=== PATIENT | male | born 1990 ===

== ENCOUNTER 2017-04-23 21:02 | Inpatient (IN) ==
--- NOTE | 2017-04-23 21:37 | Emergency Department Note ---
Jennifer Chappell Hilary, am scribing for, and in the presence of, Dmitriy Go MD 21:23. Donavan Chappell Charles R, MD, personally performed the services described in this documentation, ascribed by Kiara Rodriguez in my presence, and it is both accurate and complete . Arrival - Arrival Chief Complaint: Shortness of Breath Stated Complaint: shortness of breath Mode of Arrival: Stretcher Limitations: No Limitations Source: Patient, RN Notes Reviewed Time Seen by Provider: 04/23/17 21:11 - History of Present Illness HPI Narrative: Pt is a 27 y/o male brought into the ED via EMS with c/o trouble breathing which onset 3 days ago and has been getting worse. Pt states that he feels like he cant catch his breath and that he feels like he is smothering when he lays down. PT has a PMHx of cocaine abuse and ETOH abuse. He denies any pain as of now. No other complaints or problems stated in the ED. He openly admits to 10 years of daily cocaine usage, drinks 5 out of 7 days a week and smokes cigarettes. Onset (ago): day(s) Consistency: constant, now resolved Severity: mild Severity scale (1-10): 1 Allergies/Adverse Reactions: Allergies Allergy/AdvReac Type Severity Reaction Status Date / Time No Known Allergies Allergy Verified 04/23/17 21:17 Home Medications: Home Medications Medication Instructions Recorded Confirmed Type No Known Home Medications [No 04/23/17 04/23/17 History Known Home Medications] Review of System - Review of System 12 point system: reviewed and no additional remarkable complaints except as stated - Review of System Constitutional: Absent: fever Cardiovascular: Present: dyspnea on exertion (SOB). Absent: chest pain Medical,Surgical,& Family Hx - Social History Smoking Status: Current every day smoker Frequency of Alcohol Use: Frequently Type of Drug Use: Cocaine Exam Vital Signs: Vital Signs Temperature 97.7 F 04/23/17 21:22 Pulse Rate 106 H 04/23/17 21:22 Respiratory Rate 16 04/23/17 21:22 Blood Pressure 118/98 04/23/17 21:22 O2 Sat by Pulse Oximetry 96 04/23/17 21:22 - General General appearance: alert, in no apparent distress - Head Head exam: Present: atraumatic, normocephalic - Eye Eye exam: Present: normal appearance, PERRL, EOMI - ENT ENT exam: Present: mucous membranes moist, TM's normal bilaterally. Absent: mucous membranes dry - Neck Neck exam: Present: full ROM, trachea midline. Absent: tenderness - Chest Chest inspection: Present: symmetric chest wall rise. Absent: tenderness - Respiratory Respiratory exam: Present: rales (faint base rales), other (winded when he talks ). Absent: respiratory distress - Cardiovascular Cardiovascular exam: Present: normal rhythm, tachycardia, normal heart sounds. Absent: murmur, rubs, gallop - Abdominal Exam Abdominal exam: Present: soft, normal bowel sounds. Absent: distention, tenderness - Extremities Exam Extremities exam: Present: full ROM, pedal edema (+1 ). Absent: tenderness - Back Exam Back exam: Present: full ROM. Absent: tenderness - Neurological Exam Neurological exam: Present: alert, oriented X3, CN II-XII intact. Absent: motor sensory deficit - Psychiatric Psychiatric exam: Present: normal affect, normal mood - Skin Skin exam: Present: warm, dry, intact, normal color. Absent: rash Course - Consultations Consultation #1: Hospitalist will admit patient Time: 21:37 Results - Labs Lab Results: I have reviewed the patients labs Labs: All results reviewed from previous facility Disposition Clinical Impression: Congestive heart failure, Exertional dyspnea, Polysubstance abuse, Cocaine abuse, Methamphetamine abuse, Alcohol abuse Case discussed with: patient Disposition: Still a Patient Condition: Stable Time of Disposition: 21:38
--- NOTE | 2017-04-23 22:23 | Hospitalist History & Physical ---
Assessment and Plan (1) Congestive heart failure Status: Acute Assessment and plan: New onset most likely due to cardiomyopathy from ETOH and drugs Plan Telemetry serial cardiac enzymes, CBC, CMP, PT/INR,CXR,EKG ASA, ACEI, bblocker( will use beta and alpha blockers because cocaine is on board), lovenox IV diuretics, oxygen Nebs treatment Lipids, TSH, HbA1c UDS Echo cardiology consult Fluid restriction Current Visit: Yes (2) Cardiomyopathy Status: Acute Assessment and plan: due to ETOH and drugs to r/o ischemia Plan serial cardiac enzymes Current Visit: Yes (3) Dyspnea Status: Acute Assessment and plan: worse at night. Due to CHF Plan see treatment plan above Current Visit: Yes (4) Alcohol abuse Status: Acute Assessment and plan: Patient has been counseled to quit -thiamine, folic acid, MVA Current Visit: Yes (5) Cocaine abuse Status: Acute Assessment and plan: manager technical services consult for possible outpt rehab -Avoid selective bblockers inorder not to stimulate alpha receptors. Current Visit: Yes History of Present Illness Chief complaint: SOB History of present illness: Mr. Wallace is a 26 year old male with a history of cocaine, Nicotine and ETOH abuse who is currently unemployed and lives with his girlfriend. He was well until 3days ago when he started having SOB mostly at night. He has not been able to sleep well for the past three days because of him waking up every hr gasping for breath. He also cannot lay down flat without being SOB. He states an associated history of PND and cough occasionally productive of whitish- brownish sputum. He has some chest pain and discomfort every now and then. He also states an associated history of fever, chills and rigor. He vomited once but denies abdominal pain or melena stools. There is no associated leg swelling , palpitations or diaphoresis. He has had some diarrhea but no urinary symptoms.Labs from outside facility showed an elevated BNP. Home Medications Medication Instructions Recorded Confirmed Type No Known Home Medications [No 04/23/17 04/23/17 History Known Home Medications] Allergies Allergy/AdvReac Type Severity Reaction Status Date / Time No Known Allergies Allergy Verified 04/23/17 21:17 Medical,Surgical,& Family Hx - Social History Smoking Status: Current every day smoker Frequency of Alcohol Use: Frequently Type of Drug Use: Cocaine Lives With:: girlfriend 12 point system: reviewed and no additional remarkable complaints except as stated Exam - Constitutional Vitals: Period Temp Pulse Resp BP Sys/Miller Pulse Ox Last 24 Hr 97.7 F-97.7 F 98-106 16-18 118-118/98-98 96-98 General appearance: other (appears comfort at 45 degrees to the horizontal) - Head Head exam: Present: normal inspection - Respiratory Respiratory exam: Present: decreased breath sounds - Cardiovascular Cardiovascular exam: Present: regular rate and rhythm - GI/Abdominal GI/Abdominal exam: Present: normal bowel sounds - Extremities Exam Extremities exam: Present: normal inspection - Neurological Exam Neurological exam: Present: alert, oriented X3 Results - Labs Lab Results: I have reviewed the past 24 hour labs
[2017-04-23] MEDS ORDERED: ONDANSETRON 4 MG/2 ML VIAL IV PRN (23:48)
[2017-04-23] MEDS ORDERED: ALBUTEROL/IPRATROPIUM 3 ML NEB RESP TX STA (23:48)
[2017-04-23] MEDS ORDERED: LORazepam 1 MG TABLET PO PRN (23:57)
[2017-04-24] MEDS: ENOXAPARIN 40 MG/0.4 ML SYRINGE SUBCUT SCH ×2 (00:11→21:30)
[2017-04-24] MEDS: NICOTINE 21 MG/24 HR PATCH TRANSDERM PRN (00:16)
[2017-04-24 01:09] LABS: Basophils % 0.4 % (0.0-0.8); Eosinophils # 0.2 10*3/uL (0.0-0.87); Eosinophils % 2.7 % (0.00-10.9); Hematocrit 46.1 VOL% (42.0-52.0); Hemoglobin 15.3 GM/DL (14.0-18.0); Immature Granulocytes % 0.4 %; Immature Granulocytes Absolute 0.03 #; Lymphocytes % 39.1 % (21.2-54.2); Mean Corpuscular HGB Conc 33.2 GM/DL (32-36); Mean Corpuscular Hemoglobin 29 PG (27-34); Mean Platelet Volume 10.1 FL (9.6-12.0); Monocytes # 0.3 10*3/uL (0.11-0.8); Neutrophils # 4.1 10*3/uL (1.4-7.4); Neutrophils % 53.4 % (38.7-73.9); Platelet Count 321 T/CUMM (130-400); Red Blood Count 5.24 MC/CUMM (3.8-5.5); Red Cell Distribution Width 13.7 % (9.3-17.3); White Blood Count 7.7 T/CUMM (4-12)
[2017-04-24 01:35] LABS: Troponin I Only 0.017 NG/ML (0.00-0.045)
[2017-04-24 01:41] LABS: Albumin 3.8 G/DL (3.4-5.0); Bilirubin,Total 1.2 MG/DL (0.2-1.0); Calcium 9.3 MG/DL (8.5-10.1); Osmolality,Calculated 277.4 MOS/KG (273-304); Potassium 3.7 MMOL/L (3.5-5.1); Risk Ratio 5.92; Thyroid Stimulating Hormone 0.927 uIU/ml (0.358-3.74); Total Protein 7.9 G/DL (6.4-8.3); VLDL CHOLESTEROL 26.4 MG/DL
[2017-04-24 02:57] LABS: Apearance,Urine CLEAR (Clear); Blood, Urine Negative (Negative); Glucose,Urine (UA) Negative (Negative); Ketones,Urine Negative (Negative); Mucus,Urine Few /LPF (Occasional); Nitrite,Urine Negative (Negative); Protein,Urine 100 MG/DL; RBC,Urine 1 /HPF (0-4); Squamous Epithelial Cell,Urine Occasional /HPF (0-10); Urine Color Amber (Yellow); Urine Specific Gravity 1.033 (1.001-1.035); WBC,Urine 16 /HPF (0-6)
[2017-04-24 02:58] LABS: Bilirubin,Urine Small mg/dL (Negative)
[2017-04-24 04:48] LABS: Barbiturates Screen,Urine Negative (Negative); Benzodiazepines Screen,Urine Negative (Negative); Cannabinoid Screen,Urine Positive (Negative); Opiate Screen,Urine Negative (Negative); Phencyclidine Screen,Urine Negative (Negative)
--- NOTE | 2017-04-24 07:12 | XRay Report ---
History: Shortness of breath Date: 04/23/2017 Study: Chest x-ray AP portable Comparison exam: No remote chest x-ray There is cardiomegaly. There is mild hilar fullness bilaterally which may represent lymphadenopathy. Consider sarcoidosis. The mediastinal contours are otherwise unremarkable. There is no pulmonary vascular engorgement. The lungs and pleural spaces are clear. Osseous structures are similar. Impression: Cardiomegaly Bilateral hilar prominence which may represent nonspecific lymphadenopathy. Consider sarcoidosis PROCEDURE INTERPRETED AT [facility] DEPARTMENT OF RADIOLOGY Final Report Signed by: Dr. Stephanie Winters
[2017-04-24 07:43] LABS: Troponin I Only 0.023 NG/ML (0.00-0.045)
--- NOTE | 2017-04-24 08:08 | EKG Report ---
Stationary ECG Study [facility] Test Date: 04/24/2017 2:21:50 AM Pat Name: JACOBY MCARTHUR Department: Room: 280 Gender: M Hris Specialist: Earl : 1990 Requested by: Nikki Gonzalez Order Number: [id number] Reading MD: LAUREN BURRIS Intervals [place] Rate: 111 P: 72 WA: 178 QRS: -53 QRSD: 92 T: 33 QT: 309 QTc: 375 Interpretive Statements SINUS TACHYCARDIA LEFT ATRIAL ABNORMALITY ANTEROSEPTAL INFARCT, PREVIOUSLY CITED Electronically Signed On 04-26-17 14:02:19 CDT by LAUREN BURRIS [email or web address]
--- NOTE | 2017-04-24 08:08 | EKG Report ---
Stationary ECG Study [facility] ER Test Date: 04/23/2017 9:10:44 PM Pat Name: JACOBY MCARTHUR Department: Room: 280 Gender: M Chief Medical Technologist: ASHLEIGH : 1990 Requested by: Dmitriy Bowser Order Number: [id number] Reading MD: LAUREN BURRIS Intervals [place] Rate: 106 P: 78 MS: 144 QRS: -69 QRSD: 92 T: 36 QT: 330 QTc: 392 Interpretive Statements SINUS TACHYCARDIA LEFT ATRIAL ABNORMALITY POSSIBLE ANTEROSEPTAL MYOCARDIAL INFARCTION LEFT ATRIAL ABNORMALTIY Electronically Signed On 04-26-17 12:07:49 CDT by LAUREN BURRIS [email or web address]
[2017-04-24] MEDS ORDERED: POTASSIUM CHLORIDE 20 MEQ TABLET PO ONE (09:04)
[2017-04-24] MEDS: ASPIRIN 325 MG TABLET PO SCH (09:07)
[2017-04-24] MEDS: LISINOPRIL 2.5 MG TABLET PO SCH (09:07)
[2017-04-24] MEDS: MULTIVITAMIN (CENTRUM) TABLET PO SCH (09:07)
[2017-04-24] MEDS: PANTOPRAZOLE 40 MG TABLET PO SCH (09:07)
[2017-04-24] MEDS: THIAMINE 100 MG TABLET PO SCH (09:07)
[2017-04-24] MEDS: FOLIC ACID 1 MG TABLET PO SCH (09:07)
[2017-04-24] MEDS: FUROSEMIDE 40 MG/4 ML VIAL IV SCH ×2 (09:08→21:30)
[2017-04-24] MEDS: CARVEDILOL 3.125 MG TABLET PO SCH ×2 (09:08→21:29)
--- NOTE | 2017-04-24 10:37 | Cardiology Consult Note ---
<Carrie Lorenzo E - Last Filed: 04/24/17 10:25> Assessment and Plan - Time spent with patient Time spent with patient: Less than 30 minutes Time spent discussing smoking cessation with patient: 3 to 10 minutes (1) Shortness of breath Status: Acute Assessment and plan: SEE PLAN OF CARE LISTED BELOW Current Visit: Yes (2) Tobacco use Status: Chronic Assessment and plan: SEE PLAN OF CARE LISTED BELOW Current Visit: Yes (3) Sinus tachycardia Status: Acute Assessment and plan: SEE PLAN OF CARE LISTED BELOW Current Visit: Yes (4) Congestive heart failure Status: Acute Assessment and plan: SEE PLAN OF CARE LISTED BELOW Current Visit: Yes Qualifiers: Congestive heart failure chronicity: unspecified congestive heart failure chronicity (5) Polysubstance abuse Status: Chronic Assessment and plan: SEE PLAN OF CARE LISTED BELOW Current Visit: Yes (6) Cocaine abuse Status: Chronic Assessment and plan: SEE PLAN OF CARE LISTED BELOW Current Visit: Yes (7) Alcohol abuse Status: Chronic Assessment and plan: SEE PLAN OF CARE LISTED BELOW Current Visit: Yes History of Present Illness - Data of Consult Patient: new to practice Consult date: 04/24/17 Requesting Physician: Nikki Gonzalez - Consult Narrative Reason for consult: SOB History of present illness: [employer]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 Wallace, 26M, had a known history of cardiac disease. Risk factors include : Illicit drug abuse, specifically marijuana and cocaine, alcohol. Tobacco use daily. Patient was received through the ED of [facility] after being transferred from [facility] April 23, 2017. Patient reports over the past 3 days, he has been orthopneic and unable to sleep. Last evening, he became so orthopneic he felt as if he should be evaluated. Denies chest pain but describes a smothering sensation. This is been consistent over the past 3 days. He was found to be cocaine, marijuana and alcohol positive. Normally, patient reports that he is very active and can perform his activities without chest pain, heaviness, tightness or shortness of breath. ProBNP 2699, cardiac biomarkers negative. EKG does not reveal MT. Chest x-ray reveals bilateral hilar prominence which may represent nonspecific lymphadenopathy, consider sarcoidosis. Echocardiogram has been ordered. He has diuresed a significant amount and is feeling much better. We will await the results of the echocardiogram and further delineate a plan of care. Will further discuss with Dr. Sotelo and await additional recommendations. ASSESSMENT/PLAN: 1. SOB - suspect this is acute CHF. Echocardiogram is pending and will help further delineate cause of shortness of breath. To need diuresis, strict I&O and daily weights. 2. ACUTE CHF - Etiology to be determined, echo pending. NYHA Class III on arrival, now Class II. Will add ABEBA, betablocker if indicated. 3. COCAINE ABUSE - greater than 5 minutes was spent today discussing the merits of cessation of illicit drug use. 4. MARIJUANA ABUSE - greater than 5 minutes was spent today discussing the merits of cessation of illicit drug use. 5. ALCOHOL/TOBACCO ABUSE - greater than 5 minutes was spent today discussing the merits of cessation of alcohol/tobacco use. 6. SINUS TACHYCARDIA - if blood pressure will allow, and after results of echo returned, may consider betablocker. CC: Kell Russell MD - Home Medications and Allergies Home Medications: Home Medications Medication Instructions Recorded Confirmed Type No Known Home Medications [No 04/23/17 04/23/17 History Known Home Medications] Allergies/Adverse Reactions: Allergies Allergy/AdvReac Type Severity Reaction Status Date / Time No Known Allergies Allergy Verified 04/23/17 21:17 Review of systems: REVIEW OF SYSTEMS: - Constitutional Constitutional: Denies fatigue. Absent: syncope, anorexia, night sweats - EENT Eyes: Absent: blurry vision, loss of vision, diplopia Ears: Absent: decreased hearing, ear pain, ear discharge - Cardiovascular Cardiovascular: Denies: chest pain with exertion. Denies edema, palpitations. Absent: chest pain with deep breath, claudication - Respiratory Respiratory: Present: CHRISTENSEN, orthopnea. Denies cough. Absent: wheezing, hemoptysis, change in phlegm color - Gastrointestinal Gastrointestinal: Denies: constipation. Absent: abdominal pain, hematemesis, hematochezia, melena, change in bowel habits, nausea - Genitourinary Genitourinary: Absent: difficulty urinating, dysuria, urinary hesitancy, flank pain - Musculoskeletal Musculoskeletal: Present: back pain Absent: joint swelling, muscle cramps, muscle weakness - Neurological Neurological: Present: normal gait without frequent falls. Absent: dizziness, hemiparesis - Psychiatric Psychiatric: Absent: anxiety, depression, difficulty concentrating - Endocrine Endocrine: Denies fatigue. Absent: cold intolerance, heat intolerance, polyuria , polyphagia, polydipsia - Hematologic/Lymphatic Hematologic/Lymphatic: Present: easy bruising. Absent: easy bleeding -Integumentary Integumentary: Absent: lesions, rashes, skin breakdown Medical,Surgical,& Family Hx - Medical History Cardio: No history of: CAD, Hypertension, MT - Surgical History Thoracic Surgeries: Patient denies;: Lobectomy - Social History Smoking Status: Current every day smoker Have you smoked in the last 12 months: Yes Time spent discussing smoking cessation with patient: 3 to 10 minutes Frequency of Alcohol Use: Frequently Type of Drug Use: Cocaine, Methamphetamine Marital Status: Single Lives With:: Alone Functional capacity: independent ambulation Physical Examination Vital Signs Temp Pulse Resp BP Pulse Ox 97.7 F 106 H 16 118/98 98 04/23/17 21:12 04/23/17 21:12 04/23/17 21:12 04/23/17 21:12 04/23/17 21:12 Exam: General: [Appears well with no apparent distress.] [Pleasant and cooperative. ] [Appears comfortable.] HEENT: [PERRL, normocephalic, atraumatic. Mucous membranes moist. No jaundice noted. Conjunctiva moist and clear, sclerae anicteric] Neck: No JVD/HJR, no thyromegaly or lymphadenopathy noted. No carotid bruit appreciated Cardiac: [Regular rate and rhythm.] [No obvious murmur rub or gallop.] Lungs: [Clear to auscultation without accessory muscle use to assist the respiratory pattern.] Not requiring oxygen Abdomen: Soft, bowel sounds normoactive. Nontender and nondistended. No abdominal bruit or thrill noted. No masses noted. Musculoskeletal: No fluid collection. Decreased range of motion is noted. Extremities: No clubbing, cyanosis noted. [ No edema noted.] Upper extremity pulses 2+. Lower extremity pulses 2+. Capillary refill less than 3 seconds. Skin: No unusual lesions or rashes. No skin breakdown appreciated. Neuro: Awake, alert and oriented 3. Moves all extremities well without hemiparesis or paralysis. No essential tremor is appreciated. Result/EKG - Labs CBC & BMP: 04/24/17 00:51 04/24/17 00:51 Lab Results: I have reviewed the past 24 hour labs Labs: Laboratory Results - last 24 hr 04/24/17 04/24/17 04/24/17 00:51 00:51 00:51 WBC 7.7 RBC 5.24 Hgb 15.3 Hct 46.1 MCV 88.0 MCH 29 MCHC 33.2 RDW 13.7 Plt Count 321 MPV 10.1 Neut % (Auto) 53.4 Lymph % (Auto) 39.1 Candler % (Auto) 4.0 Eos % (Auto) 2.7 Baso % (Auto) 0.4 Neut # (Auto) 4.1 Lymph # (Auto) 3.0 Candler # (Auto) 0.3 Eos # (Auto) 0.2 Baso # (Auto) 0.0 Immature Gran % 0.4 Nucleated RBC % 0.0 Immature Gran # 0.03 Nucleated RBCs # 0.00 Sodium 140 Potassium 3.7 Chloride 106 Carbon Dioxide 27 Anion Gap 10.7 BUN 8 Creatinine 1.00 GFR Calculation 131 BUN/Creatinine Ratio 8.00 Glucose 124 H Hemoglobin A1c Calculated Osmolality 277.4 Calcium 9.3 Magnesium 2.0 Total Bilirubin 1.20 H AST 17 ALT 27 Alkaline Phosphatase 106 Total Creatine Kinase CK-MB (CK-2) Troponin I B-Natriuretic Peptide 827 H Total Protein 7.9 Albumin 3.8 Globulin 4.1 H Albumin/Globulin Ratio 0.9 L Triglycerides 132 Cholesterol 148 LDL Cholesterol 105.0 VLDL Cholesterol 26.4 HDL Cholesterol 25 L Heart Disease Risk Ratio 5.92 TSH 3rd Generation 0.927 Urine Color Urine Appearance Urine pH Ur Specific [place]kin Urine Protein Urine Glucose (UA) Urine Ketones Urine Blood Urine Nitrate Urine Bilirubin Urine Urobilinogen Urine Leukocytes Urine RBC Urine WBC Ur Squamous Epith Cells Urine Mucus Ur Culture Indicated? Urine Opiates Screen Ur Barbiturates Screen Ur Phencyclidine Scrn U Amphetamine/Methamph U Benzodiazepines Scrn U Cocaine Metab Screen U Cannabinoids Screen 04/24/17 04/24/17 04/24/17 00:51 00:51 01:30 WBC RBC Hgb Hct MCV MCH MCHC RDW Plt Count MPV Neut % (Auto) Lymph % (Auto) Candler % (Auto) Eos % (Auto) Baso % (Auto) Neut # (Auto) Lymph # (Auto) Candler # (Auto) Eos # (Auto) Baso # (Auto) Immature Gran % Nucleated RBC % Immature Gran # Nucleated RBCs # Sodium Potassium Chloride Carbon Dioxide Anion Gap BUN Creatinine GFR Calculation BUN/Creatinine Ratio Glucose Hemoglobin A1c 5.0 Calculated Osmolality Calcium Magnesium Total Bilirubin AST ALT Alkaline Phosphatase Total Creatine Kinase 145 CK-MB (CK-2) 1.4 Troponin I 0.017 B-Natriuretic Peptide Total Protein Albumin Globulin Albumin/Globulin Ratio Triglycerides Cholesterol LDL Cholesterol VLDL Cholesterol HDL Cholesterol Heart Disease Risk Ratio TSH 3rd Generation Urine Color Urine Appearance Urine pH Ur Specific [place] Urine Protein Urine Glucose (UA) Urine Ketones Urine Blood Urine Nitrate Urine Bilirubin Urine Urobilinogen Urine Leukocytes Urine RBC Urine WBC Ur Squamous Epith Cells Urine Mucus Ur Culture Indicated? Urine Opiates Screen Negative Ur Barbiturates Screen Negative Ur Phencyclidine Scrn Negative U Amphetamine/Methamph Negative U Benzodiazepines Scrn Negative U Cocaine Metab Screen Positive H U Cannabinoids Screen Positive H 04/24/17 04/24/17 01:30 07:04 WBC RBC Hgb Hct MCV MCH MCHC RDW Plt Count MPV Neut % (Auto) Lymph % (Auto) Candler % (Auto) Eos % (Auto) Baso % (Auto) Neut # (Auto) Lymph # (Auto) Candler # (Auto) Eos # (Auto) Baso # (Auto) Immature Gran % Nucleated RBC % Immature Gran # Nucleated RBCs # Sodium Potassium Chloride Carbon Dioxide Anion Gap BUN Creatinine GFR Calculation BUN/Creatinine Ratio Glucose Hemoglobin A1c Calculated Osmolality Calcium Magnesium Total Bilirubin AST ALT Alkaline Phosphatase Total Creatine Kinase 109 D CK-MB (CK-2) 1.0 Troponin I 0.023 B-Natriuretic Peptide Total Protein Albumin Globulin Albumin/Globulin Ratio Triglycerides Cholesterol LDL Cholesterol VLDL Cholesterol HDL Cholesterol Heart Disease Risk Ratio TSH 3rd Generation Urine Color Araseli Urine Appearance Clear Urine pH 5.0 Ur Specific [place] 1.033 Urine Protein 100 Urine Glucose (UA) Negative Urine Ketones Negative Urine Blood Negative Urine Nitrate Negative Urine Bilirubin Small H Urine Urobilinogen 4.0 H Urine Leukocytes Negative Urine RBC 1 Urine WBC 16 Ur Squamous Epith Cells Occasional Urine Mucus Few Ur Culture Indicated? Results to follow Urine Opiates Screen Ur Barbiturates Screen Ur Phencyclidine Scrn U Amphetamine/Methamph U Benzodiazepines Scrn U Cocaine Metab Screen U Cannabinoids Screen - Diagnostic Findings Procedure: Chest x-ray: report reviewed by me - EKG EKG results: interpreted by mo EKG shows: tachycardia <Josue Sotelo - Last Filed: 04/24/17 11:47> History of Present Illness - Consult Narrative History of present illness: Cardiology addendum Patient examined chart reviewed and discussed with nurse Carrie lorenzo. Patient has cardiomegaly by chest x-ray and heart failure. BNP level 827. This patient has been starting cocaine for the past 10 years, at least 2 or 3 times per week. He also consume 1/5 of whiskey at least twice per week. He has a summation gallop on examination. Plan Echo Doppler IV Lasix 40 mg twice daily Carvedilol 3.125 mg twice daily Lisinopril 2.5 mg daily BMP in a.m. CC: Kell Russell MD Physical Examination Vital Signs Temp Pulse Resp BP Pulse Ox 97.7 F 106 H 16 118/98 98 04/23/17 21:12 04/23/17 21:12 04/23/17 21:12 04/23/17 21:12 04/23/17 21:12 Result/EKG - Labs CBC & BMP: 04/24/17 00:51 04/24/17 00:51 Labs: Laboratory Results - last 24 hr 04/24/17 04/24/17 04/24/17 00:51 00:51 00:51 WBC 7.7 RBC 5.24 Hgb 15.3 Hct 46.1 MCV 88.0 MCH 29 MCHC 33.2 RDW 13.7 Plt Count 321 MPV 10.1 Neut % (Auto) 53.4 Lymph % (Auto) 39.1 Candler % (Auto) 4.0 Eos % (Auto) 2.7 Baso % (Auto) 0.4 Neut # (Auto) 4.1 Lymph # (Auto) 3.0 Candler # (Auto) 0.3 Eos # (Auto) 0.2 Baso # (Auto) 0.0 Immature Gran % 0.4 Nucleated RBC % 0.0 Immature Gran # 0.03 Nucleated RBCs # 0.00 Sodium 140 Potassium 3.7 Chloride 106 Carbon Dioxide 27 Anion Gap 10.7 BUN 8 Creatinine 1.00 GFR Calculation 131 BUN/Creatinine Ratio 8.00 Glucose 124 H Hemoglobin A1c Calculated Osmolality 277.4 Calcium 9.3 Magnesium 2.0 Total Bilirubin 1.20 H AST 17 ALT 27 Alkaline Phosphatase 106 Total Creatine Kinase CK-MB (CK-2) Troponin I B-Natriuretic Peptide 827 H Total Protein 7.9 Albumin 3.8 Globulin 4.1 H Albumin/Globulin Ratio 0.9 L Triglycerides 132 Cholesterol 148 LDL Cholesterol 105.0 VLDL Cholesterol 26.4 HDL Cholesterol 25 L Heart Disease Risk Ratio 5.92 TSH 3rd Generation 0.927 Urine Color Urine Appearance Urine pH Ur Specific [place] Urine Protein Urine Glucose (UA) Urine Ketones Urine Blood Urine Nitrate Urine Bilirubin Urine Urobilinogen Urine Leukocytes Urine RBC Urine WBC Ur Squamous Epith Cells Urine Mucus Ur Culture Indicated? Urine Opiates Screen Ur Barbiturates Screen Ur Phencyclidine Scrn U Amphetamine/Methamph U Benzodiazepines Scrn U Cocaine Metab Screen U Cannabinoids Screen 04/24/17 04/24/17 04/24/17 00:51 00:51 01:30 WBC RBC Hgb Hct MCV MCH MCHC RDW Plt Count MPV Neut % (Auto) Lymph % (Auto) Candler % (Auto) Eos % (Auto) Baso % (Auto) Neut # (Auto) Lymph # (Auto) Candler # (Auto) Eos # (Auto) Baso # (Auto) Immature Gran % Nucleated RBC % Immature Gran # Nucleated RBCs # Sodium Potassium Chloride Carbon Dioxide Anion Gap BUN Creatinine GFR Calculation BUN/Creatinine Ratio Glucose Hemoglobin A1c 5.0 Calculated Osmolality Calcium Magnesium Total Bilirubin AST ALT Alkaline Phosphatase Total Creatine Kinase 145 CK-MB (CK-2) 1.4 Troponin I 0.017 B-Natriuretic Peptide Total Protein Albumin Globulin Albumin/Globulin Ratio Triglycerides Cholesterol LDL Cholesterol VLDL Cholesterol HDL Cholesterol Heart Disease Risk Ratio TSH 3rd Generation Urine Color Urine Appearance Urine pH Ur Specific [place] Urine Protein Urine Glucose (UA) Urine Ketones Urine Blood Urine Nitrate Urine Bilirubin Urine Urobilinogen Urine Leukocytes Urine RBC Urine WBC Ur Squamous Epith Cells Urine Mucus Ur Culture Indicated? Urine Opiates Screen Negative Ur Barbiturates Screen Negative Ur Phencyclidine Scrn Negative U Amphetamine/Methamph Negative U Benzodiazepines Scrn Negative U Cocaine Metab Screen Positive H U Cannabinoids Screen Positive H 04/24/17 04/24/17 01:30 07:04 WBC RBC Hgb Hct MCV MCH MCHC RDW Plt Count MPV Neut % (Auto) Lymph % (Auto) Candler % (Auto) Eos % (Auto) Baso % (Auto) Neut # (Auto) Lymph # (Auto) Candler # (Auto) Eos # (Auto) Baso # (Auto) Immature Gran % Nucleated RBC % Immature Gran # Nucleated RBCs # Sodium Potassium Chloride Carbon Dioxide Anion Gap BUN Creatinine GFR Calculation BUN/Creatinine Ratio Glucose Hemoglobin A1c Calculated Osmolality Calcium Magnesium Total Bilirubin AST ALT Alkaline Phosphatase Total Creatine Kinase 109 D CK-MB (CK-2) 1.0 Troponin I 0.023 B-Natriuretic Peptide Total Protein Albumin Globulin Albumin/Globulin Ratio Triglycerides Cholesterol LDL Cholesterol VLDL Cholesterol HDL Cholesterol Heart Disease Risk Ratio TSH 3rd Generation Urine Color Araseli Urine Appearance Clear Urine pH 5.0 Ur Specific [place] 1.033 Urine Protein 100 Urine Glucose (UA) Negative Urine Ketones Negative Urine Blood Negative Urine Nitrate Negative Urine Bilirubin Small H Urine Urobilinogen 4.0 H Urine Leukocytes Negative Urine RBC 1 Urine WBC 16 Ur Squamous Epith Cells Occasional Urine Mucus Few Ur Culture Indicated? Results to follow Urine Opiates Screen Ur Barbiturates Screen Ur Phencyclidine Scrn U Amphetamine/Methamph U Benzodiazepines Scrn U Cocaine Metab Screen U Cannabinoids Screen
--- NOTE | 2017-04-24 13:53 | Hospitalist Progress Note ---
Assessment and Plan (1) Congestive heart failure Status: Acute Assessment and plan: Follow-up echo. Cardiology consult reviewed. Agree with beta-jacinto and ABEBA inhibitor. Lasix given Current Visit: Yes Qualifiers: Congestive heart failure chronicity: unspecified congestive heart failure chronicity (2) Polysubstance abuse Status: Chronic Current Visit: Yes (3) Cardiomyopathy Status: Acute Current Visit: Yes Hospitalist: Subjective Interval history: Patient seen and examined. No acute events overnight. Case discussed with nursing staff. Labs reviewed. 26-year-old male admitted with new onset congestive heart failure. Echo is pending. Cardiology consult noted. Agree with beta-jacinto and ABEBA inhibitor. Cardiomyopathy likely related to drug use. Exam - Constitutional Vitals: Period Temp Pulse Resp BP Sys/Miller Pulse Ox Last 24 Hr 97.1 F-98.2 F 75-121 16-22 116-132/66-98 92-100 Exam: Constitutional System: Mild distress. No tremulousness. Head: Normocephalic, atraumatic. Ears, Nose and Throat System: No pain or tenderness. No epistaxis or discharge Eyes System: Pupils equal, round, and reactive. Extraocular muscles intact. Neck: Supple, without adenopathy, No jugular venous distention. No thyromegaly, neck mass, or prior surgery apparent. Respiratory System: Chest clear to auscultation. Cardiovascular System: Heart with regular rate and rhythm. GI System: Abdomen soft, nontender. Normo active bowel sounds present. Musculoskeletal System: limbs with no pedal edema. Full distal pulses. Neurological System: No discernable sensory deficit. No aphasia Psychiatric System: Conversation is rational Results - Labs CBC & BMP: 04/24/17 00:51 04/24/17 00:51 Lab Results: I have reviewed the past 24 hour labs
--- NOTE | 2017-04-24 18:19 | ECHO Report ---
Juan Wallace Exam Date: 04/24/2017 08:02 Referring Physician: Technologist: chaitanya Herman ARDMS, RVT Age: 26 Ht (in): 73 Wt (lb): 220 Gender: M Exam Location: [facility] Echo Indications: Dyspnea, unspecified, Cardiomyopathy, unspecified, Polysubstance abuse, CHF, Alcohol abuse BP: 116 / 82 HR: 118 Rhythm: Sinus Technical Quality: IMPRESSIONS Four-chamber cardiac enlargement Severely depressed ejection fraction of 10% with global hypokinesis Grade 3 diastolic dysfunction Mild mitral regurgitation Mild pulmonic insufficiency Trace aortic insufficiency Mild tricuspid regurgitation with right ventricular systolic pressure estimated to be 31 mmHg plus right atrial pressure MEASUREMENTS (Male / Female) Normal Values 2D ECHO LV Diastolic Diameter PLAX 5.5 cm 4.2 - 5.9 / 3.9 - 5.3 cm LV Systolic Diameter PLAX 4.8 cm LV Fractional Shortening PLAX 12.8 % IVS Diastolic Thickness 0.9 cm 0.6 - 1.0 / 0.6 - 0.9 cm LVPW Diastolic Thickness 0.9 cm 0.6 - 1.0 / 0.6 - 0.9 cm RV Internal Dim ED PLAX 6.3 cm Aortic Root Diameter 3.1 cm LA Systolic Diameter LX 5.0 cm 3.0 - 4.0 / 2.7 - 3.8 cm DOPPLER TR Peak Velocity 308.0 cm/s TR Peak Gradient 37.9 mmHg FINDINGS Left Ventricle Normal left ventricular cavity size. Normal left ventricular wall thickness. Left ventricular ejection fraction is estimated at 10 %. Grade 3 diastolic dysfunction or restrictive physiology. Right Ventricle The right ventricle is enlarged Right Atrium The right atrium is enlarged. Left Atrium Moderately increased left atrial size. Mitral Valve Morphologically normal mitral valve. Mild mitral valve regurgitation. Aortic Valve No aortic valve stenosis. Trace to mild aortic valve regurgitation. Tricuspid Valve Morphologically normal tricuspid valve. Mild tricuspid valve regurgitation. Tricuspid regurgitation velocities suggest a RVSP of 31 mmHg plus the right atrial pressure. Pulmonic Valve Morphologically normal pulmonic valve. Mild pulmonary insufficiency with EDV of 1.5 m/sec. Pericardium Normal pericardium without effusion. Aorta Normal ascending aorta dimension. Nahed Banda (Electronically Signed) Final Date: 24 April 2017 18:18
[2017-04-25] MEDS: NICOTINE 21 MG/24 HR PATCH TRANSDERM PRN (00:21)
[2017-04-25 05:44] LABS: Basophils % 0.4 % (0.0-0.8); Eosinophils # 0.2 10*3/uL (0.0-0.87); Eosinophils % 2.2 % (0.00-10.9); Hematocrit 46.5 VOL% (42.0-52.0); Hemoglobin 15.4 GM/DL (14.0-18.0); Immature Granulocytes % 0.5 %; Immature Granulocytes Absolute 0.04 #; Lymphocytes # 2.6 10*3/uL (1.4-4.0); Mean Corpuscular HGB Conc 33.1 GM/DL (32-36); Mean Corpuscular Hemoglobin 29 PG (27-34); Mean Corpuscular Volume 87.4 FL (87-102); Mean Platelet Volume 10.4 FL (9.6-12.0); Monocytes # 0.4 10*3/uL (0.11-0.8); Monocytes % 4.9 % (1.7-12.7); Neutrophils # 5.2 10*3/uL (1.4-7.4); Platelet Count 353 T/CUMM (130-400); Red Blood Count 5.32 MC/CUMM (3.8-5.5); Red Cell Distribution Width 13.6 % (9.3-17.3); White Blood Count 8.5 T/CUMM (4-12)
[2017-04-25 06:12] LABS: Calcium 8.8 MG/DL (8.5-10.1); Magnesium 2.1 MG/DL (1.8-2.4); Osmolality,Calculated 280.4 MOS/KG (273-304); Potassium 4.1 MMOL/L (3.5-5.1)
[2017-04-25] MEDS: ASPIRIN 325 MG TABLET PO SCH (10:14)
[2017-04-25] MEDS: LISINOPRIL 2.5 MG TABLET PO SCH ×2 (10:15→21:54)
[2017-04-25] MEDS: MULTIVITAMIN (CENTRUM) TABLET PO SCH (10:15)
[2017-04-25] MEDS: CARVEDILOL 3.125 MG TABLET PO SCH ×2 (10:15→21:55)
[2017-04-25] MEDS: THIAMINE 100 MG TABLET PO SCH (10:15)
--- NOTE | 2017-04-25 10:15 | Cardiology Progress Note ---
Addendum entered and electronically signed by Carrie Hanley NP 04/25/17 11: 16: Please note I have discussed this case with case management. Apparently, patient does have insurance with [employer]. Initially, this was not recorded in [facility]. When I spoke with patient this morning, I did not know he had health insurance. In fact, when I encouraged patient to seek out health insurance benefits, he agreed that he would do this. However, if patient actually has insurance coverage, he may be a candidate for LifeVest given the severity of his cardiomyopathy. He has had no arrhythmia recorded but he is at risk for sudden cardiac . I have discussed this with case management and we will work toward securing a LifeVest if covered. Also, he will be reassessed in clinic, undergo repeat echocardiogram in 90 days to reevaluate his cardiomyopathy on maximal medical therapy. If at that time he is not improved, he will need cardiac catheterization and ICD. Original Note: <Carrie Hanley - Last Filed: 04/25/17 10:21> Assessment and Plan - Time spent with patient Time spent with patient: Greater than 30 minutes Time spent discussing smoking cessation with patient: more than 10 minutes (1) Shortness of breath Status: Resolved Assessment and plan: SEE PLAN OF CARE LISTED BELOW Current Visit: Yes (2) Tobacco use Status: Chronic Assessment and plan: SEE PLAN OF CARE LISTED BELOW Current Visit: Yes (3) Sinus tachycardia Status: Acute Assessment and plan: SEE PLAN OF CARE LISTED BELOW Current Visit: Yes (4) Congestive heart failure Status: Acute Assessment and plan: SEE PLAN OF CARE LISTED BELOW Current Visit: Yes Qualifiers: Congestive heart failure type: combined Congestive heart failure chronicity : acute Qualified Code(s): I50.41 - Acute combined systolic (congestive) and diastolic (congestive) heart failure (5) Polysubstance abuse Status: Chronic Assessment and plan: SEE PLAN OF CARE LISTED BELOW Current Visit: Yes (6) Cocaine abuse Status: Chronic Assessment and plan: SEE PLAN OF CARE LISTED BELOW Current Visit: Yes (7) Alcohol abuse Status: Chronic Assessment and plan: SEE PLAN OF CARE LISTED BELOW Current Visit: Yes Cardiology - PN: Subj Interval history: [employer]: (NEW) DR. SOTELO Mr. Wallace, 26M, had a known history of cardiac disease. Risk factors include : Illicit drug abuse, specifically marijuana and cocaine, alcohol. Tobacco use daily. Patient was received through the ED of [facility] after being transferred from [facility] April 23, 2017. Patient reports over the past 3 days, he has been orthopneic and unable to sleep. Last evening, he became so orthopneic he felt as if he should be evaluated. Denies chest pain but describes a smothering sensation. This is been consistent over the past 3 days. He was found to be cocaine, marijuana and alcohol positive. Normally, patient reports that he is very active and can perform his activities without chest pain, heaviness, tightness or shortness of breath. ProBNP 2699, cardiac biomarkers negative. EKG does not reveal MO. Chest x-ray reveals bilateral hilar prominence which may represent nonspecific lymphadenopathy, consider sarcoidosis. Echocardiogram has been ordered. He has diuresed a significant amount and is feeling much better. Patient has a long-standing history of illicit drug abuse. For the past 10 years, he has smoked cocaine almost daily until the past 1 year when he does this several times a week. Patient acknowledges that he drinks beer frequently and drinks a pint of [place] whiskey at least twice a week. He smokes marijuana most days. Greater than 10 minutes was spent today discussing the need for cessation of all illicit drugs including tobacco products APRIL 25, 2017: Overnight, patient's symptoms of CHF have resolved. He looks very comfortable and denies chest pain, heaviness or tightness, shortness or breath. Echo revealed severe cardiomyopathy, EF 10%, grade 3 diastolic dysfunction, PAP 31 mmHg + RAP. Greater than 45 minutes was spent today discussing the implications of this new diagnosis, treatment and expectations. He is currently on low-dose beta-jacinto, ABEBA inhibitor. Heart rate remains 92 -113 bpm, sinus tachycardia. Will discuss with Dr. Sotelo with continuing current plan versus increasing beta-jacinto dose and holding ABEBA inhibitor. Patient does not have insurance. I will ask case hardener to discuss the possibility of short-term disability and possibly long-term disability given the new diagnosis of severe cardiomyopathy. We discussed the possibility of need for ICD in approximately 90 days if his cardiomyopathy does not improve. Of course, patient would need heart catheterization prior to ICD to rule out an obstructive cause however suspect it is related to the illicit drug abuse. However, patient must secure insurance benefits before he becomes a candidate. Also, patient must abstain from all drugs, demonstrate compliance and follow-up outpatient. He tells me he will do "whatever it takes" to demonstrate compliance and improve his health. May be eligible for discharge today as he has improved so much. He will need education regarding CHF teaching, Lasix 20 mg orally daily to take as needed. I will further discuss with Dr. Sotelo and await additional recommendations. ASSESSMENT/PLAN: 1. SOB - acute CHF. Echocardiogram reveals severe cardiomyopathy. Resolved. 2. ACUTE CHF -secondary to severe systolic and diastolic dysfunction, EF 10%. Initially NYHA Class III on arrival, now Class I - II. Tolerating low-dose ABEBA , betablocker. 3. COCAINE ABUSE - greater than 45 minutes was spent today discussing the merits of cessation of illicit drug use. 4. MARIJUANA ABUSE - greater than 45 minutes was spent today discussing the merits of cessation of illicit drug use. 5. ALCOHOL/TOBACCO ABUSE - greater than 45 minutes was spent today discussing the merits of cessation of alcohol/tobacco use. 6. SINUS TACHYCARDIA -may escalate beta-jacinto but suspect we will have to stop his ABEBA inhibitor. Will discuss this with Dr. Sotelo. 7. CARDIOMEGALY - continue current plan of care. Exam (Progress Note) - Constitutional Vitals: Period Temp Pulse Resp BP Sys/Miller Pulse Ox Last 24 Hr 96.4 F-98.2 F 92-118 18-20 116-126/75-88 97-100 Exam: General: [Appears well with no apparent distress.] [Pleasant and cooperative. ] [Appears comfortable.] HEENT: [PERRL, normocephalic, atraumatic. Mucous membranes moist. No jaundice noted. Conjunctiva moist and clear, sclerae anicteric] Neck: No JVD/HJR, no thyromegaly or lymphadenopathy noted. No carotid bruit appreciated Cardiac: [Fast rate regular rhythm [No murmur noted. S4 gallop noted. ] Lungs: [Clear to auscultation without accessory muscle use to assist the respiratory pattern.] Not requiring oxygen Abdomen: Soft, bowel sounds normoactive. Nontender and nondistended. No abdominal bruit or thrill noted. No masses noted. Musculoskeletal: No fluid collection. Decreased range of motion is noted. Extremities: No clubbing, cyanosis noted. [ No edema noted.] Upper extremity pulses 2+. Lower extremity pulses 2+. Capillary refill less than 3 seconds. Skin: No unusual lesions or rashes. No skin breakdown appreciated. Neuro: Awake, alert and oriented 3. Moves all extremities well without hemiparesis or paralysis. No essential tremor is appreciated. Result/EKG - Labs CBC & BMP: 04/25/17 05:14 04/25/17 05:14 Lab Results: I have reviewed the past 24 hour labs Labs: Laboratory Results - last 24 hr 04/25/17 04/25/17 04/25/17 05:14 05:14 05:14 WBC 8.5 RBC 5.32 Hgb 15.4 Hct 46.5 MCV 87.4 MCH 29 MCHC 33.1 RDW 13.6 Plt Count 353 MPV 10.4 Neut % (Auto) 61.0 Lymph % (Auto) 31.0 [place] % (Auto) 4.9 Eos % (Auto) 2.2 Baso % (Auto) 0.4 Neut # (Auto) 5.2 Lymph # (Auto) 2.6 [place] # (Auto) 0.4 Eos # (Auto) 0.2 Baso # (Auto) 0.0 Immature Gran % 0.5 Nucleated RBC % 0.0 Immature Gran # 0.04 Nucleated RBCs # 0.00 Immature Plt Fraction 0.0 Sodium 140 Potassium 4.1 Chloride 106 Carbon Dioxide 24 Anion Gap 14.1 BUN 15 Creatinine 1.00 GFR Calculation 131 BUN/Creatinine Ratio 15.00 Glucose 111 H Calculated Osmolality 280.4 Calcium 8.8 Magnesium 2.1 B-Natriuretic Peptide 1075 H - EKG EKG results: interpreted by me EKG shows: tachycardia Specialty Discharge - Follow Up or Referrals Follow up with: Josue Sotelo MD [Physician] - (2-3 WEEKS. ) <Josue Sotelo - Last Filed: 04/25/17 11:28> Cardiology - PN: Subj Interval history: Cardiology addendum. Echo showed ejection fraction of 10% with severe global hypokinesis, structurally normal valves, normal RV function, mild TR PA pressure around 35 with no effusion Blood pressure 112/74. Telemetry shows steady sinus rhythm. No ectopy or pauses. Patient feels better. Regular rhythm with summation gallop Decreased breath sounds with basilar crackles Abdomen soft no leg edema Lab data today White count 8.5 hemoglobin 15.4 hematocrit 46.5 Sodium 140 potassium 4.1 chloride 106 CO2 24 BUN 15 creatinine 1.0 BNP level has increased to 1075 Plan Increase lisinopril 2.5 mg twice daily Increase Lasix 80 mg IV twice daily Cardiac cath Friday Exam (Progress Note) - Constitutional Vitals: Period Temp Pulse Resp BP Sys/Miller Pulse Ox Last 24 Hr 96.4 F-98.2 F 92-118 18-20 116-126/75-88 97-100 Result/EKG - Labs CBC & BMP: 04/25/17 05:14 04/25/17 05:14 Labs: Laboratory Results - last 24 hr 04/25/17 04/25/17 04/25/17 05:14 05:14 05:14 WBC 8.5 RBC 5.32 Hgb 15.4 Hct 46.5 MCV 87.4 MCH 29 MCHC 33.1 RDW 13.6 Plt Count 353 MPV 10.4 Neut % (Auto) 61.0 Lymph % (Auto) 31.0 [place] % (Auto) 4.9 Eos % (Auto) 2.2 Baso % (Auto) 0.4 Neut # (Auto) 5.2 Lymph # (Auto) 2.6 [place] # (Auto) 0.4 Eos # (Auto) 0.2 Baso # (Auto) 0.0 Immature Gran % 0.5 Nucleated RBC % 0.0 Immature Gran # 0.04 Nucleated RBCs # 0.00 Immature Plt Fraction 0.0 Sodium 140 Potassium 4.1 Chloride 106 Carbon Dioxide 24 Anion Gap 14.1 BUN 15 Creatinine 1.00 GFR Calculation 131 BUN/Creatinine Ratio 15.00 Glucose 111 H Calculated Osmolality 280.4 Calcium 8.8 Magnesium 2.1 B-Natriuretic Peptide 1075 H
[2017-04-25] MEDS: PANTOPRAZOLE 40 MG TABLET PO SCH (10:16)
[2017-04-25] MEDS: FOLIC ACID 1 MG TABLET PO SCH (10:16)
[2017-04-25] MEDS: FUROSEMIDE 40 MG/4 ML VIAL IV SCH ×2 (10:17→17:28)
[2017-04-25] MEDS: POTASSIUM CHLORIDE 20 MEQ TABLET PO SCH (14:12)
--- NOTE | 2017-04-25 14:26 | Hospitalist Progress Note ---
Assessment and Plan (1) Cardiomyopathy Status: Acute Assessment and plan: Echocardiogram thickened for four-chamber and there cardiac enlargement severely depressed ejection fraction of 10% with global hypokinesis. We will continue beta-blockers and ABEBA inhibitors per cardiology recommendation. The patient was evaluated this morning by cardiology and may actually be a candidate for LifeVest placement. I agree with events specialist plan for heart cath on Friday. Current Visit: Yes (2) Congestive heart failure Status: Acute Assessment and plan: BNP noted at 1075; a noted increase from 827 on yesterday. The patient is asymptomatic at this time. We will continue diuretic as previously ordered. Will check BNP in a.m. Current Visit: Yes Qualifiers: Congestive heart failure type: combined Congestive heart failure chronicity : acute Qualified Code(s): I50.41 - Acute combined systolic (congestive) and diastolic (congestive) heart failure Hospitalist: Subjective Interval history: Patient seen and examined; no significant overnight events reported per staff. Evaluated by cardiology on yesterday; agree with plan for heart cath. Exam - Constitutional Vitals: Period Temp Pulse Resp BP Sys/Miller Pulse Ox Last 24 Hr 96.4 F-98.2 F 92-116 18-20 115-126/75-88 97-100 General appearance: normal weight, no acute distress - Head Head exam: Present: normal inspection, normocephalic - Eye Eye exam: Present: EOMI. Absent: conjunctival injection Pupils: Present: CHARLIE, normal accommodation - ENT ENT exam: Present: normal exam, normal external ear exam - Neck Neck exam: Present: normal inspection. Absent: lymphadenopathy, meningismus, thyromegaly - Respiratory Respiratory exam: Present: clear to auscultation bilaterally. Absent: rales, rhonchi, stridor, wheezes - Cardiovascular Cardiovascular exam: Present: regular rate and rhythm. Absent: carotid bruit, diastolic murmur, gallop, JVD, rubs, systolic murmur - GI/Abdominal GI/Abdominal exam: Present: normal bowel sounds. Absent: tenderness, rebound, soft - Extremities Exam Extremities exam: Present: normal inspection, normal capillary refill, full ROM. Absent: edema - Back Exam Back exam: Present: normal inspection - Neurological Exam Neurological exam: Present: alert, oriented X3, CN II-XII intact - Psychiatric Psychiatric exam: Present: normal affect, normal mood - Skin Skin exam: Present: normal color, warm, dry Results - Labs CBC & BMP: 04/25/17 05:14 04/25/17 05:14 Specialty Discharge - Follow Up or Referrals Follow up with: Josue Sotelo MD [Physician] - (2-3 WEEKS. )
[2017-04-25] MEDS ORDERED: FUROSEMIDE 40 MG TABLET PO SCH (16:00)
[2017-04-25] MEDS: ENOXAPARIN 40 MG/0.4 ML SYRINGE SUBCUT SCH (21:55)
[2017-04-26 06:08] LABS: Basophils % 0.4 % (0.0-0.8); Eosinophils # 0.3 10*3/uL (0.0-0.87); Hematocrit 43.5 VOL% (42.0-52.0); Hemoglobin 14.7 GM/DL (14.0-18.0); Immature Granulocytes % 0.3 %; Immature Granulocytes Absolute 0.02 #; Lymphocytes # 1.9 10*3/uL (1.4-4.0); Lymphocytes % 26.2 % (21.2-54.2); Mean Corpuscular HGB Conc 33.8 GM/DL (32-36); Mean Corpuscular Hemoglobin 29 PG (27-34); Mean Platelet Volume 10.9 FL (9.6-12.0); Monocytes # 0.5 10*3/uL (0.11-0.8); Monocytes % 6.8 % (1.7-12.7); Neutrophils # 4.6 10*3/uL (1.4-7.4); Neutrophils % 62.3 % (38.7-73.9); Platelet Count 341 T/CUMM (130-400); Red Cell Distribution Width 13.6 % (9.3-17.3); White Blood Count 7.3 T/CUMM (4-12)
[2017-04-26 06:42] LABS: Albumin 3.5 G/DL (3.4-5.0); Bilirubin,Total 0.9 MG/DL (0.2-1.0); Calcium 9.1 MG/DL (8.5-10.1); Magnesium 2.1 MG/DL (1.8-2.4); Osmolality,Calculated 281.4 MOS/KG (273-304); Phosphorous 3.9 MG/DL (2.5-4.9); Potassium 3.5 MMOL/L (3.5-5.1); Total Protein 7.3 G/DL (6.4-8.3)
[2017-04-26] MEDS: LISINOPRIL 2.5 MG TABLET PO SCH ×2 (08:23→21:14)
[2017-04-26] MEDS: THIAMINE 100 MG TABLET PO SCH (08:23)
[2017-04-26] MEDS: FOLIC ACID 1 MG TABLET PO SCH (08:23)
[2017-04-26] MEDS: MULTIVITAMIN (CENTRUM) TABLET PO SCH (08:24)
[2017-04-26] MEDS: CARVEDILOL 3.125 MG TABLET PO SCH ×2 (08:24→21:15)
[2017-04-26] MEDS: PANTOPRAZOLE 40 MG TABLET PO SCH (08:24)
[2017-04-26] MEDS: ASPIRIN EC 81 MG TABLET PO SCH (08:25)
[2017-04-26] MEDS: POTASSIUM CHLORIDE 20 MEQ TABLET PO SCH (08:28)
[2017-04-26] MEDS: FUROSEMIDE 40 MG/4 ML VIAL IV SCH ×2 (08:28→16:44)
--- NOTE | 2017-04-26 08:55 | Hospitalist Progress Note ---
Assessment and Plan - Time spent with patient Time spent with patient: Less than 30 minutes (1) Cardiomyopathy Status: Acute Assessment and plan: Patient has cardiomyopathy with ejection fraction of 10% with global hypokinesis on echocardiogram. He is currently being managed medically. Cardiology is following and we will await further recommendations in regards to cardiac cath, LifeVest placement, discharge planning. Current Visit: Yes Hospitalist: Subjective Interval history: Chart is been reviewed and patient examined. Patient has no complaints of chest pain or shortness of breath this time. He is ambulatory in the room. Exam - Constitutional Vitals: Period Temp Pulse Resp BP Sys/Miller Pulse Ox Last 24 Hr 97.3 F-97.7 F 100-113 18-20 96-122/65-80 95-99 General appearance: no acute distress - Head Head exam: Present: normocephalic, atraumatic - Eye Eye exam: Present: EOMI Pupils: Present: CHARLIE - ENT ENT exam: Present: normal exam - Neck Neck exam: Present: normal inspection - Respiratory Respiratory exam: Present: clear to auscultation bilaterally. Absent: rales, rhonchi, wheezes - Cardiovascular Cardiovascular exam: Present: regular rate and rhythm. Absent: tachycardia - GI/Abdominal GI/Abdominal exam: Present: normal bowel sounds, soft. Absent: mass, tenderness - Extremities Exam Extremities exam: Absent: calf tenderness, edema - Back Exam Back exam: Present: normal inspection - Neurological Exam Neurological exam: Present: alert, oriented X3, CN II-XII intact. Absent: motor sensory deficit - Psychiatric Psychiatric exam: Present: normal affect, normal mood. Absent: agitated, anxious - Skin Skin exam: Present: warm, dry. Absent: erythema, rash Results - Labs CBC & BMP: 04/26/17 04:53 04/26/17 04:53 Lab Results: I have reviewed the past 24 hour labs Specialty Discharge - Follow Up or Referrals Follow up with: Josue Sotelo MD [Physician] - (2-3 WEEKS. )
--- NOTE | 2017-04-26 09:03 | XRay Report ---
XR chest 1V portable Indication: COPD Comparison: Chest x-ray 04/23/2017. Technique: Portable AP chest was performed. Findings: Heart size is borderline. Pulmonary vasculature appears within normal limits. No significant abnormality of the mediastinal contours demonstrated. Lungs are clear. Bones and soft tissues demonstrate no significant abnormalities. Impression: 1. No evidence of acute pathology. 2. Stable borderline cardiomegaly. 04/26/2017 9:00 AM PROCEDURE INTERPRETED AT [facility] DEPARTMENT OF RADIOLOGY Final Report Signed by: Dr. Parker Koehler
--- NOTE | 2017-04-26 10:21 | Cardiology Progress Note ---
Cardiology - PN: Subj Interval history: Cardiology note 26-year-old man with new onset congestive heart failure. Telemetry shows sinus rhythm Blood pressure 114/76 Regular rhythm with gallop Decreased breath sounds but fairly clear Abdomen benign No leg edema impression Cardiomyopathy echo showed ejection fraction of 10% with structurally normal valves and mild TR PA pressure 35 Long history of cocaine drug abuse New-onset congestive heart failure Lab data today Hemoglobin 14.7 hematocrit 43.5 white count 7.3 Sodium 140 potassium 3.5 chloride 105 CO2 24 BUN 14 creatinine 1.0 Plan Lisinopril 2.5 mg twice daily Lasix 80 mg IV twice daily Increase KCl 40 mEq twice daily Carvedilol 3.125 mg twice daily BMP in a.m. Cardiac cath Friday morning Exam (Progress Note) - Constitutional Vitals: Period Temp Pulse Resp BP Sys/Miller Pulse Ox Last 24 Hr 97.3 F-97.7 F 100-113 18-20 96-122/65-80 95-99 Result/EKG - Labs CBC & BMP: 04/26/17 04:53 04/26/17 04:53 Labs: Laboratory Results - last 24 hr 04/26/17 04/26/17 04/26/17 04:53 04:53 04:53 WBC 7.3 RBC 5.00 Hgb 14.7 Hct 43.5 MCV 87.0 MCH 29 MCHC 33.8 RDW 13.6 Plt Count 341 MPV 10.9 Neut % (Auto) 62.3 Lymph % (Auto) 26.2 [place] % (Auto) 6.8 Eos % (Auto) 4.0 Baso % (Auto) 0.4 Neut # (Auto) 4.6 Lymph # (Auto) 1.9 [place] # (Auto) 0.5 Eos # (Auto) 0.3 Baso # (Auto) 0.0 Immature Gran % 0.3 Nucleated RBC % 0.0 Immature Gran # 0.02 Nucleated RBCs # 0.00 Immature Plt Fraction 0.0 Sodium 140 Potassium 3.5 Chloride 105 Carbon Dioxide 24 Anion Gap 14.5 BUN 14 Creatinine 1.00 GFR Calculation 130 BUN/Creatinine Ratio 14.00 Glucose 129 H Calculated Osmolality 281.4 Calcium 9.1 Phosphorus 3.9 Magnesium 2.1 Total Bilirubin 0.90 AST 29 ALT 29 Alkaline Phosphatase 89 B-Natriuretic Peptide 448 H Total Protein 7.3 Albumin 3.5 Globulin 3.8 H Albumin/Globulin Ratio 0.9 L Specialty Discharge - Follow Up or Referrals Follow up with: Josue Sotelo MD [Physician] - (2-3 WEEKS. )
[2017-04-26] MEDS: ENOXAPARIN 40 MG/0.4 ML SYRINGE SUBCUT SCH (21:14)
[2017-04-27 05:49] LABS: Basophils % 0.3 % (0.0-0.8); Eosinophils # 0.2 10*3/uL (0.0-0.87); Eosinophils % 2.9 % (0.00-10.9); Hematocrit 43.3 VOL% (42.0-52.0); Hemoglobin 14.3 GM/DL (14.0-18.0); Immature Granulocytes % 0.5 %; Immature Granulocytes Absolute 0.03 #; Lymphocytes % 31.3 % (21.2-54.2); Mean Corpuscular Hemoglobin 29 PG (27-34); Mean Corpuscular Volume 86.6 FL (87-102); Mean Platelet Volume 10.2 FL (9.6-12.0); Monocytes # 0.5 10*3/uL (0.11-0.8); Neutrophils # 3.7 10*3/uL (1.4-7.4); Platelet Count 353 T/CUMM (130-400); Red Cell Distribution Width 13.4 % (9.3-17.3); White Blood Count 6.5 T/CUMM (4-12)
[2017-04-27 06:19] LABS: Calcium 9.1 MG/DL (8.5-10.1); Magnesium 2.4 MG/DL (1.8-2.4); Osmolality,Calculated 277.5 MOS/KG (273-304); Potassium 3.9 MMOL/L (3.5-5.1)
[2017-04-27] MEDS: FOLIC ACID 1 MG TABLET PO SCH (09:01)
[2017-04-27] MEDS: MULTIVITAMIN (CENTRUM) TABLET PO SCH (09:01)
[2017-04-27] MEDS: ASPIRIN EC 81 MG TABLET PO SCH (09:01)
[2017-04-27] MEDS: LISINOPRIL 2.5 MG TABLET PO SCH ×2 (09:01→21:32)
[2017-04-27] MEDS: PANTOPRAZOLE 40 MG TABLET PO SCH (09:02)
[2017-04-27] MEDS: THIAMINE 100 MG TABLET PO SCH (09:02)
[2017-04-27] MEDS: CARVEDILOL 3.125 MG TABLET PO SCH ×2 (09:02→21:32)
[2017-04-27] MEDS: FUROSEMIDE 40 MG/4 ML VIAL IV SCH ×2 (09:03→15:54)
--- NOTE | 2017-04-27 09:24 | Hospitalist Progress Note ---
Assessment and Plan - Time spent with patient Time spent with patient: Less than 30 minutes (1) Cardiomyopathy Status: Acute Assessment and plan: Patient has cardiomyopathy with ejection fraction of 10% with global hypokinesis on echocardiogram. He is currently being managed medically. Cardiology is following and we will await further recommendations in regards to cardiac cath, LifeVest placement, discharge planning. 04/27/17: Patient is currently well compensated. Have discussed with Dr. Sotelo and plans for cardiac catheterization in the a.m. Current Visit: Yes Hospitalist: Subjective Interval history: Patient has no complaints of chest pain or shortness of breath today. He is ambulatory in the room without complaints. Exam - Constitutional Vitals: Period Temp Pulse Resp BP Sys/Miller Pulse Ox Last 24 Hr 96.2 F-97.5 F 20-114 18-20 111-164/63-83 95-100 General appearance: no acute distress - Head Head exam: Present: normocephalic, atraumatic - Eye Eye exam: Present: EOMI Pupils: Present: CHARLIE - ENT ENT exam: Present: normal exam - Neck Neck exam: Present: normal inspection - Respiratory Respiratory exam: Present: clear to auscultation bilaterally. Absent: rales, rhonchi, wheezes - Cardiovascular Cardiovascular exam: Present: regular rate and rhythm. Absent: systolic murmur , tachycardia - GI/Abdominal GI/Abdominal exam: Present: normal bowel sounds, soft. Absent: mass, tenderness , rebound - Extremities Exam Extremities exam: Absent: calf tenderness, edema - Neurological Exam Neurological exam: Present: alert, oriented X3, CN II-XII intact. Absent: motor sensory deficit - Psychiatric Psychiatric exam: Present: normal affect, normal mood. Absent: agitated, anxious - Skin Skin exam: Present: warm, dry. Absent: erythema, rash Results - Labs CBC & BMP: 04/27/17 04:57 04/27/17 04:57 Lab Results: I have reviewed the past 24 hour labs Specialty Discharge - Follow Up or Referrals Follow up with: Josue Sotelo MD [Physician] - (2-3 WEEKS. )
--- NOTE | 2017-04-27 11:19 | Cardiology Progress Note ---
Cardiology - PN: Subj Interval history: Cardiology note 26-year-old man with new onset congestive heart failure. Long history of cocaine abuse. He has been snorting cocaine for over 10 years. Echo shows ejection fraction of 10% No chest pain or shortness of breath. Telemetry shows sinus rhythm in the 80s and 90s Regular rhythm with S4 gallop Clear lungs Abdomen benign No leg edema Lab data White count 6.5 hemoglobin 14.3 hematocrit 43.3 Sodium 134 potassium 3.9 chloride 105 CO2 25 BUN 15 creatinine 0.80 Magnesium 2.4 glucose 98 Impression Cardiomyopathy EF 10% by echo with structurally normal valves and PA pressure 35 New onset congestive heart failure Long history cocaine abuse Plan Lisinopril 2.5 mg twice daily Lasix 80 mg IV twice daily KCl 40 mEq twice daily Heart cath a.m. procedure, risk benefits discussed a second time. All questions answered. He agrees to proceed. Exam (Progress Note) - Constitutional Vitals: Period Temp Pulse Resp BP Sys/Miller Pulse Ox Last 24 Hr 96.2 F-97.5 F 20-114 18-20 111-164/63-83 95-100 Result/EKG - Labs CBC & BMP: 04/27/17 04:57 04/27/17 04:57 Labs: Laboratory Results - last 24 hr 04/27/17 04/27/17 04:57 04:57 WBC 6.5 RBC 5.00 Hgb 14.3 Hct 43.3 MCV 86.6 L MCH 29 MCHC 33.0 RDW 13.4 Plt Count 353 MPV 10.2 Neut % (Auto) 57.0 Lymph % (Auto) 31.3 [place] % (Auto) 8.0 Eos % (Auto) 2.9 Baso % (Auto) 0.3 Neut # (Auto) 3.7 Lymph # (Auto) 2.0 [place] # (Auto) 0.5 Eos # (Auto) 0.2 Baso # (Auto) 0.0 Immature Gran % 0.5 Nucleated RBC % 0.0 Immature Gran # 0.03 Nucleated RBCs # 0.00 Immature Plt Fraction 0.0 Sodium 139 Potassium 3.9 Chloride 105 Carbon Dioxide 25 Anion Gap 12.9 BUN 15 Creatinine 0.80 GFR Calculation 156 BUN/Creatinine Ratio 18.00 Glucose 98 Calculated Osmolality 277.5 Calcium 9.1 Magnesium 2.4 Specialty Discharge - Follow Up or Referrals Follow up with: Josue Sotelo MD [Physician] - (2-3 WEEKS. )
--- NOTE | 2017-04-27 11:19 | History and Physical Update ---
Sedation H&P Update - History and Physical H&P was reviewed, the patient examined and there: are no changes in the patients condition since last H&P was completed. - Dictation Physical: refer to H&P completed by admitting physician - Physical Exam Mental Status: alert and oriented Heart: regular rate and rhythm Lung: clear to auscultation Abdomen: within normal limits Vitals: within normal limits - Sedation Plan for Sedation: moderate Patient Consent: Procedure disscussed with patient and patinet has consented., Risks and benefits were discussed with patient,including infection,, bleeding, injury to surrounding structures, seizure, temporary nerve, Patient understands and accepts potential risks/benefits and agrees to, proceed. ASA Class: II Airway Assessment: Class II: Soft palate, uvula, fauces visible
[2017-04-27] MEDS ORDERED: MAGNESIUM SULF RIDER 2 GM in PREMIX 1 EACH IV PRN (11:20)
[2017-04-27] MEDS ORDERED: POTASSIUM CHLORIDE RIDER 10 MEQ in PREMIX 1 EACH IV PRN (11:20)
[2017-04-27] MEDS ORDERED: DIAZEPAM 5 MG TABLET PO ONE (11:20)
[2017-04-27] MEDS ORDERED: diphenhydrAMINE CAP 25 MG CAPSULE PO ONE (11:20)
[2017-04-27 11:57] LABS: INR 1.1; PT Patient Result 11.6 SECS
[2017-04-27] MEDS: ENOXAPARIN 40 MG/0.4 ML SYRINGE SUBCUT SCH (21:32)
[2017-04-28 05:08] LABS: Basophils % 0.3 % (0.0-0.8); Eosinophils # 0.2 10*3/uL (0.0-0.87); Eosinophils % 3.2 % (0.00-10.9); Hematocrit 42.8 VOL% (42.0-52.0); Hemoglobin 14.3 GM/DL (14.0-18.0); Immature Granulocytes % 0.3 %; Immature Granulocytes Absolute 0.02 #; Lymphocytes # 2.2 10*3/uL (1.4-4.0); Lymphocytes % 33.4 % (21.2-54.2); Mean Corpuscular HGB Conc 33.4 GM/DL (32-36); Mean Corpuscular Hemoglobin 29 PG (27-34); Monocytes # 0.5 10*3/uL (0.11-0.8); Monocytes % 7.1 % (1.7-12.7); Neutrophils # 3.7 10*3/uL (1.4-7.4); Neutrophils % 55.7 % (38.7-73.9); Platelet Count 339 T/CUMM (130-400); Red Blood Count 4.92 MC/CUMM (3.8-5.5); Red Cell Distribution Width 13.3 % (9.3-17.3); White Blood Count 6.7 T/CUMM (4-12)
[2017-04-28 05:37] LABS: Magnesium 2.4 MG/DL (1.8-2.4); Osmolality,Calculated 275.8 MOS/KG (273-304); Potassium 3.8 MMOL/L (3.5-5.1)
[2017-04-28] MEDS ORDERED: diphenhydrAMINE CAP 25 MG CAPSULE PO ONE (06:00)
[2017-04-28] MEDS ORDERED: DIAZEPAM 5 MG TABLET PO ONE (06:00)
[2017-04-28] MEDS: SODIUM CHLORIDE 0.9% 1,000 ML IV SCH ×2 (06:06→07:19)
[2017-04-28] MEDS: ASPIRIN EC 81 MG TABLET PO SCH (08:52)
[2017-04-28] MEDS: FOLIC ACID 1 MG TABLET PO SCH (08:52)
[2017-04-28] MEDS: FUROSEMIDE 40 MG/4 ML VIAL IV SCH ×2 (08:52→16:18)
[2017-04-28] MEDS: MULTIVITAMIN (CENTRUM) TABLET PO SCH (08:52)
[2017-04-28] MEDS: CARVEDILOL 3.125 MG TABLET PO SCH ×2 (08:52→21:18)
[2017-04-28] MEDS: LISINOPRIL 2.5 MG TABLET PO SCH ×2 (08:53→21:17)
[2017-04-28] MEDS: THIAMINE 100 MG TABLET PO SCH (08:53)
[2017-04-28] MEDS: PANTOPRAZOLE 40 MG TABLET PO SCH (08:53)
[2017-04-28] MEDS ORDERED: HEPARIN/NACL 0.9% 2 UNITS/ML 1,000 ML IV ONE (09:10)
[2017-04-28] MEDS ORDERED: HYDROmorphone 2 MG/1 ML VIAL ONE ×2 (09:10→09:24)
[2017-04-28] MEDS ORDERED: LIDOCAINE 1% 20 ML VIAL ONE (09:10)
[2017-04-28] MEDS ORDERED: MIDAZOLAM 2 MG/2 ML VIAL ONE ×2 (09:11→09:24)
[2017-04-28] MEDS ORDERED: ZALEPLON 5 MG CAPSULE PO PRN (09:55)
--- NOTE | 2017-04-28 09:55 | Cardiac Catheterization ---
Date of Procedure:: 04/28/17 Pre-op Diagnosis: Cardiomyopathy CHF Post-op diagnosis: same Procedure: Cardiac catheterization procedure note #1 left heart catheterization #2 selective coronary angiography #3 left ventriculography Omnipaque was used for the procedure Description of procedure Following sterile preparation draping of the right groin, local anesthesia was achieved by infiltration with 1% Xylocaine. Using a Cook needle the right femoral artery was cannulated and a #6 sheath was inserted. A 6 Hungarian pigtail catheter was introduced and advanced retrograde across aortic valve into the left ventricle and the end-diastolic pressure was recorded. Left ventriculography was performed the WALDROP projection using 24 cc of contrast. A pullback recording made across aortic valve. The pigtail catheter change for a 6 Hungarian left Gary catheter and left coronary angiography was performed in several WALDROP and DANISH projections. The catheter change for a 6 Hungarian right Amplatz catheter and right coronary angiography was performed in the DANISH projection only. The catheter and sheath were then removed and hemostasis was achieved with percutaneous closure of the femoral arch [place] site with a minx closure device with prompt cessation of bleeding and prompt return of femoral and foot pulses. No complications ensued. The patient was transported back to telemetry in stable condition. Hemodynamic data Aortic pressure 88/68 mean of 72 Left ventricle 88/60 Selective coronary angiography Left main trunk is widely patent bifurcates. The LAD is a large vessel wraps around the apex. It is widely patent throughout its course. 3 diagonal branches are patent. The circumflex system is large and normal. The dominant coronary artery is widely patent throughout its course. Left ventriculography The end-systolic and end-diastolic glands are increased. There is severe global hypokinesis. Ejection fraction is 10%. There is no evidence for mitral regurgitation under the conditions of the study. 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 The coronary arteries are widely patent. Medical therapy recommended and a defibrillator will be discussed at the appropriate time. Cine pictures were reviewed with his . Implants: No implants Anesthesia: moderate conscious sedation Surgeon / Physician: Josue Sotelo Estimated blood loss: minimal Specimens: none sent Condition: stable Disposition: floor - Medications / Follow-up Referrals: Josue Sotelo MD [Physician] - (2-3 WEEKS. )
--- NOTE | 2017-04-28 11:48 | Hospitalist Progress Note ---
Assessment and Plan (1) Acute systolic (congestive) heart failure Status: Acute Assessment and plan: ef 10%, heart cath today #1 increased LVEDP 16, #2 ejection fraction 10% with severe global hypokinesis #3 no mitral regurgitation #4 no aortic valve gradient #5 widely patent coronary arteries, cont lasix 80 mg iv bid, needs life vest Current Visit: Yes (2) Polysubstance abuse Status: Chronic Assessment and plan: needs to be substance free for 90 days to get defib Current Visit: Yes (3) Alcohol abuse Status: Chronic Current Visit: Yes (4) KHAI (obstructive sleep apnea) Status: Acute Assessment and plan: apnea episode while I was in the room, Consult Dr. Clancy. Current Visit: Yes Hospitalist: Subjective Interval history: Patient snoring after a cath. Exam - Constitutional Vitals: Period Temp Pulse Resp BP Sys/Miller Pulse Ox Last 24 Hr 96.8 F-97.4 F 86-114 17-20 96-128/61-87 91-98 Exam: Heart Rate-[RRR] Lungs-[crackles GI-[+bs soft, NT] Ext-[1+ edema] Neuro post-cath and very sedated psych cannot evaluate General [mild acute distress due to sleep apnea] Results - Labs CBC & BMP: 04/28/17 04:44 04/28/17 04:44 Lab Results: I have reviewed the past 24 hour labs Quality Measures - VTE Contraindication to Mechanical VTE Prophylaxis: Trauma to Legs Specialty Discharge - Follow Up or Referrals Follow up with: Josue Sotelo MD [Physician] - (2-3 WEEKS. )
--- NOTE | 2017-04-28 16:01 | Sleep Medicine Consult ---
Assessment and Plan (1) Unspecified sleep apnea Status: Acute Assessment and plan: Mr. Wallace has a history of snoring and gasping for breath during sleep. He denies any fatigue or sleepiness throughout the day and has a normal [place] sleepiness score of 3. However, with his significant cardiomyopathy, I recommend further work up with in-house polysomnography to rule out underlying sleep disorders. I discussed obstructive sleep apnea as well as the treatments and testing that are recommended. Both he and his verbalized understanding and wish to be set up for outpatient polysomnography. As he is a resident of [place], this will be scheduled at the [facility] Sleep lab at his earliest convenience. Current Visit: Yes History of Present Illness Chief complaint: R/O sleep apnea History of present illness: Mr. Wallace is a 26 year old male who was admitted through the emergency room with shortness of breath and chest discomfort. On echocardiogram he had a documented ejection fraction of 10%. Earlier today he underwent heart catheterization and had no blockages. He is lightly sedated now and is very difficult to obtain a history from. I woke his who was at his bedside and she does admit that her snores occasionally during sleep. For the past week, he had a frequent nighttime awakenings with shortness of breath and choking sensations. Prior to last week, he had never experienced this. His denies ever seeing her stop breathing during his sleep. He does not have a set sleep schedule and goes to bed when he is sleepy. On average, this is between 2:30-3am and awakens around noon. He feels refreshed most days and does not take daily naps. He is unemployed but maintains an "active lifestyle". He admits to a long history of cocaine, alcohol and tobacco use. He is unaware of any other medical conditions. He has no known family history of sleep disorders. Home Medications Medication Instructions Recorded Confirmed Type No Known Home Medications [No 04/23/17 04/23/17 History Known Home Medications] Allergies Allergy/AdvReac Type Severity Reaction Status Date / Time No Known Allergies Allergy Verified 04/23/17 21:17 - Constitutional Constitutional: Absent: daytime sleepiness, fatigue, night sweats, stops breathing during sleep - EENT Nose, mouth and throat: Absent: headache(s) - Cardiovascular Cardiovascular: Present: dyspnea on exertion, orthopnea. Absent: chest pain at rest, chest pain with activity - Respiratory Respiratory: Present: snoring. Absent: wheezing - Gastrointestinal Gastrointestinal: Absent: abdominal pain, constipation, diarrhea, heartburn - Genitourinary Genitourinary: Absent: urinary frequency - Musculoskeletal Musculoskeletal: Absent: arthralgias, muscle weakness - Neurological Neurological: Absent: behavioral changes, frequent falls, syncope - Psychiatric Psychiatric: Absent: anxiety, depression Exam (Pulmonay) H&P - Constitutional Vitals: Period Temp Pulse Resp BP Sys/Miller Pulse Ox Last 24 Hr 96.3 F-97.4 F 84-114 17-20 94-118/61-87 91-98 General appearance: normal weight - Head Head exam: Present: normocephalic, atraumatic - Eye Pupils: Present: CHARLIE - ENT ENT exam: Present: other (Mallampati class IV) - Expanded ENT Exam ENT Exam Mouth exam: Present: moist Throat exam: Absent: post pharyngeal edema, post pharyngeal erythema - Neck Neck exam: Absent: lymphadenopathy, thyromegaly - Respiratory Respiratory exam: Present: clear to auscultation bilaterally. Absent: rales, rhonchi, wheezes - Cardiovascular Cardiovascular exam: Present: regular rate and rhythm - GI/Abdominal GI/Abdominal exam: Present: normal bowel sounds, soft. Absent: distended, tenderness - Extremities Exam Extremities exam: Present: normal capillary refill. Absent: edema - Neurological Exam Neurological exam: Present: other (sedated but awakens with verbal stimuli) - Psychiatric Psychiatric exam: Present: normal mood. Absent: depressed - Skin Skin exam: Present: warm, dry Medical,Surgical,& Family Hx - Medical History Cardio: No history of: CAD, Hypertension, NV - Surgical History Thoracic Surgeries: Patient denies;: Lobectomy - Social History Smoking Status: Current every day smoker Frequency of Alcohol Use: Frequently Type of Drug Use: Cocaine, Methamphetamine Results - Labs CBC & BMP: 04/28/17 04:44 04/28/17 04:44 Quality Measures - VTE Contraindication to Mechanical VTE Prophylaxis: Trauma to Legs Specialty Discharge - Follow Up or Referrals Follow up with: Josue Sotelo MD [Physician] - (2-3 WEEKS. )
[2017-04-28] MEDS ORDERED: ACETAMINOPHEN 325 MG TABLET PO PRN (18:10)
[2017-04-28] MEDS: ENOXAPARIN 40 MG/0.4 ML SYRINGE SUBCUT SCH (21:18)
[2017-04-29 05:49] LABS: Calcium 8.2 MG/DL (8.5-10.1); Osmolality,Calculated 271.2 MOS/KG (273-304); Potassium 3.8 MMOL/L (3.5-5.1)
[2017-04-29] MEDS: CARVEDILOL 3.125 MG TABLET PO SCH (09:22)
[2017-04-29] MEDS: MULTIVITAMIN (CENTRUM) TABLET PO SCH (09:22)
[2017-04-29] MEDS: PANTOPRAZOLE 40 MG TABLET PO SCH (09:22)
[2017-04-29] MEDS: THIAMINE 100 MG TABLET PO SCH (09:22)
[2017-04-29] MEDS: FOLIC ACID 1 MG TABLET PO SCH (09:22)
[2017-04-29] MEDS: LISINOPRIL 2.5 MG TABLET PO SCH (09:22)
[2017-04-29] MEDS: ASPIRIN EC 81 MG TABLET PO SCH (09:22)
[2017-04-29] MEDS: FUROSEMIDE 40 MG/4 ML VIAL IV SCH (09:25)
--- NOTE | 2017-04-29 11:22 | Discharge Summary ---
Hospital Course - Hospital Course Hospital Course: 26-year-old [place] male with a history of cocaine and EtOH abuse presents to the emergency room with 3 days of shortness of breath. Patient cannot lay down flat and was noted to be in congestive heart failure in the emergency room. Patient has known cardiomyopathy due to cocaine and EtOH abuse. His echocardiogram showed an EF of 10% with global hypokinesis and grade 3 diastolic dysfunction. Patient has been aggressively diuresed with Lasix. Due to his low EF and cardiomyopathy was taken to the [facility]. His EF was confirmed at 10%. No mitral regurg, no aortic gradient, widely patent coronary arteries, increased left ventricle end-diastolic pressure of 16. Patient is agreed to go to [facility] for rehab from drugs and alcohol. Patient snores severely when he sleeps. We have asked Dr. Clancy to see him for a possible outpatient sleep study. Verónica Khanna NP has seen him and agrees that he does need an outpatient sleep study. Patient has acute on chronic systolic and diastolic congestive heart failure exacerbation. His blood pressure is tolerating Coreg and lisinopril at this time. Most important is he needs to follow-up with his sleep study and with Dr. Sotelo and be compliant about staying away from drugs and alcohol. If he remains drug free for now 90 day. They will consider him a candidate for defibrillator. Discharge to [facility] behavioral health. - Time spent with patient Time with patient DS: Greater than 30 minutes (50 min) Diagnosis - Discharge Diagnosis (1) Acute systolic (congestive) heart failure Status: Acute (2) Polysubstance abuse Status: Chronic (3) Alcohol abuse Status: Chronic (4) KHAI (obstructive sleep apnea) Status: Acute Specialty Discharge - Follow Up or Referrals Follow up with: Josue Sotelo MD [Physician] - 05/13/17 12:40 pm (2-3 WEEKS. ) Discharge Plan - Discharge Data Disposition: Disch To Home/Self Care Condition at Discharge: Stable Discharge Diet: heart healthy, low salt diet, other (fluid restriction of 1500 ml daily ) Activity: resume usual activities as tolerated Hygiene: no restrictions Weight Bearing at Discharge: full weight bearing - Discharge Medications New Aspirin EC Tab 81 mg PO DAILY tablet Carvedilol [Coreg] 3.125 mg PO BID #60 tablet Folic Acid Tab 1 mg PO DAILY tablet Furosemide Tab [Lasix Tab] 40 mg PO BID DIURETIC #60 tablet Multivitamin (Centrum) [Centrum Tab] 1 tablet PO DAILY tablet Nicotine 21 mg/24 Hr Patch [Nicoderm CQ 21 mg/24 hr Patch] 1 patch TRANSDERM DAILY #42 patch Thiamine Tab [Vitamin B1 Tab] 100 mg PO DAILY tablet Lisinopril [Prinivil] 2.5 mg PO BID #60 tablet Potassium Chloride Cap/Tab [K Dur] 20 meq PO DAILY #30 tablet - Follow Up or Referral Follow Up: Rochelle Clancy MD [Physician] - 2 Weeks (schedule sleep study ) Josue Sotelo MD [Physician] - 05/13/17 12:40 pm (2-3 WEEKS. ) [facility] [Provider Group] - 2 Weeks - Forms/Instructions Instructions: Left Heart Catheterization (DC), How to Stop Smoking (GEN), Cigarette Smoking and Your Health, Electromedical Equipment Technician (GEN) Additional Discharge Instructions: Patient is agreed to go to [facility] and check in with behavioral health for drug rehab. Patient is to wear his LifeVest at all times. Exam - Constitutional Vitals: Period Temp Pulse Resp BP Sys/Miller Pulse Ox Last 24 Hr 96.3 F-98.3 F 84-112 17-20 94-136/62-80 95-99 General appearance: normal weight, no acute distress - Respiratory Respiratory exam: Present: clear to auscultation bilaterally. Absent: rhonchi, wheezes - Cardiovascular Cardiovascular exam: Present: regular rate and rhythm. Absent: systolic murmur - GI/Abdominal GI/Abdominal exam: Present: normal bowel sounds, soft. Absent: tenderness - Extremities Exam Extremities exam: Present: normal inspection, normal capillary refill - Neurological Exam Neurological exam: Present: alert, oriented X3 - Psychiatric Psychiatric exam: Present: normal affect, normal mood - Skin Skin exam: Present: normal color, warm Discharge Results Labs on day of discharge: Labs from last 24 hours 04/29/17 03:40 Sodium 134 L Potassium 3.8 Chloride 102 Carbon Dioxide 21 Anion Gap 14.8 BUN 18 Creatinine 0.90 GFR Calculation 148 BUN/Creatinine Ratio 20.00 Glucose 128 H Calculated Osmolality 271.2 L Calcium 8.2 L DS: Provider Date of admission: 04/28/17 11:52 Primary care physician: Rafy Biswas MD Attending physician on admission: Nikki Gonzalez MD Consults: 04/23/17 23:48 Consult to Physician [CONS] Routine Comment: newonset sob r/o ME Consulting Provider: Josue Sotelo Consult to Specialist Group: Cardiology When should Consulting Provider be notified: In am 04/25/17 10:15 Consult to Case Mgmt/Social Srvs [CONS] Routine Reason for Case Mgmt/Social Srvs: Other Consult Comment: Needs disability or assistance 04/28/17 09:55 Consult to Cardiac Rehabilitation [CONS] Routine Reason for Cardiac Rehabilitation: Risk Factor Modification 04/28/17 10:25 Consult to Sleep Center [CONS] Routine Reason for Sleep Center: Sleep Center Physician Consult Comment: severe khai 04/28/17 11:54 Consult to Case Mgmt/Social Srvs [CONS] Routine Reason for Case Mgmt/Social Srvs: Other Consult Comment: life vest Discharging clinician: Michelle Goel MD
[2017-04-29 11:33] VITALS: BP 105/67
--- NOTE | 2017-04-29 11:35 | Cardiology Progress Note ---
Assessment and Plan - Time spent with patient Time spent with patient: Greater than 30 minutes Time spent discussing smoking cessation with patient: more than 10 minutes (1) Shortness of breath Status: Resolved Assessment and plan: SEE PLAN OF CARE LISTED BELOW Current Visit: Yes (2) Tobacco use Status: Chronic Assessment and plan: SEE PLAN OF CARE LISTED BELOW Current Visit: Yes (3) Sinus tachycardia Status: Resolved Assessment and plan: SEE PLAN OF CARE LISTED BELOW Current Visit: Yes (4) Congestive heart failure Status: Resolved Assessment and plan: SEE PLAN OF CARE LISTED BELOW Current Visit: Yes Qualifiers: Congestive heart failure type: combined Congestive heart failure chronicity : acute Qualified Code(s): I50.41 - Acute combined systolic (congestive) and diastolic (congestive) heart failure (5) Polysubstance abuse Status: Chronic Assessment and plan: SEE PLAN OF CARE LISTED BELOW Current Visit: Yes (6) Cocaine abuse Status: Chronic Assessment and plan: SEE PLAN OF CARE LISTED BELOW Current Visit: Yes (7) Alcohol abuse Status: Chronic Assessment and plan: SEE PLAN OF CARE LISTED BELOW Current Visit: Yes (8) NICM (nonischemic cardiomyopathy) Status: Chronic Assessment and plan: see plan of care listed below Current Visit: Yes Cardiology - PN: Subj Interval history: SURVEY SU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 Wallace, 26M, had a known history of cardiac disease. Risk factors include : Illicit drug abuse, specifically marijuana and cocaine, alcohol. Tobacco use daily. Patient was received through the ED of [facility] after being transferred from [facility] April 23, 2017. Patient reports over the past 3 days, he has been orthopneic and unable to sleep. Last evening, he became so orthopneic he felt as if he should be evaluated. Denies chest pain but describes a smothering sensation. This is been consistent over the past 3 days. He was found to be cocaine, marijuana and alcohol positive. Normally, patient reports that he is very active and can perform his activities without chest pain, heaviness, tightness or shortness of breath. ProBNP 2699, cardiac biomarkers negative. EKG does not reveal OK. Chest x-ray reveals bilateral hilar prominence which may represent nonspecific lymphadenopathy, consider sarcoidosis. Echocardiogram has been ordered. He has diuresed a significant amount and is feeling much better. Patient has a long-standing history of illicit drug abuse. For the past 10 years, he has smoked cocaine almost daily until the past 1 year when he does this several times a week. Patient acknowledges that he drinks beer frequently and drinks a pint of [place] whiskey at least twice a week. He smokes marijuana most days. Greater than 10 minutes was spent today discussing the need for cessation of all illicit drugs including tobacco products APRIL 25, 2017: Overnight, patient's symptoms of CHF have resolved. He looks very comfortable and denies chest pain, heaviness or tightness, shortness or breath. Echo revealed severe cardiomyopathy, EF 10%, grade 3 diastolic dysfunction, PAP 31 mmHg + RAP. Greater than 45 minutes was spent today discussing the implications of this new diagnosis, treatment and expectations. He is currently on low-dose beta-jacinto, ABEBA inhibitor. Heart rate remains 92 -113 bpm, sinus tachycardia. Will discuss with Dr. Sotelo with continuing current plan versus increasing beta-jacinto dose and holding ABEBA inhibitor. Patient does not have insurance. I will ask hospice case manager to discuss the possibility of short-term disability and possibly long-term disability given the new diagnosis of severe cardiomyopathy. We discussed the possibility of need for ICD in approximately 90 days if his cardiomyopathy does not improve. Of course, patient would need heart catheterization prior to ICD to rule out an obstructive cause however suspect it is related to the illicit drug abuse. However, patient must secure insurance benefits before he becomes a candidate. Also, patient must abstain from all drugs, demonstrate compliance and follow-up outpatient. He tells me he will do "whatever it takes" to demonstrate compliance and improve his health. May be eligible for discharge today as he has improved so much. He will need education regarding CHF teaching, Lasix 20 mg orally daily to take as needed. I will further discuss with Dr. Sotelo and await additional recommendations. APRIL 29, 2017 - underwent elective heart catheterization yesterday, performed by Dr. 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 The coronary arteries are widely patent. Medical therapy recommended and a defibrillator will be discussed at the appropriate time. Cine pictures were reviewed with his . Overnight, patient has done well without chest pain, heaviness or tightness. He is no longer orthopneic. He has been ambulating without difficulty. Right groin is soft, free of hematoma or bruit. Labs are stable as are vital signs. Cardiology standpoint, he is stable for discharge. He has been given his life vest and has been instructed on the importance of wearing. Also, he will be given a 2-3 week follow-up appointment with Dr. Sotelo. Patient will be reevaluated with echocardiogram in approximately 90 months. If his ejection fraction has not improved greater than 30%, he may become a candidate for ICD if he remains sober and free of illicit drugs. Implants: ASSESSMENT/PLAN: 1. SOB - acute CHF. Echocardiogram reveals severe cardiomyopathy. Resolved. 2. ACUTE CHF - secondary to severe systolic and diastolic dysfunction, EF 10%. Initially NYHA Class III on arrival, now Class I - II. Tolerating low-dose ABEBA, betablocker. 3. COCAINE ABUSE - greater than 45 minutes was spent today discussing the merits of cessation of illicit drug use. 4. MARIJUANA ABUSE - greater than 45 minutes was spent today discussing the merits of cessation of illicit drug use. 5. ALCOHOL/TOBACCO ABUSE - greater than 45 minutes was spent today discussing the merits of cessation of alcohol/tobacco use. 6. SINUS TACHYCARDIA - improved. 7. CARDIOMEGALY - continue current plan of care. 8. NICM - EF 10%. Tolerating low-dose beta blockade and ABEBA inhibitor. Lasix 40 mg orally daily and as needed Exam (Progress Note) - Constitutional Vitals: Period Temp Pulse Resp BP Sys/Miller Pulse Ox Last 24 Hr 96.3 F-98.9 F 84-112 17-20 94-136/62-80 95-99 Exam: General: [Appears well with no apparent distress.] [Pleasant and cooperative. ] [Appears comfortable.] HEENT: [PERRL, normocephalic, atraumatic. Mucous membranes moist. No jaundice noted. Conjunctiva moist and clear, sclerae anicteric] Neck: No JVD/HJR, no thyromegaly or lymphadenopathy noted. No carotid bruit appreciated Cardiac: [Regular rate and rhythm noted. No obvious murmur.] Lungs: [Clear to auscultation without accessory muscle use to assist the respiratory pattern.] Not requiring oxygen Abdomen: Soft, bowel sounds normoactive. Nontender and nondistended. No abdominal bruit or thrill noted. No masses noted. Musculoskeletal: No fluid collection. Decreased range of motion is noted. Extremities: Right groin soft, free of hematoma or bruit. No clubbing, cyanosis noted. [ No edema noted.] Upper extremity pulses 2+. Lower extremity pulses 2+. Capillary refill less than 3 seconds. Skin: No unusual lesions or rashes. No skin breakdown appreciated. Neuro: Awake, alert and oriented 3. Moves all extremities well without hemiparesis or paralysis. No essential tremor is appreciated. Result/EKG - Labs CBC & BMP: 04/28/17 04:44 04/29/17 03:40 Lab Results: I have reviewed the past 24 hour labs Labs: Laboratory Results - last 24 hr 04/29/17 03:40 Sodium 134 L Potassium 3.8 Chloride 102 Carbon Dioxide 21 Anion Gap 14.8 BUN 18 Creatinine 0.90 GFR Calculation 148 BUN/Creatinine Ratio 20.00 Glucose 128 H Calculated Osmolality 271.2 L Calcium 8.2 L - EKG EKG results: interpreted by me EKG shows: sinus rhythm Quality Measures - VTE Contraindication to Mechanical VTE Prophylaxis: Trauma to Legs Specialty Discharge - Follow Up or Referrals Follow up with: Josue Sotelo MD [Physician] - 05/13/17 12:40 pm (2-3 WEEKS. )
== END 2017-04-29 13:50 | disposition home or self-care (01) | DRG 287 ==
LOC: N.ED 21:02 → EDBD 21:02 → N.EDINP 21:02 → SUATTDRO 22:32 → N.TELEN 22:53
PROVIDERS: ADMIT Internal Medicine; ATTEND Internal Medicine
PROC: CLCCHCL (ICD-10-PCS; 2017-04-28 10:45)

== ENCOUNTER 2017-08-21 03:01 | Inpatient (IN) ==
[2017-08-21 04:24] LABS: Basophils % 0.4 % (0.0-0.8); Eosinophils # 0.1 10*3/uL (0.0-0.87); Eosinophils % 0.8 % (0.00-10.9); Hematocrit 43.2 VOL% (42.0-52.0); Hemoglobin 14.2 GM/DL (14.0-18.0); Immature Granulocytes % 0.5 %; Immature Granulocytes Absolute 0.04 #; Lymphocytes # 1.8 10*3/uL (1.4-4.0); Lymphocytes % 21.4 % (21.2-54.2); Mean Corpuscular HGB Conc 32.9 GM/DL (32-36); Mean Corpuscular Hemoglobin 26 PG (27-34); Mean Corpuscular Volume 80.3 FL (87-102); Mean Platelet Volume 9.5 FL (9.6-12.0); Monocytes # 0.6 10*3/uL (0.11-0.8); Monocytes % 6.9 % (1.7-12.7); Neutrophils # 5.8 10*3/uL (1.4-7.4); Platelet Count 410 T/CUMM (130-400); Red Blood Count 5.38 MC/CUMM (3.8-5.5); Red Cell Distribution Width 17.4 % (9.3-17.3); White Blood Count 8.3 T/CUMM (4-12)
[2017-08-21 04:45] LABS: Alanine Aminotransferase 17 U/L (16-61); Albumin 3.7 G/DL (3.4-5.0); Alkaline Phosphatase 127 U/L (45-117); Aspartate Amino Transferase 26 U/L (0-37); Blood Urea Nitrogen 20 MG/DL (7-18); Calcium 8.4 MG/DL (8.5-10.1); Glucose 91 MG/DL (74-106); Osmolality,Calculated 270.2 MOS/KG (273-304); Potassium 4.6 MMOL/L (3.5-5.1); Sodium 134 MMOL/L (136-145); Total Protein 7.4 G/DL (6.4-8.3); Troponin I Only < 0.015 NG/ML (0.00-0.045)
[2017-08-21] MEDS ORDERED: ONDANSETRON 4 MG/2 ML VIAL IV PRN (05:02)
[2017-08-21 07:15] LABS: Basophils % 0.4 % (0.0-0.8); Eosinophils % 0.5 % (0.00-10.9); Hematocrit 42.8 VOL% (42.0-52.0); Hemoglobin 13.8 GM/DL (14.0-18.0); Immature Granulocytes % 0.3 %; Immature Granulocytes Absolute 0.02 #; Lymphocytes # 1.7 10*3/uL (1.4-4.0); Lymphocytes % 22.5 % (21.2-54.2); Mean Corpuscular HGB Conc 32.2 GM/DL (32-36); Mean Corpuscular Hemoglobin 26 PG (27-34); Mean Corpuscular Volume 80.6 FL (87-102); Mean Platelet Volume 9.8 FL (9.6-12.0); Monocytes # 0.5 10*3/uL (0.11-0.8); Monocytes % 6.6 % (1.7-12.7); Neutrophils # 5.2 10*3/uL (1.4-7.4); Neutrophils % 69.7 % (38.7-73.9); Platelet Count 435 T/CUMM (130-400); Red Blood Count 5.31 MC/CUMM (3.8-5.5); Red Cell Distribution Width 17.2 % (9.3-17.3); White Blood Count 7.5 T/CUMM (4-12)
[2017-08-21 07:47] LABS: Albumin 3.5 G/DL (3.4-5.0); Bilirubin,Total 1.7 MG/DL (0.2-1.0); Calcium 8.6 MG/DL (8.5-10.1); Potassium 4.2 MMOL/L (3.5-5.1); Total Protein 7.2 G/DL (6.4-8.3)
[2017-08-21] MEDS: LISINOPRIL 2.5 MG TABLET PO SCH ×2 (09:09→21:20)
[2017-08-21] MEDS: CARVEDILOL 3.125 MG TABLET PO SCH ×2 (09:09→17:11)
[2017-08-21] MEDS: THIAMINE 100 MG TABLET PO SCH (09:09)
[2017-08-21] MEDS: MULTIVITAMIN (CENTRUM) TABLET PO SCH (09:09)
[2017-08-21] MEDS: POTASSIUM CHLORIDE 20 MEQ TABLET PO SCH (09:09)
[2017-08-21] MEDS: FOLIC ACID 1 MG TABLET PO SCH (09:09)
[2017-08-21] MEDS: PANTOPRAZOLE 40 MG TABLET PO SCH (09:09)
[2017-08-21] MEDS: NICOTINE 21 MG/24 HR PATCH TRANSDERM SCH (09:10)
[2017-08-21] MEDS: FUROSEMIDE 40 MG/4 ML VIAL IV SCH ×2 (09:11→17:11)
[2017-08-22 05:09] LABS: Basophils % 0.4 % (0.0-0.8); Eosinophils # 0.1 10*3/uL (0.0-0.87); Eosinophils % 0.8 % (0.00-10.9); Hematocrit 38.8 VOL% (42.0-52.0); Hemoglobin 13.1 GM/DL (14.0-18.0); Immature Granulocytes % 0.3 %; Immature Granulocytes Absolute 0.02 #; Lymphocytes % 27.2 % (21.2-54.2); Mean Corpuscular HGB Conc 33.8 GM/DL (32-36); Mean Corpuscular Hemoglobin 27 PG (27-34); Mean Corpuscular Volume 78.7 FL (87-102); Mean Platelet Volume 9.9 FL (9.6-12.0); Monocytes # 0.6 10*3/uL (0.11-0.8); Monocytes % 7.9 % (1.7-12.7); Neutrophils # 4.6 10*3/uL (1.4-7.4); Neutrophils % 63.4 % (38.7-73.9); Platelet Count 406 T/CUMM (130-400); Red Blood Count 4.93 MC/CUMM (3.8-5.5); Red Cell Distribution Width 16.9 % (9.3-17.3); White Blood Count 7.2 T/CUMM (4-12)
[2017-08-22 05:36] LABS: Calcium 8.7 MG/DL (8.5-10.1); Osmolality,Calculated 268.4 MOS/KG (273-304); Potassium 4.1 MMOL/L (3.5-5.1)
[2017-08-22] MEDS: MULTIVITAMIN (CENTRUM) TABLET PO SCH (10:01)
[2017-08-22] MEDS: POTASSIUM CHLORIDE 20 MEQ TABLET PO SCH (10:01)
[2017-08-22] MEDS: FOLIC ACID 1 MG TABLET PO SCH (10:01)
[2017-08-22] MEDS: THIAMINE 100 MG TABLET PO SCH (10:01)
[2017-08-22] MEDS: CARVEDILOL 3.125 MG TABLET PO SCH (10:01)
[2017-08-22] MEDS: PANTOPRAZOLE 40 MG TABLET PO SCH (10:02)
[2017-08-22] MEDS: LISINOPRIL 2.5 MG TABLET PO SCH (10:02)
[2017-08-22] MEDS: NICOTINE 21 MG/24 HR PATCH TRANSDERM SCH (10:02)
[2017-08-22] MEDS: FUROSEMIDE 40 MG/4 ML VIAL IV SCH (10:03)
[2017-08-22 11:46] VITALS: BP 113/70
== END 2017-08-22 16:00 | disposition home or self-care (01) | DRG 432 ==
LOC: N.ED 03:01 → N.EDINP 05:02 → N.TELES 05:42

== ENCOUNTER 2017-09-06 12:12 | Observation (INO) ==
[2017-09-06 13:22] LABS: Basophils % 0.4 % (0.0-0.8); Eosinophils # 0.1 10*3/uL (0.0-0.87); Eosinophils % 0.8 % (0.00-10.9); Hematocrit 42.1 VOL% (42.0-52.0); Hemoglobin 14.2 GM/DL (14.0-18.0); Immature Granulocytes % 0.3 %; Immature Granulocytes Absolute 0.02 #; Lymphocytes # 1.5 10*3/uL (1.4-4.0); Lymphocytes % 20.8 % (21.2-54.2); Mean Corpuscular HGB Conc 33.7 GM/DL (32-36); Mean Corpuscular Hemoglobin 26 PG (27-34); Mean Corpuscular Volume 77.7 FL (87-102); Mean Platelet Volume 9.4 FL (9.6-12.0); Monocytes # 0.5 10*3/uL (0.11-0.8); Monocytes % 6.2 % (1.7-12.7); Neutrophils # 5.3 10*3/uL (1.4-7.4); Neutrophils % 71.5 % (38.7-73.9); Platelet Count 400 T/CUMM (130-400); Red Blood Count 5.42 MC/CUMM (3.8-5.5); Red Cell Distribution Width 16.6 % (9.3-17.3); White Blood Count 7.4 T/CUMM (4-12)
[2017-09-06 13:36] LABS: Albumin 3.2 G/DL (3.4-5.0); Bilirubin,Total 1.5 MG/DL (0.2-1.0); Calcium 8.2 MG/DL (8.5-10.1); Total Protein 7.4 G/DL (6.4-8.3)
[2017-09-06 13:37] LABS: Osmolality,Calculated 266.2 MOS/KG (273-304); Potassium 3.5 MMOL/L (3.5-5.1)
[2017-09-06 14:13] LABS: Lactic Acid 1.9 MMOL/L (0.4-2.0)
[2017-09-06] MEDS: PANTOPRAZOLE 40 MG TABLET PO SCH (17:50)
[2017-09-06] MEDS: MORPHINE 2 MG/1 ML SYRINGE IV PRN (21:01)
[2017-09-06] MEDS: CARVEDILOL 3.125 MG TABLET PO SCH (21:02)
[2017-09-06] MEDS: FUROSEMIDE 40 MG/4 ML VIAL IV SCH (21:02)
[2017-09-06] MEDS: LISINOPRIL 2.5 MG TABLET PO SCH (21:02)
[2017-09-07] MEDS: MORPHINE 2 MG/1 ML SYRINGE IV PRN ×3 (00:54→19:32)
[2017-09-07 02:51] LABS: Basophils % 0.3 % (0.0-0.8); Eosinophils # 0.1 10*3/uL (0.0-0.87); Eosinophils % 1.1 % (0.00-10.9); Hematocrit 38.6 VOL% (42.0-52.0); Hemoglobin 12.9 GM/DL (14.0-18.0); Immature Granulocytes % 0.3 %; Immature Granulocytes Absolute 0.02 #; Lymphocytes # 1.8 10*3/uL (1.4-4.0); Mean Corpuscular HGB Conc 33.4 GM/DL (32-36); Mean Corpuscular Hemoglobin 26 PG (27-34); Mean Platelet Volume 9.9 FL (9.6-12.0); Monocytes # 0.4 10*3/uL (0.11-0.8); Monocytes % 6.3 % (1.7-12.7); Platelet Count 371 T/CUMM (130-400); Red Blood Count 4.95 MC/CUMM (3.8-5.5); Red Cell Distribution Width 16.7 % (9.3-17.3); White Blood Count 6.2 T/CUMM (4-12)
[2017-09-07 03:05] LABS: Albumin 2.9 G/DL (3.4-5.0); Bilirubin,Total 1.2 MG/DL (0.2-1.0); Calcium 8.5 MG/DL (8.5-10.1); Magnesium 1.7 MG/DL (1.8-2.4); Osmolality,Calculated 268.2 MOS/KG (273-304); Potassium 3.5 MMOL/L (3.5-5.1); Total Protein 6.5 G/DL (6.4-8.3)
[2017-09-07] MEDS ORDERED: POTASSIUM CHLORIDE 20 MEQ TABLET PO SCH (09:00)
[2017-09-07] MEDS: LISINOPRIL 2.5 MG TABLET PO SCH ×2 (09:36→21:06)
[2017-09-07] MEDS: CARVEDILOL 3.125 MG TABLET PO SCH ×2 (09:36→17:35)
[2017-09-07] MEDS: FUROSEMIDE 40 MG/4 ML VIAL IV SCH ×2 (09:36→21:05)
[2017-09-07] MEDS: MULTIVITAMIN (CENTRUM) TABLET PO SCH (09:36)
[2017-09-07] MEDS: PANTOPRAZOLE 40 MG TABLET PO SCH (09:37)
[2017-09-07] MEDS: ASPIRIN EC 81 MG TABLET PO SCH (09:37)
[2017-09-07] MEDS: diphenhydrAMINE 50 MG/1 ML VIAL IV PRN (19:32)
[2017-09-08 05:45] LABS: Basophils % 0.3 % (0.0-0.8); Eosinophils # 0.1 10*3/uL (0.0-0.87); Eosinophils % 1.3 % (0.00-10.9); Hematocrit 40.4 VOL% (42.0-52.0); Hemoglobin 13.7 GM/DL (14.0-18.0); Immature Granulocytes % 0.6 %; Immature Granulocytes Absolute 0.04 #; Lymphocytes # 1.5 10*3/uL (1.4-4.0); Lymphocytes % 24.4 % (21.2-54.2); Mean Corpuscular HGB Conc 33.9 GM/DL (32-36); Mean Corpuscular Hemoglobin 26 PG (27-34); Mean Corpuscular Volume 77.8 FL (87-102); Mean Platelet Volume 9.7 FL (9.6-12.0); Monocytes # 0.4 10*3/uL (0.11-0.8); Monocytes % 6.2 % (1.7-12.7); Neutrophils # 4.3 10*3/uL (1.4-7.4); Neutrophils % 67.2 % (38.7-73.9); Platelet Count 332 T/CUMM (130-400); Red Blood Count 5.19 MC/CUMM (3.8-5.5); White Blood Count 6.3 T/CUMM (4-12)
[2017-09-08 06:11] LABS: Calcium 8.8 MG/DL (8.5-10.1); Osmolality,Calculated 266.2 MOS/KG (273-304); Potassium 3.8 MMOL/L (3.5-5.1)
[2017-09-08] MEDS: LISINOPRIL 2.5 MG TABLET PO SCH ×2 (08:59→21:30)
[2017-09-08] MEDS: ASPIRIN EC 81 MG TABLET PO SCH (08:59)
[2017-09-08] MEDS: MULTIVITAMIN (CENTRUM) TABLET PO SCH (09:00)
[2017-09-08] MEDS: PANTOPRAZOLE 40 MG TABLET PO SCH (09:00)
[2017-09-08] MEDS: CARVEDILOL 3.125 MG TABLET PO SCH ×2 (09:00→17:27)
[2017-09-08] MEDS: FUROSEMIDE 40 MG/4 ML VIAL IV SCH ×2 (09:00→21:30)
[2017-09-08] MEDS: SPIRONOLACTONE 25 MG TABLET PO SCH (09:00)
[2017-09-08] MEDS: KETOROLAC 15 MG/1 ML VIAL IV PRN ×3 (11:18→23:47)
[2017-09-08] MEDS: diphenhydrAMINE 50 MG/1 ML VIAL IV PRN (11:18)
[2017-09-08 14:15] LABS: HIV Antigen/Antibody Result Nonreactive (Nonreactive); Hepatitis A Ab IgM Quant 0.16 Index; Hepatitis A Ab IgM Result Negative (Negative); Hepatitis B Core IgM Result Negative (Negative); Hepatitis B Surface Ag Quant < 0.10 Index; Hepatitis B Surface Ag Result Negative (Negative); Hepatitis C Virus Ab Quant 0.05 Index; Hepatitis C Virus Ab Result Negative (Negative)
[2017-09-09 05:56] LABS: Basophils % 0.3 % (0.0-0.8); Eosinophils # 0.1 10*3/uL (0.0-0.87); Eosinophils % 2.1 % (0.00-10.9); Hematocrit 39.7 VOL% (42.0-52.0); Hemoglobin 13.4 GM/DL (14.0-18.0); Immature Granulocytes % 0.3 %; Immature Granulocytes Absolute 0.02 #; Lymphocytes # 1.3 10*3/uL (1.4-4.0); Lymphocytes % 21.7 % (21.2-54.2); Mean Corpuscular HGB Conc 33.8 GM/DL (32-36); Mean Corpuscular Hemoglobin 27 PG (27-34); Mean Corpuscular Volume 78.6 FL (87-102); Mean Platelet Volume 9.7 FL (9.6-12.0); Monocytes # 0.4 10*3/uL (0.11-0.8); Monocytes % 6.2 % (1.7-12.7); Neutrophils # 4.3 10*3/uL (1.4-7.4); Neutrophils % 69.4 % (38.7-73.9); Platelet Count 317 T/CUMM (130-400); Red Blood Count 5.05 MC/CUMM (3.8-5.5); Red Cell Distribution Width 17.4 % (9.3-17.3); White Blood Count 6.1 T/CUMM (4-12)
[2017-09-09 06:21] LABS: Calcium 8.3 MG/DL (8.5-10.1); Osmolality,Calculated 273.8 MOS/KG (273-304); Potassium 3.1 MMOL/L (3.5-5.1)
[2017-09-09] MEDS ORDERED: POTASSIUM CHLORIDE 20 MEQ TABLET PO STA (07:29)
[2017-09-09 07:33] VITALS: BP 108/68
[2017-09-09] MEDS: FUROSEMIDE 40 MG/4 ML VIAL IV SCH (09:12)
[2017-09-09] MEDS: PANTOPRAZOLE 40 MG TABLET PO SCH (09:13)
[2017-09-09] MEDS: CARVEDILOL 3.125 MG TABLET PO SCH (09:13)
[2017-09-09] MEDS: ASPIRIN EC 81 MG TABLET PO SCH (09:13)
[2017-09-09] MEDS: MULTIVITAMIN (CENTRUM) TABLET PO SCH (09:13)
[2017-09-09] MEDS: SPIRONOLACTONE 25 MG TABLET PO SCH (09:13)
[2017-09-09] MEDS: LISINOPRIL 2.5 MG TABLET PO SCH (09:13)
== END 2017-09-09 10:11 | disposition home or self-care (01) ==
LOC: N.ED 12:12 → N.EDINP 12:12 → N.5E 17:15

== ENCOUNTER 2017-11-22 03:14 | Inpatient (IN) ==
[2017-11-22] MEDS ORDERED: INFLUENZA VIRUS VACCINE 0.5 ML SYRINGE IM ONE (06:13)
[2017-11-22] MEDS ORDERED: PNEUMOCOCCAL VACCINE (23 VALENT) 0.5 ML VIAL IM ONE (06:15)
[2017-11-22] MEDS ORDERED: DOCUSATE SODIUM 100 MG CAPSULE PO PRN (08:39)
[2017-11-22] MEDS ORDERED: diphenhydrAMINE CAP 25 MG CAPSULE PO PRN (08:39)
[2017-11-22] MEDS ORDERED: ACETAMINOPHEN 325 MG TABLET PO PRN (08:39)
[2017-11-22] MEDS ORDERED: MORPHINE 2 MG/1 ML SYRINGE IV PRN (08:39)
[2017-11-22] MEDS ORDERED: ONDANSETRON 4 MG/2 ML VIAL IV PRN (08:39)
[2017-11-22] MEDS ORDERED: NICOTINE 21 MG/24 HR PATCH TRANSDERM PRN (08:39)
[2017-11-22] MEDS ORDERED: LORazepam 2 MG/1 ML VIAL IV PRN (08:59)
[2017-11-22 09:01] LABS: Basophils % 0.2 % (0.0-0.8); Eosinophils % 0.2 % (0.00-10.9); Hematocrit 42.8 VOL% (42.0-52.0); Hemoglobin 14.1 GM/DL (14.0-18.0); Immature Granulocytes % 0.2 %; Immature Granulocytes Absolute 0.02 #; Lymphocytes # 1.2 10*3/uL (1.4-4.0); Lymphocytes % 14.7 % (21.2-54.2); Mean Corpuscular HGB Conc 32.9 GM/DL (32-36); Mean Corpuscular Hemoglobin 28 PG (27-34); Mean Corpuscular Volume 84.1 FL (87-102); Mean Platelet Volume 9.5 FL (9.6-12.0); Monocytes # 0.9 10*3/uL (0.11-0.8); Monocytes % 10.2 % (1.7-12.7); Neutrophils # 6.3 10*3/uL (1.4-7.4); Neutrophils % 74.5 % (38.7-73.9); Platelet Count 339 T/CUMM (130-400); Red Blood Count 5.09 MC/CUMM (3.8-5.5); Red Cell Distribution Width 19.3 % (9.3-17.3); White Blood Count 8.4 T/CUMM (4-12)
[2017-11-22 09:35] LABS: Alanine Aminotransferase 17 U/L (16-61); Alkaline Phosphatase 132 U/L (45-117); Aspartate Amino Transferase 20 U/L (0-37); Blood Urea Nitrogen 21 MG/DL (7-18); Calcium 9.8 MG/DL (8.5-10.1); Glucose 99 MG/DL (74-106); Osmolality,Calculated 268.4 MOS/KG (273-304); Potassium 4.1 MMOL/L (3.5-5.1); Sodium 133 MMOL/L (136-145); Total Protein 9.2 G/DL (6.4-8.3); Troponin I Only < 0.015 NG/ML (0.00-0.045)
[2017-11-22] MEDS: PANTOPRAZOLE 40 MG TABLET PO SCH (09:53)
[2017-11-22] MEDS: ENOXAPARIN 40 MG/0.4 ML SYRINGE SUBCUT SCH (09:53)
[2017-11-22] MEDS: THIAMINE INJ 100 MG, FOLIC ACID INJ 1 MG, MULTIVITAMIN INJ 10 ML in SODIUM CHLORIDE 0.9... IV SCH (13:28)
[2017-11-22] MEDS: FUROSEMIDE 40 MG/4 ML VIAL IV SCH (16:32)
[2017-11-22] MEDS: ACETAMINOPHEN 325 MG TABLET PO PRN (19:29)
[2017-11-23] MEDS: ACETAMINOPHEN 325 MG TABLET PO PRN (06:21)
[2017-11-23 07:48] VITALS: BP 139/84
[2017-11-23] MEDS: FUROSEMIDE 40 MG/4 ML VIAL IV SCH (09:23)
[2017-11-23] MEDS: THIAMINE INJ 100 MG, FOLIC ACID INJ 1 MG, MULTIVITAMIN INJ 10 ML in SODIUM CHLORIDE 0.9... IV SCH (09:24)
[2017-11-23] MEDS: PANTOPRAZOLE 40 MG TABLET PO SCH (09:26)
[2017-11-23] MEDS: ENOXAPARIN 40 MG/0.4 ML SYRINGE SUBCUT SCH (09:26)
[2017-11-23] MEDS ORDERED: CARVEDILOL 6.25 MG TABLET PO SCH (09:30)
[2017-11-23] MEDS ORDERED: LOSARTAN 25 MG TABLET PO SCH (09:30)
[2017-11-24] MEDS ORDERED: SPIRONOLACTONE 25 MG TABLET PO SCH (09:00)
== END 2017-11-23 12:01 | disposition home or self-care (01) | DRG 313 ==
LOC: SUATTDRO 04:58 → N.TELEN 04:58
PROVIDERS: ADMIT Internal Medicine; ATTEND Hospitalist

== ENCOUNTER 2018-10-12 18:54 | Inpatient (IN) ==
[2018-10-12] MEDS ORDERED: ONDANSETRON 4 MG/2 ML VIAL IV STA ×2 (19:16→20:56)
[2018-10-12 19:42] LABS: Basophils % 0.6 % (0.0-0.8); Eosinophils % 0.6 % (0.00-10.9); Hematocrit 38.1 VOL% (42.0-52.0); Hemoglobin 11.8 GM/DL (14.0-18.0); Immature Granulocytes % 0.4 %; Immature Granulocytes Absolute 0.02 #; Lymphocytes # 1.2 10*3/uL (1.4-4.0); Lymphocytes % 23.7 % (21.2-54.2); Mean Corpuscular Hemoglobin 24 PG (27-34); Mean Platelet Volume 9.5 FL (9.6-12.0); Monocytes # 0.6 10*3/uL (0.11-0.8); Monocytes % 11.2 % (1.7-12.7); Neutrophils # 3.2 10*3/uL (1.4-7.4); Neutrophils % 63.5 % (38.7-73.9); Platelet Count 358 T/CUMM (130-400); Red Blood Count 4.95 MC/CUMM (3.8-5.5); Red Cell Distribution Width 17.2 % (9.3-17.3)
[2018-10-12 20:14] LABS: Albumin 3.4 G/DL (3.4-5.0); Bilirubin,Total 2.4 MG/DL (0.2-1.0); Calcium 8.9 MG/DL (8.5-10.1); Potassium 3.9 MMOL/L (3.5-5.1); Total Protein 7.4 G/DL (6.4-8.3)
[2018-10-12] MEDS ORDERED: HYDROmorphone 2 MG/1 ML VIAL ONE (20:53)
[2018-10-12] MEDS ORDERED: HYDROmorphone 2 MG/1 ML VIAL IV ONE (20:56)
[2018-10-12 21:31] LABS: Amorphous Crystals,Urine Occasional /HPF (Few); Apearance,Urine CLOUDY (Clear); Bilirubin,Urine Negative (Negative); Blood, Urine Negative (Negative); Glucose,Urine (UA) Negative (Negative); Ketones,Urine Negative (Negative); Nitrite,Urine Negative (Negative); Protein,Urine Negative; Urine Color Amber (Yellow); Urine Specific Gravity 1.025 (1.001-1.035)
[2018-10-12] MEDS ORDERED: diphenhydrAMINE 50 MG/1 ML VIAL IM STA (22:05)
[2018-10-12] MEDS ORDERED: diphenhydrAMINE 50 MG/1 ML VIAL ONE (22:13)
[2018-10-12] MEDS ORDERED: PROMETHAZINE 25 MG/1 ML VIAL IM PRN (23:02)
[2018-10-12 23:56] LABS: % Iron Saturation 6.5 % (18-50)
[2018-10-13 00:01] LABS: Ferritin 24.1 ng/ml (26-388)
[2018-10-13] MEDS: HYDROmorphone 2 MG/1 ML VIAL IV PRN ×3 (00:52→11:22)
[2018-10-13] MEDS: ONDANSETRON 4 MG/2 ML VIAL IV PRN ×2 (00:52→04:54)
[2018-10-13] MEDS: PIPERACILLIN/TAZOBACTAM 3,375 MG in SODIUM CHLORIDE 0.9% 100 ML IV SCH ×4 (00:53→23:10)
[2018-10-13 04:20] LABS: Basophils % 0.8 % (0.0-0.8); Eosinophils # 0.1 10*3/uL (0.0-0.87); Eosinophils % 1.6 % (0.00-10.9); Hemoglobin 12.1 GM/DL (14.0-18.0); Immature Granulocytes % 0.2 %; Immature Granulocytes Absolute 0.01 #; Lymphocytes % 20.6 % (21.2-54.2); Mean Corpuscular HGB Conc 30.3 GM/DL (32-36); Mean Corpuscular Hemoglobin 24 PG (27-34); Mean Corpuscular Volume 79.1 FL (87-102); Mean Platelet Volume 9.7 FL (9.6-12.0); Monocytes # 0.6 10*3/uL (0.11-0.8); Monocytes % 11.3 % (1.7-12.7); Neutrophils # 3.2 10*3/uL (1.4-7.4); Neutrophils % 65.5 % (38.7-73.9); Platelet Count 352 T/CUMM (130-400); Red Blood Count 5.06 MC/CUMM (3.8-5.5); Red Cell Distribution Width 17.3 % (9.3-17.3); White Blood Count 4.9 T/CUMM (4-12)
[2018-10-13 04:25] LABS: Basophils % 0.6 % (0.0-0.8); Eosinophils # 0.1 10*3/uL (0.0-0.87); Eosinophils % 1.8 % (0.00-10.9); Hematocrit 39.4 VOL% (42.0-52.0); Hemoglobin 12.2 GM/DL (14.0-18.0); Immature Granulocytes % 0.4 %; Immature Granulocytes Absolute 0.02 #; Lymphocytes % 20.6 % (21.2-54.2); Mean Corpuscular Hemoglobin 24 PG (27-34); Mean Corpuscular Volume 78.6 FL (87-102); Mean Platelet Volume 9.9 FL (9.6-12.0); Monocytes # 0.6 10*3/uL (0.11-0.8); Monocytes % 11.5 % (1.7-12.7); Neutrophils # 3.2 10*3/uL (1.4-7.4); Neutrophils % 65.1 % (38.7-73.9); Platelet Count 355 T/CUMM (130-400); Red Blood Count 5.01 MC/CUMM (3.8-5.5); Red Cell Distribution Width 17.4 % (9.3-17.3)
[2018-10-13 04:27] LABS: INR 1.4; PT Patient Result 15.2 SECS
[2018-10-13 05:01] LABS: Calcium 8.8 MG/DL (8.5-10.1); Osmolality,Calculated 271.8 MOS/KG (273-304); Potassium 3.7 MMOL/L (3.5-5.1)
[2018-10-13 05:27] LABS: Sedimentation Rate-Westergren 2 MM/HR (0-15)
[2018-10-13 06:25] LABS: Vitamin B12 1017 PG/ML (211-911)
[2018-10-13 09:48] LABS: Hemoglobin A1 (Alkaline) 97.8 % (96.5-98.5); Hemoglobin A2 (Alkaline) 2.2 % (1.5-3.5)
[2018-10-13 13:46] LABS: Barbiturates Screen,Urine Negative (Negative); Benzodiazepines Screen,Urine Negative (Negative); Cannabinoid Screen,Urine Negative (Negative); Opiate Screen,Urine Positive (Negative); Phencyclidine Screen,Urine Negative (Negative)
[2018-10-13] MEDS: LOSARTAN 25 MG TABLET PO SCH (18:27)
[2018-10-13] MEDS: CARVEDILOL 3.125 MG TABLET PO SCH (20:10)
[2018-10-13] MEDS: diphenhydrAMINE CAP 25 MG CAPSULE PO PRN (20:20)
[2018-10-13] MEDS: VANCOMYCIN INJ 1,500 MG in SODIUM CHLORIDE 0.9% 500 ML IV SCH (20:34)
[2018-10-14] MEDS: VANCOMYCIN INJ 1,500 MG in SODIUM CHLORIDE 0.9% 500 ML IV SCH ×2 (03:16→11:28)
[2018-10-14 04:54] LABS: Basophils % 0.3 % (0.0-0.8); Eosinophils # 0.1 10*3/uL (0.0-0.87); Eosinophils % 1.2 % (0.00-10.9); Hematocrit 36.1 VOL% (42.0-52.0); Hemoglobin 11.1 GM/DL (14.0-18.0); Immature Granulocytes % 0.3 %; Immature Granulocytes Absolute 0.02 #; Lymphocytes # 0.6 10*3/uL (1.4-4.0); Lymphocytes % 9.9 % (21.2-54.2); Mean Corpuscular HGB Conc 30.7 GM/DL (32-36); Mean Corpuscular Hemoglobin 24 PG (27-34); Mean Platelet Volume 9.9 FL (9.6-12.0); Monocytes # 0.9 10*3/uL (0.11-0.8); Monocytes % 14.2 % (1.7-12.7); Neutrophils # 4.4 10*3/uL (1.4-7.4); Neutrophils % 74.1 % (38.7-73.9); Platelet Count 304 T/CUMM (130-400); Red Blood Count 4.63 MC/CUMM (3.8-5.5); Red Cell Distribution Width 17.2 % (9.3-17.3)
[2018-10-14 05:15] LABS: Calcium 8.4 MG/DL (8.5-10.1); Potassium 3.5 MMOL/L (3.5-5.1)
[2018-10-14 05:17] LABS: Calcium 8.6 MG/DL (8.5-10.1); Osmolality,Calculated 270.1 MOS/KG (273-304); Potassium 3.5 MMOL/L (3.5-5.1)
[2018-10-14] MEDS ORDERED: POTASSIUM CHLORIDE 20 MEQ TABLET PO ONE (07:43)
[2018-10-14] MEDS: PIPERACILLIN/TAZOBACTAM 3,375 MG in SODIUM CHLORIDE 0.9% 100 ML IV SCH ×2 (07:57→16:13)
[2018-10-14] MEDS: CARVEDILOL 3.125 MG TABLET PO SCH ×2 (08:58→20:12)
[2018-10-14] MEDS: LOSARTAN 25 MG TABLET PO SCH (08:58)
[2018-10-14] MEDS ORDERED: FUROSEMIDE 40 MG TABLET PO SCH (09:05)
[2018-10-14] MEDS: SPIRONOLACTONE 25 MG TABLET PO SCH (09:57)
[2018-10-14] MEDS ORDERED: SPIRONOLACTONE 25 MG TABLET PO SCH (10:00)
[2018-10-14 11:57] LABS: HIV Antigen/Antibody Result Nonreactive (Nonreactive)
[2018-10-14] MEDS: HYDROmorphone 2 MG/1 ML VIAL IV PRN (20:12)
[2018-10-14] MEDS: diphenhydrAMINE CAP 25 MG CAPSULE PO PRN (21:44)
[2018-10-15] MEDS: HYDROmorphone 2 MG/1 ML VIAL IV PRN ×3 (00:05→21:04)
[2018-10-15] MEDS: PIPERACILLIN/TAZOBACTAM 3,375 MG in SODIUM CHLORIDE 0.9% 100 ML IV SCH ×4 (00:09→23:14)
[2018-10-15 05:17] LABS: Basophils % 0.6 % (0.0-0.8); Eosinophils # 0.1 10*3/uL (0.0-0.87); Eosinophils % 2.6 % (0.00-10.9); Hematocrit 38.9 VOL% (42.0-52.0); Hemoglobin 11.8 GM/DL (14.0-18.0); Immature Granulocytes % 0.2 %; Immature Granulocytes Absolute 0.01 #; Lymphocytes # 0.9 10*3/uL (1.4-4.0); Lymphocytes % 18.6 % (21.2-54.2); Mean Corpuscular HGB Conc 30.3 GM/DL (32-36); Mean Corpuscular Hemoglobin 24 PG (27-34); Mean Platelet Volume 9.9 FL (9.6-12.0); Monocytes # 0.6 10*3/uL (0.11-0.8); Monocytes % 12.4 % (1.7-12.7); Neutrophils # 3.1 10*3/uL (1.4-7.4); Neutrophils % 65.6 % (38.7-73.9); Platelet Count 330 T/CUMM (130-400); Red Blood Count 4.99 MC/CUMM (3.8-5.5); Red Cell Distribution Width 17.7 % (9.3-17.3); White Blood Count 4.7 T/CUMM (4-12)
[2018-10-15 05:46] LABS: Calcium 8.6 MG/DL (8.5-10.1); Osmolality,Calculated 270.1 MOS/KG (273-304); Potassium 3.3 MMOL/L (3.5-5.1)
[2018-10-15] MEDS: diphenhydrAMINE CAP 25 MG CAPSULE PO PRN (06:20)
[2018-10-15] MEDS: FUROSEMIDE 40 MG TABLET PO SCH (08:43)
[2018-10-15] MEDS: CARVEDILOL 3.125 MG TABLET PO SCH ×2 (08:44→21:07)
[2018-10-15] MEDS: SPIRONOLACTONE 25 MG TABLET PO SCH (08:44)
[2018-10-15] MEDS: ASPIRIN EC 81 MG TABLET PO SCH (08:44)
[2018-10-15] MEDS ORDERED: POTASSIUM CHLORIDE 10 MEQ TABLET PO SCH (09:00)
[2018-10-15] MEDS: POTASSIUM CHLORIDE 20 MEQ TABLET PO SCH (10:30)
[2018-10-15] MEDS: DIGOXIN 0.125 MG TABLET PO SCH ×2 (13:30→16:12)
[2018-10-15] MEDS ORDERED: DIAZEPAM 5 MG TABLET PO ONE (14:27)
[2018-10-16] MEDS: HYDROmorphone 2 MG/1 ML VIAL IV PRN ×4 (02:05→16:29)
[2018-10-16 05:25] LABS: Basophils % 0.4 % (0.0-0.8); Eosinophils # 0.1 10*3/uL (0.0-0.87); Eosinophils % 1.8 % (0.00-10.9); Hematocrit 39.2 VOL% (42.0-52.0); Hemoglobin 11.8 GM/DL (14.0-18.0); Immature Granulocytes % 0.2 %; Immature Granulocytes Absolute 0.01 #; Lymphocytes % 21.2 % (21.2-54.2); Mean Corpuscular HGB Conc 30.1 GM/DL (32-36); Mean Corpuscular Hemoglobin 24 PG (27-34); Mean Corpuscular Volume 78.1 FL (87-102); Mean Platelet Volume 10.1 FL (9.6-12.0); Monocytes # 0.6 10*3/uL (0.11-0.8); Monocytes % 12.2 % (1.7-12.7); Neutrophils # 3.2 10*3/uL (1.4-7.4); Neutrophils % 64.2 % (38.7-73.9); Platelet Count 334 T/CUMM (130-400); Red Blood Count 5.02 MC/CUMM (3.8-5.5); Red Cell Distribution Width 17.8 % (9.3-17.3); White Blood Count 4.9 T/CUMM (4-12)
[2018-10-16 05:40] LABS: Osmolality,Calculated 267.2 MOS/KG (273-304); Potassium 3.3 MMOL/L (3.5-5.1)
[2018-10-16] MEDS: PIPERACILLIN/TAZOBACTAM 3,375 MG in SODIUM CHLORIDE 0.9% 100 ML IV SCH ×2 (08:10→16:29)
[2018-10-16] MEDS: POTASSIUM CHLORIDE 20 MEQ TABLET PO SCH (08:11)
[2018-10-16] MEDS: CARVEDILOL 3.125 MG TABLET PO SCH (08:11)
[2018-10-16] MEDS: ASPIRIN EC 81 MG TABLET PO SCH (08:11)
[2018-10-16] MEDS: SPIRONOLACTONE 25 MG TABLET PO SCH (08:11)
[2018-10-16] MEDS: FUROSEMIDE 40 MG TABLET PO SCH (08:11)
[2018-10-16] MEDS ORDERED: POTASSIUM CHLORIDE 20 MEQ TABLET PO ONE (09:43)
[2018-10-16] MEDS: DIGOXIN 0.125 MG TABLET PO SCH ×2 (13:00→13:08)
[2018-10-16] MEDS ORDERED: FUROSEMIDE 40 MG/4 ML VIAL IV ONE (16:00)
[2018-10-16 16:34] VITALS: BP 109/78
[2018-10-16] MEDS ORDERED: metroNIDAZOLE 500 MG TABLET PO SCH (21:00)
[2018-10-17] MEDS ORDERED: LEVOFLOXACIN 500 MG TABLET PO SCH (09:00)
[2018-10-18 11:01] LABS: HSV Ab Screen IgM by EIA Negative (Negative)
== END 2018-10-16 18:54 | disposition home or self-care (01) | DRG 445 ==
LOC: EDUNIT# → EDBD → N.ED 18:54 → N.EDINP 18:54 → N.3E 23:51
PROVIDERS: ADMIT Hospitalist; ATTEND Hospitalist

== ENCOUNTER 2018-10-23 22:32 | Inpatient (IN) ==
[2018-10-24 00:03] LABS: Apearance,Urine Slightly Hazy (Clear); Bacteria,Urine Occasional /HPF (Few); Bilirubin,Urine Small mg/dL (Negative); Blood, Urine Negative (Negative); Glucose,Urine (UA) Negative (Negative); Hyaline Casts,Urine 36 /LPF (0-3); Ketones,Urine Negative (Negative); Mucus,Urine Moderate /LPF (Occasional); Nitrite,Urine Negative (Negative); Protein,Urine 100 MG/DL; RBC,Urine 1 /HPF (0-4); Squamous Epithelial Cell,Urine Occasional /HPF (0-10); Urine Color Amber (Yellow); WBC,Urine 5 /HPF (0-6)
[2018-10-24 00:16] LABS: Troponin I < 0.015 NG/ML (0.00-0.045)
[2018-10-24] MEDS ORDERED: PROMETHAZINE 25 MG/1 ML VIAL IM PRN (00:34)
[2018-10-24] MEDS ORDERED: BISACODYL 5 MG TABLET PO PRN (00:34)
[2018-10-24] MEDS ORDERED: guaiFENesin/DM ER 600-30 MG TABLET PO PRN (00:34)
[2018-10-24] MEDS ORDERED: NICOTINE 21 MG/24 HR PATCH TRANSDERM PRN (00:34)
[2018-10-24] MEDS ORDERED: ACETAMINOPHEN 325 MG TABLET PO PRN (00:34)
[2018-10-24 00:47] LABS: INR 1.6; PT Patient Result 16.9 SECS
[2018-10-24] MEDS: ONDANSETRON 4 MG/2 ML VIAL IV PRN (00:56)
[2018-10-24] MEDS: MORPHINE 4 MG/1 ML VIAL IV PRN ×3 (00:56→09:06)
[2018-10-24 00:57] LABS: Albumin 3.6 G/DL (3.4-5.0); Basophils # 0.1 10*3/uL (0.0-0.2); Bilirubin,Total 2.9 MG/DL (0.2-1.0); Calcium 8.4 MG/DL (8.5-10.1); Eosinophils # 0.1 10*3/uL (0.0-0.87); Eosinophils % 1.1 % (0.00-10.9); Hematocrit 41.2 VOL% (42.0-52.0); Hemoglobin 12.9 GM/DL (14.0-18.0); Immature Granulocytes % 0.6 %; Immature Granulocytes Absolute 0.04 #; Lymphocytes # 1.6 10*3/uL (1.4-4.0); Lymphocytes % 25.8 % (21.2-54.2); Mean Corpuscular HGB Conc 31.3 GM/DL (32-36); Mean Corpuscular Hemoglobin 23 PG (27-34); Mean Platelet Volume 11.6 FL (9.6-12.0); Monocytes # 0.6 10*3/uL (0.11-0.8); Neutrophils # 3.9 10*3/uL (1.4-7.4); Neutrophils % 62.5 % (38.7-73.9); Osmolality,Calculated 274.5 MOS/KG (273-304); Platelet Count 145 T/CUMM (130-400); Potassium 3.4 MMOL/L (3.5-5.1); Red Blood Count 5.57 MC/CUMM (3.8-5.5); Red Cell Distribution Width 19.2 % (9.3-17.3); Total Protein 7.9 G/DL (6.4-8.3); White Blood Count 6.2 T/CUMM (4-12)
[2018-10-24] MEDS: FUROSEMIDE 40 MG/4 ML VIAL IV SCH ×3 (02:17→16:29)
[2018-10-24] MEDS: CEFEPIME 1,000 MG in SODIUM CHLORIDE 0.9% 100 ML IV SCH ×2 (02:19→14:29)
[2018-10-24 02:51] LABS: Barbiturates Screen,Urine Negative (Negative); Benzodiazepines Screen,Urine Positive (Negative); Cannabinoid Screen,Urine Positive (Negative); Phencyclidine Screen,Urine Negative (Negative)
[2018-10-24] MEDS: diphenhydrAMINE CAP 25 MG CAPSULE PO PRN ×2 (02:57→18:16)
[2018-10-24] MEDS: metroNIDAZOLE INJ 500 MG in PREMIX 1 EACH IV SCH ×2 (03:10→15:34)
[2018-10-24] MEDS: VANCOMYCIN INJ 1,000 MG in SODIUM CHLORIDE 0.9% 250 ML IV SCH ×2 (04:18→16:30)
[2018-10-24] MEDS: MAGNESIUM OXIDE 400 MG TABLET PO SCH ×3 (09:08→21:04)
[2018-10-24] MEDS: POTASSIUM CHLORIDE 20 MEQ TABLET PO SCH (09:09)
[2018-10-24] MEDS: HYDROmorphone 2 MG/1 ML VIAL IV PRN ×2 (17:45→21:37)
[2018-10-25] MEDS: CEFEPIME 1,000 MG in SODIUM CHLORIDE 0.9% 100 ML IV SCH ×2 (01:03→14:04)
[2018-10-25] MEDS: metroNIDAZOLE INJ 500 MG in PREMIX 1 EACH IV SCH ×2 (02:47→14:45)
[2018-10-25] MEDS: HYDROmorphone 2 MG/1 ML VIAL IV PRN ×4 (04:00→20:28)
[2018-10-25] MEDS: VANCOMYCIN INJ 1,000 MG in SODIUM CHLORIDE 0.9% 250 ML IV SCH (05:13)
[2018-10-25 05:40] LABS: Calcium 8.6 MG/DL (8.5-10.1); Osmolality,Calculated 260.7 MOS/KG (273-304); Potassium 3.7 MMOL/L (3.5-5.1)
[2018-10-25 05:43] LABS: Basophils % 0.3 % (0.0-0.8); Eosinophils % 0.5 % (0.00-10.9); Hematocrit 41.2 VOL% (42.0-52.0); Immature Granulocytes % 0.8 %; Immature Granulocytes Absolute 0.05 #; Lymphocytes # 1.3 10*3/uL (1.4-4.0); Lymphocytes % 20.6 % (21.2-54.2); Mean Corpuscular HGB Conc 30.6 GM/DL (32-36); Mean Corpuscular Hemoglobin 24 PG (27-34); Mean Corpuscular Volume 77.7 FL (87-102); Mean Platelet Volume 10.6 FL (9.6-12.0); Monocytes # 0.6 10*3/uL (0.11-0.8); Monocytes % 9.8 % (1.7-12.7); Neutrophils # 4.4 10*3/uL (1.4-7.4); Platelet Count 259 T/CUMM (130-400); Red Cell Distribution Width 19.1 % (9.3-17.3); White Blood Count 6.5 T/CUMM (4-12)
[2018-10-25 05:47] LABS: Hemoglobin 12.6 GM/DL (14.0-18.0)
[2018-10-25] MEDS: diphenhydrAMINE CAP 25 MG CAPSULE PO PRN ×3 (06:36→18:34)
[2018-10-25] MEDS: FUROSEMIDE 40 MG/4 ML VIAL IV SCH (08:59)
[2018-10-25] MEDS: POTASSIUM CHLORIDE 20 MEQ TABLET PO SCH (09:00)
[2018-10-25] MEDS: MAGNESIUM OXIDE 400 MG TABLET PO SCH ×3 (09:01→20:28)
[2018-10-25] MEDS ORDERED: SODIUM CHLORIDE 0.9% 250 ML IV ONE (09:45)
[2018-10-25 12:43] LABS: Total Protein,Body Fluid 4.6 G/DL
[2018-10-25] MEDS: FUROSEMIDE 20 MG TABLET PO SCH (15:58)
[2018-10-26] MEDS: diphenhydrAMINE CAP 25 MG CAPSULE PO PRN ×4 (00:33→20:25)
[2018-10-26] MEDS: HYDROmorphone 2 MG/1 ML VIAL IV PRN ×2 (00:33→07:18)
[2018-10-26] MEDS: CEFEPIME 1,000 MG in SODIUM CHLORIDE 0.9% 100 ML IV SCH ×2 (02:29→13:58)
[2018-10-26] MEDS: metroNIDAZOLE INJ 500 MG in PREMIX 1 EACH IV SCH ×2 (03:20→13:57)
[2018-10-26 04:18] LABS: Basophils % 0.3 % (0.0-0.8); Eosinophils # 0.1 10*3/uL (0.0-0.87); Eosinophils % 0.7 % (0.00-10.9); Hematocrit 37.5 VOL% (42.0-52.0); Hemoglobin 11.5 GM/DL (14.0-18.0); Immature Granulocytes % 0.7 %; Immature Granulocytes Absolute 0.05 #; Lymphocytes % 13.1 % (21.2-54.2); Mean Corpuscular HGB Conc 30.7 GM/DL (32-36); Mean Corpuscular Hemoglobin 23 PG (27-34); Mean Corpuscular Volume 76.2 FL (87-102); Mean Platelet Volume 10.6 FL (9.6-12.0); Monocytes # 0.9 10*3/uL (0.11-0.8); Monocytes % 11.7 % (1.7-12.7); Neutrophils # 5.6 10*3/uL (1.4-7.4); Neutrophils % 73.5 % (38.7-73.9); Platelet Count 238 T/CUMM (130-400); Red Blood Count 4.92 MC/CUMM (3.8-5.5); Red Cell Distribution Width 18.4 % (9.3-17.3); White Blood Count 7.7 T/CUMM (4-12)
[2018-10-26 04:41] LABS: Calcium 8.4 MG/DL (8.5-10.1); Osmolality,Calculated 262.1 MOS/KG (273-304); Potassium 3.7 MMOL/L (3.5-5.1)
[2018-10-26 04:44] LABS: Calcium 8.7 MG/DL (8.5-10.1); Osmolality,Calculated 263.1 MOS/KG (273-304); Potassium 3.8 MMOL/L (3.5-5.1)
[2018-10-26] MEDS: FUROSEMIDE 20 MG TABLET PO SCH ×2 (08:00→15:27)
[2018-10-26] MEDS ORDERED: SODIUM CHLORIDE 0.9% 250 ML IV ONE (08:29)
[2018-10-26] MEDS: MAGNESIUM OXIDE 400 MG TABLET PO SCH ×3 (09:00→20:25)
[2018-10-26] MEDS: PANTOPRAZOLE 40 MG TABLET PO SCH (11:17)
[2018-10-26] MEDS: POTASSIUM CHLORIDE 20 MEQ TABLET PO SCH (11:17)
[2018-10-26] MEDS: MORPHINE 4 MG/1 ML VIAL IV PRN ×3 (12:58→21:04)
[2018-10-26] MEDS: FUROSEMIDE 40 MG/4 ML VIAL IV SCH (17:19)
[2018-10-26 18:32] LABS: Neutrophils,Peritoneal Fluid 29 %
[2018-10-26 18:33] LABS: RBC,Peritoneal Fluid > 100000 T/CUMM
[2018-10-27] MEDS: MORPHINE 4 MG/1 ML VIAL IV PRN ×5 (01:14→19:05)
[2018-10-27] MEDS: CEFEPIME 1,000 MG in SODIUM CHLORIDE 0.9% 100 ML IV SCH (01:15)
[2018-10-27] MEDS: metroNIDAZOLE INJ 500 MG in PREMIX 1 EACH IV SCH (01:51)
[2018-10-27] MEDS: diphenhydrAMINE CAP 25 MG CAPSULE PO PRN ×2 (01:55→20:34)
[2018-10-27 04:25] LABS: Basophils % 0.1 % (0.0-0.8); Eosinophils # 0.1 10*3/uL (0.0-0.87); Eosinophils % 1.2 % (0.00-10.9); Hematocrit 33.6 VOL% (42.0-52.0); Hemoglobin 10.5 GM/DL (14.0-18.0); Immature Granulocytes % 0.5 %; Immature Granulocytes Absolute 0.04 #; Lymphocytes # 0.6 10*3/uL (1.4-4.0); Lymphocytes % 7.8 % (21.2-54.2); Mean Corpuscular HGB Conc 31.3 GM/DL (32-36); Mean Corpuscular Hemoglobin 23 PG (27-34); Mean Corpuscular Volume 74.7 FL (87-102); Monocytes # 0.7 10*3/uL (0.11-0.8); Monocytes % 9.1 % (1.7-12.7); Neutrophils % 81.3 % (38.7-73.9); Platelet Count 241 T/CUMM (130-400); Red Cell Distribution Width 18.7 % (9.3-17.3); White Blood Count 7.3 T/CUMM (4-12)
[2018-10-27 04:49] LABS: Albumin 3.2 G/DL (3.4-5.0); Bilirubin,Total 4.8 MG/DL (0.2-1.0); Osmolality,Calculated 263.9 MOS/KG (273-304); Total Protein 6.9 G/DL (6.4-8.3)
[2018-10-27] MEDS ORDERED: POTASSIUM CHLORIDE 20 MEQ/15 ML UDCUP PO ONE (08:26)
[2018-10-27] MEDS: FUROSEMIDE 40 MG/4 ML VIAL IV SCH ×2 (08:40→17:51)
[2018-10-27] MEDS: PANTOPRAZOLE 40 MG TABLET PO SCH (08:41)
[2018-10-27] MEDS: MAGNESIUM OXIDE 400 MG TABLET PO SCH ×3 (08:41→20:34)
[2018-10-27] MEDS: POTASSIUM CHLORIDE 20 MEQ TABLET PO SCH (08:41)
[2018-10-27] MEDS: LEVOFLOXACIN INJ 500 MG in PREMIX 1 EACH IV SCH (08:47)
[2018-10-27 16:43] LABS: Hepatitis A Ab IgM Quant 0.13 Index; Hepatitis A Ab IgM Result Negative (Negative); Hepatitis B Core IgM Quant 0.12 Index; Hepatitis B Core IgM Result Negative (Negative); Hepatitis B Surface Ag Quant < 0.10 Index; Hepatitis B Surface Ag Result Negative (Negative); Hepatitis C Virus Ab Quant 0.15 Index; Hepatitis C Virus Ab Result Negative (Negative)
[2018-10-27] MEDS ORDERED: ALUMINUM/MAGNES/SIMETH MAX STR 30 ML UDCUP PO PRN (17:51)
[2018-10-27] MEDS: ONDANSETRON 4 MG/2 ML VIAL IV PRN (19:04)
[2018-10-28] MEDS: MORPHINE 4 MG/1 ML VIAL IV PRN ×5 (00:57→21:22)
[2018-10-28] MEDS: diphenhydrAMINE CAP 25 MG CAPSULE PO PRN ×3 (02:19→23:31)
[2018-10-28 04:56] LABS: Basophils % 0.3 % (0.0-0.8); Eosinophils # 0.1 10*3/uL (0.0-0.87); Eosinophils % 0.9 % (0.00-10.9); Hematocrit 36.4 VOL% (42.0-52.0); Hemoglobin 11.9 GM/DL (14.0-18.0); Immature Granulocytes % 0.7 %; Immature Granulocytes Absolute 0.05 #; Lymphocytes # 0.8 10*3/uL (1.4-4.0); Lymphocytes % 11.6 % (21.2-54.2); Mean Corpuscular HGB Conc 32.7 GM/DL (32-36); Mean Corpuscular Hemoglobin 24 PG (27-34); Mean Corpuscular Volume 72.9 FL (87-102); Mean Platelet Volume 11.2 FL (9.6-12.0); Monocytes # 0.6 10*3/uL (0.11-0.8); Monocytes % 9.2 % (1.7-12.7); Neutrophils # 5.2 10*3/uL (1.4-7.4); Neutrophils % 77.3 % (38.7-73.9); Platelet Count 273 T/CUMM (130-400); Red Blood Count 4.99 MC/CUMM (3.8-5.5); Red Cell Distribution Width 19.3 % (9.3-17.3); White Blood Count 6.7 T/CUMM (4-12)
[2018-10-28 05:03] LABS: Calcium 7.7 MG/DL (8.5-10.1); Osmolality,Calculated 259.9 MOS/KG (273-304); Potassium 3.3 MMOL/L (3.5-5.1)
[2018-10-28 05:08] LABS: Albumin 3.1 G/DL (3.4-5.0); Bilirubin,Direct 4.42 MG/DL (0.0-0.20); Bilirubin,Indirect 2.1 MG/DL (0.0-1.0); Bilirubin,Total 6.5 MG/DL (0.2-1.0); Total Protein 7.2 G/DL (6.4-8.3)
[2018-10-28] MEDS: LEVOFLOXACIN INJ 500 MG in PREMIX 1 EACH IV SCH (08:42)
[2018-10-28] MEDS: MAGNESIUM OXIDE 400 MG TABLET PO SCH ×3 (08:43→21:22)
[2018-10-28] MEDS: POTASSIUM CHLORIDE 20 MEQ TABLET PO SCH (08:43)
[2018-10-28] MEDS: FUROSEMIDE 40 MG/4 ML VIAL IV SCH ×2 (08:43→17:34)
[2018-10-28] MEDS: PANTOPRAZOLE 40 MG TABLET PO SCH (08:43)
[2018-10-28] MEDS ORDERED: POTASSIUM CHLORIDE 20 MEQ TABLET PO ONE (10:08)
[2018-10-28] MEDS: CARVEDILOL 3.125 MG TABLET PO SCH ×2 (11:10→21:22)
[2018-10-28] MEDS: DIGOXIN 0.125 MG TABLET PO SCH (14:58)
[2018-10-28] MEDS: LISINOPRIL 2.5 MG TABLET PO SCH (21:22)
[2018-10-29] MEDS: MORPHINE 4 MG/1 ML VIAL IV PRN ×2 (01:24→09:32)
[2018-10-29 05:06] LABS: Basophils % 0.3 % (0.0-0.8); Eosinophils # 0.1 10*3/uL (0.0-0.87); Eosinophils % 1.3 % (0.00-10.9); Hematocrit 35.6 VOL% (42.0-52.0); Hemoglobin 11.3 GM/DL (14.0-18.0); Immature Granulocytes % 0.5 %; Immature Granulocytes Absolute 0.03 #; Lymphocytes # 0.9 10*3/uL (1.4-4.0); Lymphocytes % 15.3 % (21.2-54.2); Mean Corpuscular HGB Conc 31.7 GM/DL (32-36); Mean Corpuscular Hemoglobin 23 PG (27-34); Mean Corpuscular Volume 73.7 FL (87-102); Mean Platelet Volume 10.6 FL (9.6-12.0); Monocytes # 0.7 10*3/uL (0.11-0.8); Neutrophils # 4.2 10*3/uL (1.4-7.4); Neutrophils % 71.6 % (38.7-73.9); Platelet Count 267 T/CUMM (130-400); Red Blood Count 4.83 MC/CUMM (3.8-5.5); Red Cell Distribution Width 19.9 % (9.3-17.3); White Blood Count 5.9 T/CUMM (4-12)
[2018-10-29 05:30] LABS: Calcium 8.2 MG/DL (8.5-10.1); Osmolality,Calculated 259.1 MOS/KG (273-304); Potassium 3.6 MMOL/L (3.5-5.1)
[2018-10-29] MEDS ORDERED: ASPIRIN EC 81 MG TABLET PO SCH (09:00)
[2018-10-29] MEDS: POTASSIUM CHLORIDE 20 MEQ TABLET PO SCH (09:20)
[2018-10-29] MEDS: PANTOPRAZOLE 40 MG TABLET PO SCH (09:20)
[2018-10-29] MEDS: MAGNESIUM OXIDE 400 MG TABLET PO SCH ×2 (09:20→15:23)
[2018-10-29] MEDS: CARVEDILOL 3.125 MG TABLET PO SCH (09:20)
[2018-10-29] MEDS: LISINOPRIL 2.5 MG TABLET PO SCH (09:21)
[2018-10-29] MEDS: FUROSEMIDE 40 MG/4 ML VIAL IV SCH ×2 (09:23→19:18)
[2018-10-29] MEDS: LEVOFLOXACIN INJ 500 MG in PREMIX 1 EACH IV SCH (09:29)
[2018-10-29] MEDS: DIGOXIN 0.125 MG TABLET PO SCH (15:23)
[2018-10-29 16:33] VITALS: BP 94/71
== END 2018-10-29 17:45 | disposition home or self-care (01) | DRG 947 ==
LOC: EDBD → EDUNIT# → N.ED 22:32 → N.EDINP 10-24 00:34 → N.3E 10-24 01:36
PROVIDERS: ADMIT Internal Medicine; ATTEND Internal Medicine

== ENCOUNTER 2018-11-05 17:30 | Inpatient (IN) ==
[2018-11-05] MEDS ORDERED: MEROPENEM 500 MG in SODIUM CHLORIDE 0.9% 100 ML IV SCH (21:30)
[2018-11-05] MEDS: SODIUM CHLORIDE 0.9% 1,000 ML IV SCH (22:01)
[2018-11-05] MEDS: MORPHINE 4 MG/1 ML VIAL IV PRN (22:04)
[2018-11-05] MEDS: MEROPENEM 1,000 MG in SODIUM CHLORIDE 0.9% 100 ML IV SCH (22:19)
[2018-11-05] MEDS: ENOXAPARIN 40 MG/0.4 ML SYRINGE SUBCUT SCH (22:20)
[2018-11-06] MEDS: MORPHINE 4 MG/1 ML VIAL IV PRN ×3 (05:27→21:29)
[2018-11-06 05:53] LABS: Basophils % 0.5 % (0.0-0.8); Eosinophils # 0.1 10*3/uL (0.0-0.87); Eosinophils % 1.4 % (0.00-10.9); Hematocrit 36.3 VOL% (42.0-52.0); Hemoglobin 11.4 GM/DL (14.0-18.0); Immature Granulocytes % 0.5 %; Immature Granulocytes Absolute 0.03 #; Lymphocytes # 1.2 10*3/uL (1.4-4.0); Lymphocytes % 18.5 % (21.2-54.2); Mean Corpuscular HGB Conc 31.4 GM/DL (32-36); Mean Corpuscular Hemoglobin 23 PG (27-34); Mean Corpuscular Volume 74.2 FL (87-102); Mean Platelet Volume 10.5 FL (9.6-12.0); Monocytes # 0.6 10*3/uL (0.11-0.8); Monocytes % 8.9 % (1.7-12.7); Neutrophils # 4.5 10*3/uL (1.4-7.4); Neutrophils % 70.2 % (38.7-73.9); Platelet Count 395 T/CUMM (130-400); Red Blood Count 4.89 MC/CUMM (3.8-5.5); Red Cell Distribution Width 21.7 % (9.3-17.3); White Blood Count 6.4 T/CUMM (4-12)
[2018-11-06 06:09] LABS: Albumin 3.2 G/DL (3.4-5.0); Bilirubin,Total 5.4 MG/DL (0.2-1.0); Calcium 8.7 MG/DL (8.5-10.1); Osmolality,Calculated 265.5 MOS/KG (273-304); Potassium 3.5 MMOL/L (3.5-5.1); Total Protein 7.8 G/DL (6.4-8.3)
[2018-11-06] MEDS: MEROPENEM 1,000 MG in SODIUM CHLORIDE 0.9% 100 ML IV SCH ×3 (06:30→21:22)
[2018-11-06] MEDS ORDERED: FUROSEMIDE 40 MG TABLET PO SCH (08:00)
[2018-11-06] MEDS ORDERED: LISINOPRIL 2.5 MG TABLET PO SCH (09:00)
[2018-11-06] MEDS: POTASSIUM CHLORIDE 20 MEQ TABLET PO SCH (09:00)
[2018-11-06] MEDS: ASPIRIN EC 81 MG TABLET PO SCH (09:00)
[2018-11-06] MEDS ORDERED: CARVEDILOL 3.125 MG TABLET PO SCH (09:00)
[2018-11-06] MEDS ORDERED: SODIUM CHLORIDE 0.9% 250 ML IV ONE (09:59)
[2018-11-06] MEDS ORDERED: MIDAZOLAM 2 MG/2 ML VIAL ONE (10:04)
[2018-11-06] MEDS: SUCRALFATE 1 GM/10 ML UDCUP PO SCH ×3 (11:30→21:22)
[2018-11-06] MEDS ORDERED: MAGNESIUM SULF RIDER 4 GM in PREMIX 1 EACH IV PRN (16:21)
[2018-11-06] MEDS: PANTOPRAZOLE 40 MG VIAL IV SCH ×2 (17:11→21:21)
[2018-11-06] MEDS: FUROSEMIDE 40 MG/4 ML VIAL IV SCH (17:11)
[2018-11-06] MEDS: METOPROLOL SUCCINATE XL 25 MG TABLET PO SCH (17:12)
[2018-11-06] MEDS: DIGOXIN 0.125 MG TABLET PO SCH (17:13)
[2018-11-06 20:37] LABS: Apearance,Urine Slightly Hazy (Clear); Blood, Urine Negative (Negative); Glucose,Urine (UA) 50 mg/dL (Negative); Hyaline Casts,Urine 63 /LPF (0-3); Ketones,Urine 5 mg/dL (Negative); Mucus,Urine Few /LPF (Occasional); Nitrite,Urine Negative (Negative); Protein,Urine 100 MG/DL; RBC,Urine 5 /HPF (0-4); Urine Color Amber (Yellow); Urine Specific Gravity 1.031 (1.001-1.035); WBC,Urine 10 /HPF (0-6)
[2018-11-06 20:38] LABS: Bilirubin,Urine Small mg/dL (Negative)
[2018-11-06] MEDS: ENOXAPARIN 40 MG/0.4 ML SYRINGE SUBCUT SCH (21:22)
[2018-11-06] MEDS: diphenhydrAMINE CAP 25 MG CAPSULE PO PRN (23:37)
[2018-11-07] MEDS: ONDANSETRON 4 MG/2 ML VIAL IV PRN ×2 (01:12→21:13)
[2018-11-07] MEDS: MORPHINE 4 MG/1 ML VIAL IV PRN ×5 (01:13→21:13)
[2018-11-07] MEDS: SODIUM CHLORIDE 0.9% 1,000 ML IV SCH (05:46)
[2018-11-07] MEDS: MEROPENEM 1,000 MG in SODIUM CHLORIDE 0.9% 100 ML IV SCH ×3 (05:46→21:14)
[2018-11-07 06:13] LABS: Basophils # 0.1 10*3/uL (0.0-0.2); Basophils % 0.7 % (0.0-0.8); Eosinophils # 0.1 10*3/uL (0.0-0.87); Eosinophils % 0.7 % (0.00-10.9); Hematocrit 36.5 VOL% (42.0-52.0); Hemoglobin 11.6 GM/DL (14.0-18.0); Immature Granulocytes % 0.8 %; Immature Granulocytes Absolute 0.06 #; Lymphocytes # 1.6 10*3/uL (1.4-4.0); Lymphocytes % 21.4 % (21.2-54.2); Mean Corpuscular HGB Conc 31.8 GM/DL (32-36); Mean Corpuscular Hemoglobin 23 PG (27-34); Mean Corpuscular Volume 73.6 FL (87-102); Mean Platelet Volume 10.3 FL (9.6-12.0); Monocytes # 0.8 10*3/uL (0.11-0.8); Monocytes % 10.1 % (1.7-12.7); Neutrophils % 66.3 % (38.7-73.9); Platelet Count 408 T/CUMM (130-400); Red Blood Count 4.96 MC/CUMM (3.8-5.5); Red Cell Distribution Width 21.9 % (9.3-17.3); White Blood Count 7.5 T/CUMM (4-12)
[2018-11-07 06:25] LABS: INR 2.4; PT Patient Result 25.6 SECS
[2018-11-07 06:35] LABS: Calcium 8.8 MG/DL (8.5-10.1); Osmolality,Calculated 257.4 MOS/KG (273-304); Potassium 4.1 MMOL/L (3.5-5.1)
[2018-11-07] MEDS: SUCRALFATE 1 GM/10 ML UDCUP PO SCH ×4 (08:32→21:12)
[2018-11-07] MEDS: ASPIRIN EC 81 MG TABLET PO SCH (08:32)
[2018-11-07] MEDS: PANTOPRAZOLE 40 MG VIAL IV SCH ×2 (08:33→21:13)
[2018-11-07] MEDS: METOPROLOL SUCCINATE XL 25 MG TABLET PO SCH (09:00)
[2018-11-07] MEDS: DIGOXIN 0.125 MG TABLET PO SCH (14:09)
[2018-11-07] MEDS: diphenhydrAMINE CAP 25 MG CAPSULE PO PRN (14:09)
[2018-11-07] MEDS: FUROSEMIDE 40 MG/4 ML VIAL IV SCH (15:40)
[2018-11-07] MEDS: POTASSIUM CHLORIDE 20 MEQ TABLET PO SCH (16:12)
[2018-11-07] MEDS: ENOXAPARIN 40 MG/0.4 ML SYRINGE SUBCUT SCH (21:12)
[2018-11-08] MEDS: MORPHINE 4 MG/1 ML VIAL IV PRN ×5 (01:48→20:41)
[2018-11-08] MEDS: diphenhydrAMINE CAP 25 MG CAPSULE PO PRN (04:48)
[2018-11-08 05:53] LABS: Basophils % 0.5 % (0.0-0.8); Eosinophils # 0.1 10*3/uL (0.0-0.87); Eosinophils % 1.7 % (0.00-10.9); Hemoglobin 10.6 GM/DL (14.0-18.0); Immature Granulocytes % 0.9 %; Immature Granulocytes Absolute 0.07 #; Lymphocytes # 1.1 10*3/uL (1.4-4.0); Lymphocytes % 14.2 % (21.2-54.2); Mean Corpuscular HGB Conc 32.1 GM/DL (32-36); Mean Corpuscular Hemoglobin 23 PG (27-34); Mean Corpuscular Volume 72.8 FL (87-102); Mean Platelet Volume 10.1 FL (9.6-12.0); Monocytes # 0.8 10*3/uL (0.11-0.8); Monocytes % 10.6 % (1.7-12.7); Neutrophils # 5.5 10*3/uL (1.4-7.4); Neutrophils % 72.1 % (38.7-73.9); Platelet Count 384 T/CUMM (130-400); Red Blood Count 4.53 MC/CUMM (3.8-5.5); Red Cell Distribution Width 21.2 % (9.3-17.3); White Blood Count 7.7 T/CUMM (4-12)
[2018-11-08 06:01] LABS: Calcium 8.3 MG/DL (8.5-10.1); Osmolality,Calculated 258.4 MOS/KG (273-304); Potassium 3.8 MMOL/L (3.5-5.1)
[2018-11-08] MEDS: MEROPENEM 1,000 MG in SODIUM CHLORIDE 0.9% 100 ML IV SCH ×3 (06:11→21:00)
[2018-11-08] MEDS: SUCRALFATE 1 GM/10 ML UDCUP PO SCH ×4 (06:30→20:40)
[2018-11-08] MEDS: POTASSIUM CHLORIDE 20 MEQ TABLET PO SCH (08:27)
[2018-11-08] MEDS: ASPIRIN EC 81 MG TABLET PO SCH (08:27)
[2018-11-08] MEDS: METOPROLOL SUCCINATE XL 25 MG TABLET PO SCH (08:27)
[2018-11-08] MEDS: PANTOPRAZOLE 40 MG VIAL IV SCH ×2 (08:27→20:41)
[2018-11-08] MEDS: DIGOXIN 0.125 MG TABLET PO SCH (14:30)
[2018-11-08] MEDS: ENOXAPARIN 40 MG/0.4 ML SYRINGE SUBCUT SCH (20:40)
[2018-11-08] MEDS: ONDANSETRON 4 MG/2 ML VIAL IV PRN (20:41)
[2018-11-08] MEDS ORDERED: FUROSEMIDE 40 MG/4 ML VIAL IV SCH (21:02)
[2018-11-09] MEDS: MORPHINE 4 MG/1 ML VIAL IV PRN ×5 (00:47→22:13)
[2018-11-09 06:39] LABS: Albumin 2.8 G/DL (3.4-5.0); Bilirubin,Total 7.4 MG/DL (0.2-1.0); Calcium 8.6 MG/DL (8.5-10.1); Osmolality,Calculated 258.2 MOS/KG (273-304); Potassium 3.7 MMOL/L (3.5-5.1); Total Protein 6.8 G/DL (6.4-8.3)
[2018-11-09] MEDS: MEROPENEM 1,000 MG in SODIUM CHLORIDE 0.9% 100 ML IV SCH ×3 (06:42→22:16)
[2018-11-09] MEDS: PANTOPRAZOLE 40 MG VIAL IV SCH ×2 (08:44→20:05)
[2018-11-09] MEDS: FUROSEMIDE 40 MG/4 ML VIAL IV SCH (08:45)
[2018-11-09] MEDS: ASPIRIN EC 81 MG TABLET PO SCH (08:45)
[2018-11-09] MEDS: SPIRONOLACTONE 25 MG TABLET PO SCH (08:45)
[2018-11-09] MEDS: SUCRALFATE 1 GM/10 ML UDCUP PO SCH ×4 (08:45→20:05)
[2018-11-09] MEDS: POTASSIUM CHLORIDE 20 MEQ TABLET PO SCH (08:45)
[2018-11-09] MEDS: PROPRANOLOL 10 MG TABLET PO SCH ×3 (08:45→20:05)
[2018-11-09] MEDS: DIGOXIN 0.125 MG TABLET PO SCH (14:27)
[2018-11-09] MEDS: ONDANSETRON 4 MG/2 ML VIAL IV PRN (22:22)
[2018-11-10] MEDS: MORPHINE 4 MG/1 ML VIAL IV PRN ×5 (02:59→23:17)
[2018-11-10 05:19] LABS: Basophils % 0.5 % (0.0-0.8); Eosinophils # 0.1 10*3/uL (0.0-0.87); Hematocrit 34.1 VOL% (42.0-52.0); Hemoglobin 10.9 GM/DL (14.0-18.0); Immature Granulocytes Absolute 0.06 #; Lymphocytes # 0.9 10*3/uL (1.4-4.0); Lymphocytes % 14.8 % (21.2-54.2); Mean Corpuscular Hemoglobin 24 PG (27-34); Mean Corpuscular Volume 74.5 FL (87-102); Mean Platelet Volume 10.3 FL (9.6-12.0); Monocytes # 0.6 10*3/uL (0.11-0.8); Monocytes % 10.7 % (1.7-12.7); Neutrophils # 4.2 10*3/uL (1.4-7.4); Platelet Count 373 T/CUMM (130-400); Red Blood Count 4.58 MC/CUMM (3.8-5.5); Red Cell Distribution Width 22.7 % (9.3-17.3); White Blood Count 5.8 T/CUMM (4-12)
[2018-11-10] MEDS: MEROPENEM 1,000 MG in SODIUM CHLORIDE 0.9% 100 ML IV SCH ×3 (05:24→21:42)
[2018-11-10 05:32] LABS: Albumin 2.8 G/DL (3.4-5.0); Bilirubin,Direct 5.36 MG/DL (0.0-0.20); Bilirubin,Indirect 1.6 MG/DL (0.0-1.0); Calcium 8.2 MG/DL (8.5-10.1); Osmolality,Calculated 260.1 MOS/KG (273-304); PT Patient Result 21.3 SECS; Potassium 3.4 MMOL/L (3.5-5.1); Total Protein 6.9 G/DL (6.4-8.3)
[2018-11-10 05:46] LABS: Hypochromasia 2+; Microcytosis 1+; Target Cells Few
[2018-11-10 05:47] LABS: Acanthocytes Few; Ovalocytes Few; Platelet Estimate Normal; Polychromasia Slight
[2018-11-10] MEDS: MAGNESIUM SULF RIDER 2 GM in PREMIX 1 EACH IV PRN (06:30)
[2018-11-10] MEDS: POTASSIUM CHLORIDE 20 MEQ TABLET PO SCH (08:45)
[2018-11-10] MEDS: SPIRONOLACTONE 25 MG TABLET PO SCH ×2 (08:45→21:42)
[2018-11-10] MEDS: PROPRANOLOL 10 MG TABLET PO SCH ×3 (08:45→21:42)
[2018-11-10] MEDS: ASPIRIN EC 81 MG TABLET PO SCH (08:45)
[2018-11-10] MEDS: SUCRALFATE 1 GM/10 ML UDCUP PO SCH ×4 (08:46→21:41)
[2018-11-10] MEDS: FUROSEMIDE 40 MG/4 ML VIAL IV SCH ×2 (08:46→17:36)
[2018-11-10] MEDS: PANTOPRAZOLE 40 MG VIAL IV SCH ×2 (08:48→21:42)
[2018-11-10] MEDS ORDERED: PHYTONADIONE 10 MG/1 ML AMP SUBCUT ONE (11:34)
[2018-11-10] MEDS: DIGOXIN 0.125 MG TABLET PO SCH (12:46)
[2018-11-11] MEDS: MORPHINE 4 MG/1 ML VIAL IV PRN ×3 (03:12→21:49)
[2018-11-11] MEDS: ONDANSETRON 4 MG/2 ML VIAL IV PRN (03:13)
[2018-11-11] MEDS: MEROPENEM 1,000 MG in SODIUM CHLORIDE 0.9% 100 ML IV SCH ×3 (05:01→21:41)
[2018-11-11 06:24] LABS: Basophils % 0.3 % (0.0-0.8); Eosinophils # 0.1 10*3/uL (0.0-0.87); Eosinophils % 1.9 % (0.00-10.9); Hematocrit 37.2 VOL% (42.0-52.0); Hemoglobin 11.9 GM/DL (14.0-18.0); Immature Granulocytes % 0.5 %; Immature Granulocytes Absolute 0.03 #; Lymphocytes # 0.8 10*3/uL (1.4-4.0); Lymphocytes % 13.2 % (21.2-54.2); Mean Corpuscular Hemoglobin 24 PG (27-34); Mean Corpuscular Volume 74.3 FL (87-102); Mean Platelet Volume 10.4 FL (9.6-12.0); Monocytes # 0.4 10*3/uL (0.11-0.8); Monocytes % 7.1 % (1.7-12.7); Neutrophils # 4.5 10*3/uL (1.4-7.4); Platelet Count 386 T/CUMM (130-400); Red Blood Count 5.01 MC/CUMM (3.8-5.5); Red Cell Distribution Width 23.5 % (9.3-17.3); White Blood Count 5.9 T/CUMM (4-12)
[2018-11-11 06:46] LABS: Platelet Estimate Normal
[2018-11-11 06:47] LABS: Polychromasia Few
[2018-11-11 07:02] LABS: Calcium 8.6 MG/DL (8.5-10.1); Osmolality,Calculated 258.1 MOS/KG (273-304); Potassium 3.2 MMOL/L (3.5-5.1)
[2018-11-11] MEDS: PANTOPRAZOLE 40 MG VIAL IV SCH ×2 (08:36→21:41)
[2018-11-11] MEDS: PROPRANOLOL 10 MG TABLET PO SCH ×3 (08:37→21:40)
[2018-11-11] MEDS: POTASSIUM CHLORIDE 20 MEQ TABLET PO SCH (08:37)
[2018-11-11] MEDS: SUCRALFATE 1 GM/10 ML UDCUP PO SCH ×4 (08:37→21:41)
[2018-11-11] MEDS: SPIRONOLACTONE 25 MG TABLET PO SCH ×2 (08:37→21:41)
[2018-11-11] MEDS: FUROSEMIDE 40 MG/4 ML VIAL IV SCH ×2 (08:37→17:28)
[2018-11-11] MEDS: ASPIRIN EC 81 MG TABLET PO SCH (08:38)
[2018-11-11 08:42] LABS: Bilirubin,Direct 5.46 MG/DL (0.0-0.20); Bilirubin,Indirect 1.8 MG/DL (0.0-1.0); Bilirubin,Total 7.3 MG/DL (0.2-1.0); Total Protein 7.6 G/DL (6.4-8.3)
[2018-11-11] MEDS ORDERED: PHYTONADIONE 10 MG/1 ML AMP SUBCUT ONE (11:35)
[2018-11-11 12:06] LABS: INR 1.4; PT Patient Result 15.4 SECS
[2018-11-11] MEDS: DIGOXIN 0.125 MG TABLET PO SCH (12:18)
[2018-11-11] MEDS: diphenhydrAMINE CAP 25 MG CAPSULE PO PRN (21:47)
[2018-11-12 05:18] LABS: Calcium 8.2 MG/DL (8.5-10.1); Osmolality,Calculated 257.9 MOS/KG (273-304); Potassium 3.1 MMOL/L (3.5-5.1)
[2018-11-12 05:20] LABS: Albumin 2.7 G/DL (3.4-5.0); Bilirubin,Direct 4.61 MG/DL (0.0-0.20); Bilirubin,Indirect 2.5 MG/DL (0.0-1.0); Bilirubin,Total 7.1 MG/DL (0.2-1.0); Total Protein 6.9 G/DL (6.4-8.3)
[2018-11-12] MEDS: MEROPENEM 1,000 MG in SODIUM CHLORIDE 0.9% 100 ML IV SCH ×3 (06:45→21:36)
[2018-11-12] MEDS: SUCRALFATE 1 GM/10 ML UDCUP PO SCH ×4 (09:44→21:31)
[2018-11-12] MEDS: ASPIRIN EC 81 MG TABLET PO SCH (09:45)
[2018-11-12] MEDS: SPIRONOLACTONE 25 MG TABLET PO SCH ×2 (09:45→21:31)
[2018-11-12] MEDS: PROPRANOLOL 10 MG TABLET PO SCH ×3 (09:45→21:31)
[2018-11-12] MEDS: POTASSIUM CHLORIDE 20 MEQ TABLET PO SCH (09:45)
[2018-11-12] MEDS: FUROSEMIDE 40 MG/4 ML VIAL IV SCH ×2 (09:45→15:12)
[2018-11-12] MEDS: PANTOPRAZOLE 40 MG VIAL IV SCH ×2 (09:45→21:31)
[2018-11-12] MEDS: POTASSIUM CHLORIDE 20 MEQ TABLET PO PRN ×3 (10:22→17:19)
[2018-11-12] MEDS ORDERED: PHYTONADIONE 10 MG/1 ML AMP SUBCUT ONE (11:35)
[2018-11-12] MEDS: DIGOXIN 0.125 MG TABLET PO SCH (12:09)
[2018-11-12] MEDS: MAGNESIUM SULF RIDER 2 GM in PREMIX 1 EACH IV PRN ×2 (18:55→21:36)
[2018-11-13 05:52] LABS: Basophils % 0.3 % (0.0-0.8); Eosinophils # 0.1 10*3/uL (0.0-0.87); Eosinophils % 1.3 % (0.00-10.9); Hematocrit 36.5 VOL% (42.0-52.0); Hemoglobin 11.8 GM/DL (14.0-18.0); Immature Granulocytes % 0.6 %; Immature Granulocytes Absolute 0.04 #; Lymphocytes # 1.2 10*3/uL (1.4-4.0); Lymphocytes % 17.2 % (21.2-54.2); Mean Corpuscular HGB Conc 32.3 GM/DL (32-36); Mean Corpuscular Hemoglobin 24 PG (27-34); Mean Corpuscular Volume 73.9 FL (87-102); Mean Platelet Volume 10.2 FL (9.6-12.0); Monocytes # 0.6 10*3/uL (0.11-0.8); Monocytes % 8.8 % (1.7-12.7); Neutrophils # 4.8 10*3/uL (1.4-7.4); Neutrophils % 71.8 % (38.7-73.9); Platelet Count 332 T/CUMM (130-400); Red Blood Count 4.94 MC/CUMM (3.8-5.5); Red Cell Distribution Width 23.9 % (9.3-17.3); White Blood Count 6.7 T/CUMM (4-12)
[2018-11-13] MEDS: MEROPENEM 1,000 MG in SODIUM CHLORIDE 0.9% 100 ML IV SCH (05:54)
[2018-11-13 06:21] LABS: Albumin 2.7 G/DL (3.4-5.0); Bilirubin,Direct 4.14 MG/DL (0.0-0.20); Bilirubin,Indirect 1.8 MG/DL (0.0-1.0); Bilirubin,Total 5.9 MG/DL (0.2-1.0); Calcium 8.3 MG/DL (8.5-10.1); Osmolality,Calculated 262.7 MOS/KG (273-304); Potassium 3.6 MMOL/L (3.5-5.1); Total Protein 7.1 G/DL (6.4-8.3)
[2018-11-13 06:34] LABS: Band Neutrophils 1 % (0-10); Eosinophils 1 % (0-10); Lymphocytes 17 % (20-55); Segmented Neutrophils 76 % (50-85); Total Cells Counted 100
[2018-11-13 06:35] LABS: Acanthocytes Few; Anisocytosis 1+; Hypochromasia 2+; Microcytosis 1+; Target Cells Few
[2018-11-13 06:36] LABS: Platelet Estimate Normal
[2018-11-13] MEDS: FUROSEMIDE 40 MG/4 ML VIAL IV SCH ×2 (09:58→16:21)
[2018-11-13] MEDS: SPIRONOLACTONE 25 MG TABLET PO SCH ×2 (10:19→20:23)
[2018-11-13] MEDS: ASPIRIN EC 81 MG TABLET PO SCH (10:19)
[2018-11-13] MEDS: PROPRANOLOL 10 MG TABLET PO SCH ×3 (10:20→20:33)
[2018-11-13] MEDS: POTASSIUM CHLORIDE 20 MEQ TABLET PO SCH (10:21)
[2018-11-13] MEDS: SUCRALFATE 1 GM/10 ML UDCUP PO SCH ×4 (10:22→20:24)
[2018-11-13] MEDS: PANTOPRAZOLE 40 MG VIAL IV SCH ×2 (10:22→20:23)
[2018-11-13] MEDS: MORPHINE 4 MG/1 ML VIAL IV PRN ×2 (15:07→23:37)
[2018-11-13] MEDS: DIGOXIN 0.125 MG TABLET PO SCH (15:08)
[2018-11-13] MEDS: POTASSIUM CHLORIDE 20 MEQ TABLET PO PRN (20:24)
[2018-11-14] MEDS: MORPHINE 4 MG/1 ML VIAL IV PRN ×4 (05:21→20:28)
[2018-11-14] MEDS: POTASSIUM CHLORIDE 20 MEQ TABLET PO PRN ×4 (05:22→16:21)
[2018-11-14 06:06] LABS: Basophils % 0.5 % (0.0-0.8); Eosinophils # 0.1 10*3/uL (0.0-0.87); Eosinophils % 1.5 % (0.00-10.9); Hematocrit 36.3 VOL% (42.0-52.0); Hemoglobin 11.8 GM/DL (14.0-18.0); Immature Granulocytes % 0.6 %; Immature Granulocytes Absolute 0.04 #; Lymphocytes # 0.9 10*3/uL (1.4-4.0); Lymphocytes % 13.1 % (21.2-54.2); Mean Corpuscular HGB Conc 32.5 GM/DL (32-36); Mean Corpuscular Hemoglobin 24 PG (27-34); Mean Corpuscular Volume 73.3 FL (87-102); Mean Platelet Volume 10.3 FL (9.6-12.0); Monocytes # 0.6 10*3/uL (0.11-0.8); Neutrophils # 4.9 10*3/uL (1.4-7.4); Neutrophils % 75.3 % (38.7-73.9); Platelet Count 304 T/CUMM (130-400); Red Blood Count 4.95 MC/CUMM (3.8-5.5); Red Cell Distribution Width 23.7 % (9.3-17.3); White Blood Count 6.6 T/CUMM (4-12)
[2018-11-14 06:24] LABS: Calcium 8.1 MG/DL (8.5-10.1); Osmolality,Calculated 261.7 MOS/KG (273-304); Potassium 3.2 MMOL/L (3.5-5.1)
[2018-11-14 06:36] LABS: Albumin 2.6 G/DL (3.4-5.0); Bilirubin,Direct 3.45 MG/DL (0.0-0.20); Bilirubin,Indirect 1.7 MG/DL (0.0-1.0); Bilirubin,Total 5.1 MG/DL (0.2-1.0); Total Protein 6.7 G/DL (6.4-8.3)
[2018-11-14] MEDS: POTASSIUM CHLORIDE 20 MEQ TABLET PO SCH (08:50)
[2018-11-14] MEDS: SPIRONOLACTONE 25 MG TABLET PO SCH ×2 (08:51→20:30)
[2018-11-14] MEDS: ASPIRIN EC 81 MG TABLET PO SCH (08:51)
[2018-11-14] MEDS: PROPRANOLOL 10 MG TABLET PO SCH ×3 (08:51→20:30)
[2018-11-14] MEDS: FUROSEMIDE 40 MG/4 ML VIAL IV SCH ×2 (08:51→16:11)
[2018-11-14] MEDS: SUCRALFATE 1 GM/10 ML UDCUP PO SCH ×4 (08:51→20:30)
[2018-11-14] MEDS: PANTOPRAZOLE 40 MG VIAL IV SCH ×2 (09:24→20:29)
[2018-11-14] MEDS: MAGNESIUM SULF RIDER 2 GM in PREMIX 1 EACH IV PRN (11:40)
[2018-11-14] MEDS: DIGOXIN 0.125 MG TABLET PO SCH (14:22)
[2018-11-14] MEDS: ONDANSETRON 4 MG/2 ML VIAL IV PRN (21:46)
[2018-11-15] MEDS: MORPHINE 4 MG/1 ML VIAL IV PRN ×4 (00:23→21:06)
[2018-11-15] MEDS: ONDANSETRON 4 MG/2 ML VIAL IV PRN (04:40)
[2018-11-15] MEDS: diphenhydrAMINE CAP 25 MG CAPSULE PO PRN (05:25)
[2018-11-15 06:06] LABS: Basophils % 0.5 % (0.0-0.8); Eosinophils # 0.1 10*3/uL (0.0-0.87); Eosinophils % 2.2 % (0.00-10.9); Hematocrit 35.9 VOL% (42.0-52.0); Hemoglobin 11.6 GM/DL (14.0-18.0); Immature Granulocytes % 0.5 %; Immature Granulocytes Absolute 0.03 #; Lymphocytes % 16.2 % (21.2-54.2); Mean Corpuscular HGB Conc 32.3 GM/DL (32-36); Mean Corpuscular Hemoglobin 24 PG (27-34); Mean Corpuscular Volume 74.3 FL (87-102); Monocytes # 0.5 10*3/uL (0.11-0.8); Monocytes % 8.4 % (1.7-12.7); Neutrophils # 4.3 10*3/uL (1.4-7.4); Neutrophils % 72.2 % (38.7-73.9); Platelet Count 286 T/CUMM (130-400); Red Blood Count 4.83 MC/CUMM (3.8-5.5); Red Cell Distribution Width 23.7 % (9.3-17.3); White Blood Count 5.9 T/CUMM (4-12)
[2018-11-15 06:29] LABS: Albumin 2.7 G/DL (3.4-5.0); Bilirubin,Direct 3.07 MG/DL (0.0-0.20); Bilirubin,Indirect 1.2 MG/DL (0.0-1.0); Bilirubin,Total 4.3 MG/DL (0.2-1.0); Calcium 8.3 MG/DL (8.5-10.1); Osmolality,Calculated 262.5 MOS/KG (273-304); Potassium 3.8 MMOL/L (3.5-5.1)
[2018-11-15 07:18] LABS: Anisocytosis 2+; Platelet Estimate Normal; Target Cells 1+
[2018-11-15 07:19] LABS: Hypochromasia Slight; Macrocytosis Slight; Poikilocytosis 1+
[2018-11-15] MEDS: POTASSIUM CHLORIDE 20 MEQ TABLET PO PRN (08:19)
[2018-11-15] MEDS: POTASSIUM CHLORIDE 20 MEQ TABLET PO SCH (08:19)
[2018-11-15] MEDS: SPIRONOLACTONE 25 MG TABLET PO SCH ×2 (08:19→21:05)
[2018-11-15] MEDS: SUCRALFATE 1 GM/10 ML UDCUP PO SCH ×4 (08:19→21:05)
[2018-11-15] MEDS: TAMSULOSIN 0.4 MG CAPSULE PO SCH (08:19)
[2018-11-15] MEDS: ASPIRIN EC 81 MG TABLET PO SCH (08:20)
[2018-11-15] MEDS: FUROSEMIDE 40 MG/4 ML VIAL IV SCH ×2 (08:20→17:05)
[2018-11-15] MEDS: PROPRANOLOL 10 MG TABLET PO SCH ×3 (08:20→21:05)
[2018-11-15] MEDS: PANTOPRAZOLE 40 MG VIAL IV SCH ×2 (08:26→21:04)
[2018-11-15] MEDS: DIGOXIN 0.125 MG TABLET PO SCH (12:09)
[2018-11-15] MEDS: MAGNESIUM SULF RIDER 2 GM in PREMIX 1 EACH IV PRN (12:09)
[2018-11-16] MEDS: MORPHINE 4 MG/1 ML VIAL IV PRN ×4 (01:07→13:01)
[2018-11-16] MEDS: diphenhydrAMINE CAP 25 MG CAPSULE PO PRN (02:10)
[2018-11-16 05:35] LABS: Albumin 2.7 G/DL (3.4-5.0); Bilirubin,Direct 2.85 MG/DL (0.0-0.20); Bilirubin,Indirect 1.5 MG/DL (0.0-1.0); Bilirubin,Total 4.3 MG/DL (0.2-1.0); Calcium 8.2 MG/DL (8.5-10.1); Osmolality,Calculated 266.2 MOS/KG (273-304); Potassium 3.7 MMOL/L (3.5-5.1)
[2018-11-16] MEDS: SPIRONOLACTONE 25 MG TABLET PO SCH (09:36)
[2018-11-16] MEDS: TAMSULOSIN 0.4 MG CAPSULE PO SCH (09:37)
[2018-11-16] MEDS: POTASSIUM CHLORIDE 20 MEQ TABLET PO SCH (09:37)
[2018-11-16] MEDS: PROPRANOLOL 10 MG TABLET PO SCH ×2 (09:37→15:47)
[2018-11-16] MEDS: FUROSEMIDE 40 MG/4 ML VIAL IV SCH ×2 (09:41→15:50)
[2018-11-16] MEDS: PANTOPRAZOLE 40 MG VIAL IV SCH (09:44)
[2018-11-16] MEDS: SUCRALFATE 1 GM/10 ML UDCUP PO SCH ×3 (09:48→15:47)
[2018-11-16] MEDS: DIGOXIN 0.125 MG TABLET PO SCH (12:59)
[2018-11-16] MEDS: ASPIRIN EC 81 MG TABLET PO SCH (12:59)
[2018-11-16 16:01] VITALS: BP 100/68
== END 2018-11-16 17:54 | disposition home or self-care (01) | DRG 444 ==
LOC: N.5E → SUATTDRO 20:01
PROVIDERS: ADMIT Internal Medicine; ATTEND Internal Medicine

== ENCOUNTER 2018-11-25 21:38 | Observation (INO) ==
[2018-11-26 01:30] LABS: Basophils % 0.6 % (0.0-0.8); Eosinophils # 0.1 10*3/uL (0.0-0.87); Hematocrit 37.2 VOL% (42.0-52.0); Hemoglobin 11.7 GM/DL (14.0-18.0); Immature Granulocytes % 0.3 %; Immature Granulocytes Absolute 0.02 #; Lymphocytes # 1.5 10*3/uL (1.4-4.0); Lymphocytes % 21.5 % (21.2-54.2); Mean Corpuscular HGB Conc 31.5 GM/DL (32-36); Mean Corpuscular Hemoglobin 24 PG (27-34); Mean Corpuscular Volume 76.4 FL (87-102); Mean Platelet Volume 9.5 FL (9.6-12.0); Monocytes # 0.5 10*3/uL (0.11-0.8); Monocytes % 7.1 % (1.7-12.7); Neutrophils # 4.7 10*3/uL (1.4-7.4); Neutrophils % 69.5 % (38.7-73.9); Platelet Count 345 T/CUMM (130-400); Red Blood Count 4.87 MC/CUMM (3.8-5.5); Red Cell Distribution Width 23.2 % (9.3-17.3); White Blood Count 6.8 T/CUMM (4-12)
[2018-11-26] MEDS ORDERED: DOCUSATE SODIUM 100 MG CAPSULE PO PRN (01:41)
[2018-11-26] MEDS ORDERED: ONDANSETRON 4 MG/2 ML VIAL IV PRN (01:41)
[2018-11-26 01:52] LABS: Albumin 2.8 G/DL (3.4-5.0); Bilirubin,Total 2.4 MG/DL (0.2-1.0); Potassium 4.1 MMOL/L (3.5-5.1); Total Protein 6.9 G/DL (6.4-8.3)
[2018-11-26] MEDS: ENOXAPARIN 40 MG/0.4 ML SYRINGE SUBCUT SCH (02:41)
[2018-11-26 04:03] LABS: Platelet Estimate Normal; Polychromasia Few
[2018-11-26] MEDS ORDERED: MAGNESIUM SULF RIDER 4 GM in PREMIX 1 EACH IV PRN ×2 (05:02→14:55)
[2018-11-26] MEDS ORDERED: FUROSEMIDE 40 MG TABLET PO SCH (08:00)
[2018-11-26] MEDS: SUCRALFATE 1 GM/10 ML UDCUP PO SCH ×4 (09:05→22:18)
[2018-11-26] MEDS: SPIRONOLACTONE 25 MG TABLET PO SCH ×2 (09:05→22:18)
[2018-11-26] MEDS: ASPIRIN EC 81 MG TABLET PO SCH (09:05)
[2018-11-26] MEDS: TAMSULOSIN 0.4 MG CAPSULE PO SCH (09:05)
[2018-11-26] MEDS: POTASSIUM CHLORIDE 20 MEQ TABLET PO SCH (09:06)
[2018-11-26] MEDS: PANTOPRAZOLE 40 MG TABLET PO SCH ×2 (09:06→22:18)
[2018-11-26] MEDS: LACTOBACILLUS RHAMNOSUS GG CAPSULE PO SCH (09:06)
[2018-11-26] MEDS: DIGOXIN 0.125 MG TABLET PO SCH (12:22)
[2018-11-26] MEDS ORDERED: MAGNESIUM SULF RIDER 2 GM in PREMIX 1 EACH IV PRN (14:55)
[2018-11-26] MEDS ORDERED: FUROSEMIDE 20 MG/2 ML VIAL ONE (15:26)
[2018-11-26] MEDS: FUROSEMIDE 40 MG/4 ML VIAL IV SCH (15:42)
[2018-11-26] MEDS: METOPROLOL TARTRATE 25 MG TABLET PO SCH (15:42)
[2018-11-26 20:58] LABS: Barbiturates Screen,Urine Negative (Negative); Benzodiazepines Screen,Urine Negative (Negative); Cannabinoid Screen,Urine Negative (Negative); Opiate Screen,Urine Positive (Negative); Phencyclidine Screen,Urine Negative (Negative)
[2018-11-27] MEDS: ENOXAPARIN 40 MG/0.4 ML SYRINGE SUBCUT SCH (02:18)
[2018-11-27] MEDS: METOPROLOL TARTRATE 25 MG TABLET PO SCH ×3 (02:18→10:07)
[2018-11-27 05:12] LABS: Basophils % 0.3 % (0.0-0.8); Eosinophils # 0.1 10*3/uL (0.0-0.87); Hematocrit 33.8 VOL% (42.0-52.0); Hemoglobin 10.8 GM/DL (14.0-18.0); Immature Granulocytes % 0.6 %; Immature Granulocytes Absolute 0.04 #; Lymphocytes # 1.2 10*3/uL (1.4-4.0); Lymphocytes % 17.8 % (21.2-54.2); Mean Corpuscular Hemoglobin 24 PG (27-34); Mean Corpuscular Volume 74.8 FL (87-102); Mean Platelet Volume 10.6 FL (9.6-12.0); Monocytes # 0.4 10*3/uL (0.11-0.8); Monocytes % 6.4 % (1.7-12.7); Neutrophils # 5.1 10*3/uL (1.4-7.4); Neutrophils % 73.9 % (38.7-73.9); Platelet Count 319 T/CUMM (130-400); Red Blood Count 4.52 MC/CUMM (3.8-5.5); Red Cell Distribution Width 22.4 % (9.3-17.3); White Blood Count 6.9 T/CUMM (4-12)
[2018-11-27 05:36] LABS: Hypochromasia 1+; Ovalocytes Slight; Platelet Estimate Adequate
[2018-11-27 05:37] LABS: Calcium 8.1 MG/DL (8.5-10.1); Osmolality,Calculated 263.5 MOS/KG (273-304); Potassium 3.7 MMOL/L (3.5-5.1)
[2018-11-27 05:47] LABS: Calcium 8.3 MG/DL (8.5-10.1); Osmolality,Calculated 261.7 MOS/KG (273-304); Potassium 3.7 MMOL/L (3.5-5.1)
[2018-11-27] MEDS: PANTOPRAZOLE 40 MG TABLET PO SCH ×2 (09:01→20:39)
[2018-11-27] MEDS: FUROSEMIDE 40 MG/4 ML VIAL IV SCH ×2 (09:01→15:41)
[2018-11-27] MEDS: ASPIRIN EC 81 MG TABLET PO SCH (09:01)
[2018-11-27] MEDS: TAMSULOSIN 0.4 MG CAPSULE PO SCH (09:01)
[2018-11-27] MEDS: SPIRONOLACTONE 25 MG TABLET PO SCH ×2 (09:01→20:54)
[2018-11-27] MEDS: POTASSIUM CHLORIDE 20 MEQ TABLET PO SCH (09:01)
[2018-11-27] MEDS: SUCRALFATE 1 GM/10 ML UDCUP PO SCH ×4 (09:02→20:39)
[2018-11-27] MEDS: LACTOBACILLUS RHAMNOSUS GG CAPSULE PO SCH (10:07)
[2018-11-27] MEDS: CARVEDILOL 6.25 MG TABLET PO SCH ×2 (12:41→20:39)
[2018-11-27] MEDS: DIGOXIN 0.125 MG TABLET PO SCH (12:46)
[2018-11-27] MEDS: MAGNESIUM SULF RIDER 2 GM in PREMIX 1 EACH IV PRN (15:42)
[2018-11-27] MEDS: ACETAMINOPHEN 325 MG TABLET PO PRN (20:55)
[2018-11-27 23:30] LABS: Apearance,Urine CLEAR (Clear); Bilirubin,Urine Negative (Negative); Blood, Urine Negative (Negative); Glucose,Urine (UA) Negative (Negative); Hyaline Casts,Urine 8 /LPF (0-3); Ketones,Urine Negative (Negative); Mucus,Urine Occasional /LPF (Occasional); Nitrite,Urine Negative (Negative); Protein,Urine Negative; RBC,Urine 2 /HPF (0-4); Squamous Epithelial Cell,Urine Occasional /HPF (0-10); Urine Color Amber (Yellow); Urine Specific Gravity 1.017 (1.001-1.035); WBC,Urine 3 /HPF (0-6)
[2018-11-28] MEDS: ENOXAPARIN 40 MG/0.4 ML SYRINGE SUBCUT SCH (02:13)
[2018-11-28 04:25] LABS: Basophils % 0.3 % (0.0-0.8); Eosinophils # 0.1 10*3/uL (0.0-0.87); Eosinophils % 1.9 % (0.00-10.9); Hematocrit 34.3 VOL% (42.0-52.0); Hemoglobin 10.9 GM/DL (14.0-18.0); Immature Granulocytes % 0.6 %; Immature Granulocytes Absolute 0.04 #; Lymphocytes # 1.3 10*3/uL (1.4-4.0); Lymphocytes % 20.2 % (21.2-54.2); Mean Corpuscular HGB Conc 31.8 GM/DL (32-36); Mean Corpuscular Hemoglobin 24 PG (27-34); Mean Corpuscular Volume 74.9 FL (87-102); Mean Platelet Volume 10.2 FL (9.6-12.0); Monocytes # 0.5 10*3/uL (0.11-0.8); Monocytes % 8.4 % (1.7-12.7); Neutrophils # 4.4 10*3/uL (1.4-7.4); Neutrophils % 68.6 % (38.7-73.9); Platelet Count 277 T/CUMM (130-400); Red Blood Count 4.58 MC/CUMM (3.8-5.5); Red Cell Distribution Width 22.5 % (9.3-17.3); White Blood Count 6.5 T/CUMM (4-12)
[2018-11-28 04:53] LABS: Calcium 7.9 MG/DL (8.5-10.1); Osmolality,Calculated 260.7 MOS/KG (273-304); Potassium 3.1 MMOL/L (3.5-5.1)
[2018-11-28] MEDS: FUROSEMIDE 40 MG/4 ML VIAL IV SCH ×3 (08:15→16:39)
[2018-11-28] MEDS: MAGNESIUM SULF RIDER 2 GM in PREMIX 1 EACH IV PRN (08:15)
[2018-11-28] MEDS: SPIRONOLACTONE 25 MG TABLET PO SCH ×3 (08:16→23:10)
[2018-11-28] MEDS: PANTOPRAZOLE 40 MG TABLET PO SCH ×2 (08:16→23:10)
[2018-11-28] MEDS: POTASSIUM CHLORIDE 20 MEQ TABLET PO PRN (08:16)
[2018-11-28] MEDS: ASPIRIN EC 81 MG TABLET PO SCH (08:16)
[2018-11-28] MEDS: POTASSIUM CHLORIDE 20 MEQ TABLET PO SCH (08:16)
[2018-11-28] MEDS: TAMSULOSIN 0.4 MG CAPSULE PO SCH (08:17)
[2018-11-28] MEDS: SUCRALFATE 1 GM/10 ML UDCUP PO SCH ×4 (08:17→23:10)
[2018-11-28] MEDS: CARVEDILOL 6.25 MG TABLET PO SCH ×2 (08:17→23:10)
[2018-11-28] MEDS ORDERED: POTASSIUM CHLORIDE 10 MEQ TABLET PO ONE (09:11)
[2018-11-28] MEDS ORDERED: MAGNESIUM SULF RIDER 2 GM in PREMIX 1 EACH IV ONE (09:11)
[2018-11-28] MEDS: LACTOBACILLUS RHAMNOSUS GG CAPSULE PO SCH (10:34)
[2018-11-28] MEDS ORDERED: PHENOL 1.4% THROAT SPRAY 177 ML BOTTLE PO PRN (11:44)
[2018-11-28] MEDS: ACETAMINOPHEN 325 MG TABLET PO PRN ×2 (12:09→23:09)
[2018-11-28] MEDS: DIGOXIN 0.125 MG TABLET PO SCH (14:31)
[2018-11-29] MEDS: ENOXAPARIN 40 MG/0.4 ML SYRINGE SUBCUT SCH (02:09)
[2018-11-29 04:37] LABS: Basophils % 0.4 % (0.0-0.8); Eosinophils # 0.2 10*3/uL (0.0-0.87); Eosinophils % 3.4 % (0.00-10.9); Hematocrit 34.4 VOL% (42.0-52.0); Hemoglobin 10.9 GM/DL (14.0-18.0); Immature Granulocytes % 0.6 %; Immature Granulocytes Absolute 0.03 #; Lymphocytes # 1.2 10*3/uL (1.4-4.0); Lymphocytes % 22.6 % (21.2-54.2); Mean Corpuscular HGB Conc 31.7 GM/DL (32-36); Mean Corpuscular Hemoglobin 24 PG (27-34); Mean Corpuscular Volume 74.8 FL (87-102); Mean Platelet Volume 10.4 FL (9.6-12.0); Monocytes # 0.4 10*3/uL (0.11-0.8); Monocytes % 7.5 % (1.7-12.7); Neutrophils # 3.5 10*3/uL (1.4-7.4); Neutrophils % 65.5 % (38.7-73.9); Platelet Count 292 T/CUMM (130-400); Red Cell Distribution Width 22.3 % (9.3-17.3); White Blood Count 5.4 T/CUMM (4-12)
[2018-11-29 05:01] LABS: Calcium 7.8 MG/DL (8.5-10.1); Osmolality,Calculated 259.8 MOS/KG (273-304); Potassium 3.4 MMOL/L (3.5-5.1)
[2018-11-29] MEDS: POTASSIUM CHLORIDE 20 MEQ TABLET PO PRN (06:00)
[2018-11-29 06:31] LABS: Ovalocytes 2+; Platelet Estimate Normal; Polychromasia Few; Target Cells 1+
[2018-11-29 06:32] LABS: Burr Cells Few
[2018-11-29] MEDS: FUROSEMIDE 40 MG/4 ML VIAL IV SCH (09:41)
[2018-11-29] MEDS: PANTOPRAZOLE 40 MG TABLET PO SCH (09:42)
[2018-11-29] MEDS: SUCRALFATE 1 GM/10 ML UDCUP PO SCH ×2 (09:42→12:01)
[2018-11-29] MEDS: ASPIRIN EC 81 MG TABLET PO SCH (09:42)
[2018-11-29] MEDS: LACTOBACILLUS RHAMNOSUS GG CAPSULE PO SCH (09:42)
[2018-11-29] MEDS: TAMSULOSIN 0.4 MG CAPSULE PO SCH (09:42)
[2018-11-29] MEDS: POTASSIUM CHLORIDE 20 MEQ TABLET PO SCH (09:42)
[2018-11-29] MEDS: SPIRONOLACTONE 25 MG TABLET PO SCH (09:42)
[2018-11-29] MEDS: CARVEDILOL 6.25 MG TABLET PO SCH (09:42)
[2018-11-29] MEDS: ACETAMINOPHEN 325 MG TABLET PO PRN (12:04)
[2018-11-29] MEDS: DIGOXIN 0.125 MG TABLET PO SCH (12:05)
[2018-11-29 14:13] VITALS: BP 84/63
== END 2018-11-29 15:10 | disposition home or self-care (01) ==
LOC: N.TELES 23:12 → SUATTDRO 23:12 → INTOOBSV 23:12
PROVIDERS: ADMIT Internal Medicine; ATTEND Internal Medicine

== ENCOUNTER 2019-04-05 20:37 | Inpatient (IN) ==
[2019-04-05] MEDS ORDERED: NICOTINE 21 MG/24 HR PATCH TRANSDERM PRN (23:12)
[2019-04-05] MEDS ORDERED: diphenhydrAMINE CAP 25 MG CAPSULE PO PRN (23:12)
[2019-04-05] MEDS ORDERED: ONDANSETRON 4 MG/2 ML VIAL IV PRN (23:12)
[2019-04-05] MEDS ORDERED: LACTULOSE 20 GM/30 ML UDCUP PO PRN (23:12)
[2019-04-05] MEDS ORDERED: PANTOPRAZOLE 40 MG VIAL IV SCH (23:30)
[2019-04-05] MEDS: FAMOTIDINE 20 MG/2 ML VIAL IV SCH (23:40)
[2019-04-05 23:46] LABS: Basophils % 0.8 % (0.0-0.8); Eosinophils # 0.1 10*3/uL (0.0-0.87); Eosinophils % 1.3 % (0.00-10.9); Hematocrit 36.3 VOL% (42.0-52.0); Hemoglobin 11.2 GM/DL (14.0-18.0); Immature Granulocytes % 0.5 %; Immature Granulocytes Absolute 0.02 #; Lymphocytes % 25.8 % (21.2-54.2); Mean Corpuscular HGB Conc 30.9 GM/DL (32-36); Mean Corpuscular Volume 83.6 FL (87-102); Mean Platelet Volume 10.3 FL (9.6-12.0); Monocytes % 6.1 % (1.7-12.7); Neutrophils % 65.5 % (38.7-73.9); Platelet Count 201 T/CUMM (130-400); Red Blood Count 4.34 MC/CUMM (3.8-5.5); Red Cell Distribution Width 17.2 % (9.3-17.3); White Blood Count 3.9 T/CUMM (4-12)
[2019-04-06 00:03] LABS: Albumin 3.6 G/DL (3.4-5.0); Bilirubin,Total 1.4 MG/DL (0.2-1.0); Calcium 8.8 MG/DL (8.5-10.1); Osmolality,Calculated 273.7 MOS/KG (273-304); Risk Ratio 3.52; Total Protein 7.9 G/DL (6.4-8.3)
[2019-04-06 00:04] LABS: Alanine Aminotransferase 20 U/L (16-61); Albumin 3.4 G/DL (3.4-5.0); Alkaline Phosphatase 141 U/L (45-117); Amylase 48 U/L (25-115); Aspartate Amino Transferase 19 U/L (0-37); Bilirubin,Indirect 0.4 MG/DL (0.0-1.0); Total Protein 7.9 G/DL (6.4-8.3)
[2019-04-06] MEDS: MORPHINE 4 MG/1 ML VIAL IV PRN ×3 (00:08→21:14)
[2019-04-06 00:57] LABS: Hepatitis B Core IgM Quant 0.08 Index; Hepatitis B Surface Ag Quant < 0.10 Index; Hepatitis B Surface Ag Result Negative (Negative); Hepatitis C Virus Ab Quant 0.14 Index; Hepatitis C Virus Ab Result Negative (Negative)
[2019-04-06] MEDS: cefTRIAXone 1,000 MG in SYRINGE 1 EACH IV SCH (02:37)
[2019-04-06 08:00] LABS: Apearance,Urine CLEAR (Clear); Bilirubin,Urine Negative (Negative); Blood, Urine Negative (Negative); Glucose,Urine (UA) Negative (Negative); Ketones,Urine Negative (Negative); Mucus,Urine Moderate /LPF (Occasional); Nitrite,Urine Negative (Negative); Protein,Urine Negative; RBC,Urine 1 /HPF (0-4); Urine Color Amber (Yellow); Urine Specific Gravity > 1.060 (1.001-1.035); WBC,Urine 1 /HPF (0-6)
[2019-04-06 08:04] LABS: Barbiturates Screen,Urine Negative (Negative); Benzodiazepines Screen,Urine Positive (Negative); Cannabinoid Screen,Urine Negative (Negative); Opiate Screen,Urine Positive (Negative); Phencyclidine Screen,Urine Negative (Negative)
[2019-04-06] MEDS: ENOXAPARIN 40 MG/0.4 ML SYRINGE SUBCUT SCH (09:04)
[2019-04-06] MEDS: FAMOTIDINE 20 MG/2 ML VIAL IV SCH ×2 (09:06→21:10)
[2019-04-06 09:12] LABS: Basophils % 0.4 % (0.0-0.8); Eosinophils # 0.1 10*3/uL (0.0-0.87); Eosinophils % 2.2 % (0.00-10.9); Hematocrit 40.5 VOL% (42.0-52.0); Hemoglobin 12.4 GM/DL (14.0-18.0); Immature Granulocytes % 0.4 %; Immature Granulocytes Absolute 0.02 #; Mean Corpuscular HGB Conc 30.6 GM/DL (32-36); Mean Corpuscular Volume 85.1 FL (87-102); Mean Platelet Volume 10.2 FL (9.6-12.0); Monocytes % 4.5 % (1.7-12.7); Neutrophils % 70.5 % (38.7-73.9); Platelet Count 206 T/CUMM (130-400); Red Blood Count 4.76 MC/CUMM (3.8-5.5); Red Cell Distribution Width 17.5 % (9.3-17.3); White Blood Count 4.5 T/CUMM (4-12)
[2019-04-06 09:58] LABS: Albumin 3.9 G/DL (3.4-5.0); Bilirubin,Total 1.8 MG/DL (0.2-1.0); Calcium 9.2 MG/DL (8.5-10.1); Osmolality,Calculated 274.5 MOS/KG (273-304); Total Protein 8.6 G/DL (6.4-8.3)
[2019-04-06] MEDS: ACETAMINOPHEN 325 MG TABLET PO PRN (17:09)
[2019-04-06] MEDS: METOPROLOL TARTRATE 25 MG TABLET PO SCH (21:10)
[2019-04-07] MEDS: cefTRIAXone 1,000 MG in SYRINGE 1 EACH IV SCH (02:48)
[2019-04-07] MEDS: ACETAMINOPHEN 325 MG TABLET PO PRN ×2 (02:55→18:27)
[2019-04-07 05:13] LABS: Basophils % 0.6 % (0.0-0.8); Eosinophils # 0.1 10*3/uL (0.0-0.87); Hematocrit 34.9 VOL% (42.0-52.0); Immature Granulocytes % 0.3 %; Immature Granulocytes Absolute 0.01 #; Lymphocytes # 0.8 10*3/uL (1.4-4.0); Lymphocytes % 21.9 % (21.2-54.2); Mean Corpuscular HGB Conc 31.5 GM/DL (32-36); Mean Corpuscular Volume 83.5 FL (87-102); Mean Platelet Volume 11.1 FL (9.6-12.0); Monocytes % 9.9 % (1.7-12.7); Neutrophils % 65.3 % (38.7-73.9); Platelet Count 174 T/CUMM (130-400); Red Blood Count 4.18 MC/CUMM (3.8-5.5); Red Cell Distribution Width 17.4 % (9.3-17.3); White Blood Count 3.5 T/CUMM (4-12)
[2019-04-07 05:34] LABS: Albumin 3.3 G/DL (3.4-5.0); Bilirubin,Total 1.8 MG/DL (0.2-1.0); Calcium 8.5 MG/DL (8.5-10.1); Osmolality,Calculated 267.1 MOS/KG (273-304); Total Protein 7.3 G/DL (6.4-8.3)
[2019-04-07] MEDS: MORPHINE 4 MG/1 ML VIAL IV PRN ×3 (08:25→21:36)
[2019-04-07] MEDS: ASPIRIN EC 81 MG TABLET PO SCH (09:09)
[2019-04-07] MEDS: DIGOXIN 0.125 MG TABLET PO SCH (09:09)
[2019-04-07] MEDS: FUROSEMIDE 40 MG TABLET PO SCH (09:09)
[2019-04-07] MEDS: SPIRONOLACTONE 25 MG TABLET PO SCH (09:09)
[2019-04-07] MEDS: FAMOTIDINE 20 MG/2 ML VIAL IV SCH ×2 (09:10→21:32)
[2019-04-07] MEDS: LISINOPRIL 5 MG TABLET PO SCH (09:10)
[2019-04-07] MEDS: METOPROLOL TARTRATE 25 MG TABLET PO SCH ×2 (09:10→21:31)
[2019-04-07] MEDS: ENOXAPARIN 40 MG/0.4 ML SYRINGE SUBCUT SCH (09:11)
[2019-04-07] MEDS ORDERED: POTASSIUM CHLORIDE 20 MEQ TABLET PO ONE (09:22)
[2019-04-07] MEDS: POTASSIUM CHLORIDE 20 MEQ TABLET PO PRN ×3 (13:57→18:00)
[2019-04-08] MEDS: cefTRIAXone 1,000 MG in SYRINGE 1 EACH IV SCH (01:37)
[2019-04-08] MEDS: MORPHINE 4 MG/1 ML VIAL IV PRN ×3 (01:47→23:20)
[2019-04-08 05:41] LABS: Basophils % 0.6 % (0.0-0.8); Eosinophils % 0.9 % (0.00-10.9); Hematocrit 36.4 VOL% (42.0-52.0); Hemoglobin 11.3 GM/DL (14.0-18.0); Immature Granulocytes % 0.3 %; Immature Granulocytes Absolute 0.01 #; Lymphocytes # 0.9 10*3/uL (1.4-4.0); Lymphocytes % 28.3 % (21.2-54.2); Mean Corpuscular Volume 84.5 FL (87-102); Mean Platelet Volume 11.3 FL (9.6-12.0); Monocytes % 14.5 % (1.7-12.7); Neutrophils % 55.4 % (38.7-73.9); Platelet Count 182 T/CUMM (130-400); Red Blood Count 4.31 MC/CUMM (3.8-5.5); Red Cell Distribution Width 17.6 % (9.3-17.3); White Blood Count 3.2 T/CUMM (4-12)
[2019-04-08 06:28] LABS: INR 1.5; PT Patient Result 16.2 SECS
[2019-04-08 08:50] LABS: Albumin 4.1 G/DL (3.4-5.0); Bilirubin,Total 1.9 MG/DL (0.2-1.0); Calcium 9.3 MG/DL (8.5-10.1); Total Protein 8.9 G/DL (6.4-8.3)
[2019-04-08] MEDS: ACETAMINOPHEN 325 MG TABLET PO PRN (08:57)
[2019-04-08] MEDS: FAMOTIDINE 20 MG/2 ML VIAL IV SCH ×2 (08:58→23:07)
[2019-04-08] MEDS: DIGOXIN 0.125 MG TABLET PO SCH (08:58)
[2019-04-08] MEDS: FUROSEMIDE 40 MG TABLET PO SCH (08:58)
[2019-04-08] MEDS: LISINOPRIL 5 MG TABLET PO SCH (08:58)
[2019-04-08] MEDS: ASPIRIN EC 81 MG TABLET PO SCH (08:58)
[2019-04-08] MEDS: SPIRONOLACTONE 25 MG TABLET PO SCH (08:58)
[2019-04-08] MEDS: METOPROLOL TARTRATE 25 MG TABLET PO SCH ×2 (08:58→23:06)
[2019-04-08] MEDS ORDERED: GLUCAGON 1 MG VIAL ONE (09:14)
[2019-04-08] MEDS ORDERED: INDOMETHACIN SUPP 50 MG SUPP RECTAL ONE (09:30)
[2019-04-08] MEDS ORDERED: FUROSEMIDE 40 MG/4 ML VIAL ONE (10:49)
[2019-04-08] MEDS ORDERED: FUROSEMIDE 40 MG/4 ML VIAL IV ONE (10:59)
[2019-04-08] MEDS ORDERED: SODIUM CHLORIDE 0.9% 100 ML IV ONE (11:00)
[2019-04-08] MEDS ORDERED: EPINEPHrine 1 MG/ML VIAL ONE (11:00)
[2019-04-08] MEDS ORDERED: ETOMIDATE 40 MG/20 ML VIAL IV ONE (11:00)
[2019-04-08] MEDS ORDERED: fentaNYL 100 MCG/2 ML VIAL ONE (11:00)
[2019-04-08] MEDS ORDERED: MIDAZOLAM 2 MG/2 ML VIAL ONE (11:00)
[2019-04-08] MEDS ORDERED: SEVOFLURANE 1 UNIT/15 MINUTE INH ONE (11:00)
[2019-04-08] MEDS ORDERED: SUCCINYLCHOLINE 200 MG/10 ML VIAL ONE (11:00)
[2019-04-08] MEDS ORDERED: ROCURONIUM 100 MG/10 ML VIAL IV ONE (11:00)
[2019-04-09] MEDS: cefTRIAXone 1,000 MG in SYRINGE 1 EACH IV SCH (02:44)
[2019-04-09] MEDS: ACETAMINOPHEN 325 MG TABLET PO PRN ×4 (02:51→20:41)
[2019-04-09 05:36] LABS: Basophils % 0.6 % (0.0-0.8); Eosinophils # 0.1 10*3/uL (0.0-0.87); Hematocrit 35.1 VOL% (42.0-52.0); Hemoglobin 10.8 GM/DL (14.0-18.0); Immature Granulocytes % 0.3 %; Immature Granulocytes Absolute 0.01 #; Lymphocytes # 0.8 10*3/uL (1.4-4.0); Lymphocytes % 23.6 % (21.2-54.2); Mean Corpuscular HGB Conc 30.8 GM/DL (32-36); Mean Corpuscular Volume 85.2 FL (87-102); Monocytes % 12.4 % (1.7-12.7); Neutrophils % 61.1 % (38.7-73.9); Platelet Count 169 T/CUMM (130-400); Red Blood Count 4.12 MC/CUMM (3.8-5.5); Red Cell Distribution Width 17.6 % (9.3-17.3); White Blood Count 3.6 T/CUMM (4-12)
[2019-04-09 05:37] LABS: Albumin 3.3 G/DL (3.4-5.0); Bilirubin,Total 1.7 MG/DL (0.2-1.0); Calcium 8.7 MG/DL (8.5-10.1); Total Protein 7.4 G/DL (6.4-8.3)
[2019-04-09] MEDS: LACTATED RINGERS 1,000 ML IV SCH ×3 (08:28→12:35)
[2019-04-09] MEDS: SPIRONOLACTONE 25 MG TABLET PO SCH (09:10)
[2019-04-09] MEDS: ASPIRIN EC 81 MG TABLET PO SCH (09:11)
[2019-04-09] MEDS: FUROSEMIDE 40 MG TABLET PO SCH (09:11)
[2019-04-09] MEDS: FAMOTIDINE 20 MG/2 ML VIAL IV SCH ×2 (09:11→20:42)
[2019-04-09] MEDS: METOPROLOL TARTRATE 25 MG TABLET PO SCH ×2 (09:12→20:47)
[2019-04-09] MEDS: LISINOPRIL 5 MG TABLET PO SCH (09:12)
[2019-04-09] MEDS: DIGOXIN 0.125 MG TABLET PO SCH (09:12)
[2019-04-09] MEDS ORDERED: LIDOCAINE 1%/EPI INJ 20 ML VIAL ONE (10:25)
[2019-04-09] MEDS ORDERED: TISSUE ADHESIVE 1 EACH APPLICATOR TOP ONE (10:26)
[2019-04-09] MEDS ORDERED: BUPIVACAINE MPF 0.25% /EPI 30 ML VIAL ONE (10:52)
[2019-04-09] MEDS ORDERED: DESFLURANE 1 UNIT/15 MINUTE INH ONE (13:38)
[2019-04-09] MEDS ORDERED: KETOROLAC 30 MG/1 ML VIAL ONE (13:39)
[2019-04-09] MEDS ORDERED: ONDANSETRON 4 MG/2 ML VIAL ONE (13:39)
[2019-04-09] MEDS ORDERED: DEXAMETHASONE 4 MG/1 ML VIAL ONE (13:39)
[2019-04-09] MEDS ORDERED: MIDAZOLAM 2 MG/2 ML VIAL ONE (13:39)
[2019-04-09] MEDS ORDERED: ACETAMINOPHEN 1,000 MG/100 ML VIAL IV ONE (13:39)
[2019-04-09] MEDS ORDERED: ETOMIDATE 40 MG/20 ML VIAL IV ONE (13:39)
[2019-04-09] MEDS ORDERED: fentaNYL 100 MCG/2 ML VIAL ONE (13:39)
[2019-04-09] MEDS ORDERED: PHENYLEPHRINE 1 MG/10 ML SYRINGE IV ONE (13:39)
[2019-04-09] MEDS ORDERED: GLYCOPYRROLATE 0.4 MG/2 ML VIAL ONE (13:39)
[2019-04-09] MEDS ORDERED: ROCURONIUM 100 MG/10 ML VIAL IV ONE (13:40)
[2019-04-09] MEDS ORDERED: NEOSTIGMINE 10 MG/10 ML VIAL ONE (13:40)
[2019-04-09] MEDS: MORPHINE 4 MG/1 ML VIAL IV PRN ×3 (13:50→21:23)
[2019-04-09 22:13] LABS: Troponin I < 0.015 NG/ML (0.00-0.045)
[2019-04-10] MEDS ORDERED: MORPHINE 4 MG/1 ML VIAL IV ONE (01:43)
[2019-04-10] MEDS: cefTRIAXone 1,000 MG in SYRINGE 1 EACH IV SCH (02:54)
[2019-04-10 06:33] LABS: Hematocrit 38.9 VOL% (42.0-52.0); Hemoglobin 12.3 GM/DL (14.0-18.0); Immature Granulocytes % 0.4 %; Immature Granulocytes Absolute 0.03 #; Lymphocytes # 0.5 10*3/uL (1.4-4.0); Lymphocytes % 6.8 % (21.2-54.2); Mean Corpuscular HGB Conc 31.6 GM/DL (32-36); Mean Corpuscular Volume 83.8 FL (87-102); Mean Platelet Volume 11.8 FL (9.6-12.0); Monocytes % 7.5 % (1.7-12.7); Neutrophils % 85.3 % (38.7-73.9); Platelet Count 218 T/CUMM (130-400); Red Blood Count 4.64 MC/CUMM (3.8-5.5); Red Cell Distribution Width 17.8 % (9.3-17.3)
[2019-04-10 07:00] LABS: Calcium 8.9 MG/DL (8.5-10.1); Osmolality,Calculated 267.4 MOS/KG (273-304)
[2019-04-10 08:19] LABS: Albumin 3.6 G/DL (3.4-5.0); Bilirubin,Total 1.3 MG/DL (0.2-1.0); Osmolality,Calculated 271.1 MOS/KG (273-304); Total Protein 7.9 G/DL (6.4-8.3)
[2019-04-10] MEDS: MORPHINE 4 MG/1 ML VIAL IV PRN ×4 (08:21→20:54)
[2019-04-10] MEDS: SPIRONOLACTONE 25 MG TABLET PO SCH (08:26)
[2019-04-10] MEDS: FUROSEMIDE 40 MG TABLET PO SCH (08:27)
[2019-04-10] MEDS: ASPIRIN EC 81 MG TABLET PO SCH (08:27)
[2019-04-10] MEDS: LISINOPRIL 5 MG TABLET PO SCH (08:28)
[2019-04-10] MEDS: METOPROLOL TARTRATE 25 MG TABLET PO SCH ×2 (09:00→20:54)
[2019-04-10] MEDS: FAMOTIDINE 20 MG/2 ML VIAL IV SCH (09:31)
[2019-04-10] MEDS: PANTOPRAZOLE 40 MG TABLET PO SCH (10:09)
[2019-04-10] MEDS: ACETAMINOPHEN 325 MG TABLET PO PRN (10:10)
[2019-04-11] MEDS: cefTRIAXone 1,000 MG in SYRINGE 1 EACH IV SCH (01:51)
[2019-04-11] MEDS: MORPHINE 4 MG/1 ML VIAL IV PRN ×6 (01:51→21:21)
[2019-04-11 05:26] LABS: Basophils % 0.2 % (0.0-0.8); Eosinophils % 0.3 % (0.00-10.9); Hematocrit 33.8 VOL% (42.0-52.0); Hemoglobin 10.8 GM/DL (14.0-18.0); Immature Granulocytes % 0.3 %; Immature Granulocytes Absolute 0.02 #; Lymphocytes # 0.8 10*3/uL (1.4-4.0); Lymphocytes % 12.8 % (21.2-54.2); Mean Corpuscular Volume 82.2 FL (87-102); Mean Platelet Volume 10.7 FL (9.6-12.0); Monocytes % 9.5 % (1.7-12.7); Neutrophils % 76.9 % (38.7-73.9); Platelet Count 204 T/CUMM (130-400); Red Blood Count 4.11 MC/CUMM (3.8-5.5); Red Cell Distribution Width 17.3 % (9.3-17.3); White Blood Count 6.5 T/CUMM (4-12)
[2019-04-11 05:59] LABS: Albumin 3.1 G/DL (3.4-5.0); Bilirubin,Total 0.8 MG/DL (0.2-1.0); Calcium 8.4 MG/DL (8.5-10.1); Osmolality,Calculated 269.1 MOS/KG (273-304); Total Protein 6.8 G/DL (6.4-8.3)
[2019-04-11] MEDS: PANTOPRAZOLE 40 MG TABLET PO SCH (09:30)
[2019-04-11] MEDS: POTASSIUM CHLORIDE 20 MEQ TABLET PO PRN ×3 (09:30→13:54)
[2019-04-11] MEDS: ASPIRIN EC 81 MG TABLET PO SCH (09:30)
[2019-04-11] MEDS: LISINOPRIL 5 MG TABLET PO SCH (09:30)
[2019-04-11] MEDS: METOPROLOL TARTRATE 25 MG TABLET PO SCH ×2 (09:30→21:19)
[2019-04-11] MEDS: FUROSEMIDE 40 MG TABLET PO SCH (09:30)
[2019-04-11] MEDS: SPIRONOLACTONE 25 MG TABLET PO SCH (09:30)
[2019-04-11] MEDS ORDERED: MAGNESIUM SULF RIDER 2 GM in PREMIX 1 EACH IV PRN (11:06)
[2019-04-11] MEDS ORDERED: MAGNESIUM SULF RIDER 4 GM in PREMIX 1 EACH IV PRN (11:06)
[2019-04-11] MEDS ORDERED: DIGOXIN 0.125 MG TABLET PO SCH (13:00)
[2019-04-12] MEDS: cefTRIAXone 1,000 MG in SYRINGE 1 EACH IV SCH (01:20)
[2019-04-12] MEDS: MORPHINE 4 MG/1 ML VIAL IV PRN ×3 (01:20→09:57)
[2019-04-12] MEDS: POTASSIUM CHLORIDE 20 MEQ TABLET PO PRN ×2 (01:20→09:56)
[2019-04-12] MEDS: LACTATED RINGERS 1,000 ML IV SCH (02:27)
[2019-04-12 05:44] LABS: Basophils % 0.3 % (0.0-0.8); Eosinophils # 0.1 10*3/uL (0.0-0.87); Eosinophils % 0.8 % (0.00-10.9); Hematocrit 38.3 VOL% (42.0-52.0); Immature Granulocytes % 0.3 %; Immature Granulocytes Absolute 0.02 #; Lymphocytes % 15.3 % (21.2-54.2); Mean Corpuscular HGB Conc 31.3 GM/DL (32-36); Mean Corpuscular Volume 83.4 FL (87-102); Mean Platelet Volume 11.2 FL (9.6-12.0); Monocytes % 9.3 % (1.7-12.7); Platelet Count 240 T/CUMM (130-400); Red Blood Count 4.59 MC/CUMM (3.8-5.5); White Blood Count 6.2 T/CUMM (4-12)
[2019-04-12 05:56] LABS: Albumin 2.9 G/DL (3.4-5.0); Bilirubin,Total 1.1 MG/DL (0.2-1.0); Calcium 8.4 MG/DL (8.5-10.1); Osmolality,Calculated 264.4 MOS/KG (273-304); Total Protein 6.7 G/DL (6.4-8.3)
[2019-04-12] MEDS: ASPIRIN EC 81 MG TABLET PO SCH (09:56)
[2019-04-12] MEDS: FUROSEMIDE 40 MG TABLET PO SCH (09:56)
[2019-04-12] MEDS: SPIRONOLACTONE 25 MG TABLET PO SCH (09:56)
[2019-04-12] MEDS: LISINOPRIL 5 MG TABLET PO SCH (09:56)
[2019-04-12] MEDS: PANTOPRAZOLE 40 MG TABLET PO SCH (09:56)
[2019-04-12] MEDS: ACETAMINOPHEN 325 MG TABLET PO PRN (09:56)
[2019-04-12] MEDS: METOPROLOL TARTRATE 25 MG TABLET PO SCH (09:57)
[2019-04-12 11:46] VITALS: BP 103/66
== END 2019-04-12 15:52 | disposition home or self-care (01) | DRG 263 ==
LOC: N.3E → SUATTDRO 23:12
PROVIDERS: ADMIT Internal Medicine; ATTEND Internal Medicine
PROC: LAPCHOL (2019-04-09 10:34)

== ENCOUNTER 2019-05-21 20:46 | Inpatient (IN) ==
[2019-05-21] MEDS ORDERED: ACETAMINOPHEN 325 MG TABLET PO PRN (23:41)
[2019-05-21] MEDS ORDERED: NICOTINE 21 MG/24 HR PATCH TRANSDERM PRN (23:41)
[2019-05-21] MEDS ORDERED: ONDANSETRON 4 MG/2 ML VIAL IV PRN (23:41)
[2019-05-21] MEDS ORDERED: guaiFENesin/DM ER 600-30 MG TABLET PO PRN (23:41)
[2019-05-21] MEDS ORDERED: BISACODYL 5 MG TABLET PO PRN (23:41)
[2019-05-22] MEDS: MORPHINE 4 MG/1 ML VIAL IV PRN ×4 (00:26→20:38)
[2019-05-22] MEDS: ALBUTEROL/IPRATROPIUM 3 ML NEB RESP TX SCH ×4 (00:28→19:43)
[2019-05-22 00:51] LABS: Apearance,Urine CLEAR (Clear); Bilirubin,Urine Negative (Negative); Blood, Urine Negative (Negative); Glucose,Urine (UA) Negative (Negative); Hyaline Casts,Urine 17 /LPF (0-3); Ketones,Urine Negative (Negative); Mucus,Urine Occasional /LPF (Occasional); Nitrite,Urine Negative (Negative); Protein,Urine Negative; RBC,Urine <1 /HPF (0-4); Renal Epithelial Cells,Urine Occasional /HPF (<1); Urine Color Yellow (Yellow); Urine Specific Gravity 1.006 (1.001-1.035); Urine Urobilinogen < 2.0 EU/DL (0.2-1.0); WBC,Urine 1 /HPF (0-6)
[2019-05-22 00:58] LABS: Barbiturates Screen,Urine Negative (Negative); Benzodiazepines Screen,Urine Negative (Negative); Cannabinoid Screen,Urine Negative (Negative); Opiate Screen,Urine Negative (Negative); Phencyclidine Screen,Urine Negative (Negative)
[2019-05-22 00:59] LABS: Basophils % 0.4 % (0.0-0.8); Eosinophils # 0.1 10*3/uL (0.0-0.87); Eosinophils % 1.1 % (0.00-10.9); Hematocrit 40.6 VOL% (42.0-52.0); Hemoglobin 12.3 GM/DL (14.0-18.0); Immature Granulocytes % 0.2 %; Immature Granulocytes Absolute 0.01 #; Lymphocytes # 0.9 10*3/uL (1.4-4.0); Lymphocytes % 20.9 % (21.2-54.2); Mean Corpuscular HGB Conc 30.3 GM/DL (32-36); Mean Corpuscular Volume 81.7 FL (87-102); Mean Platelet Volume 9.6 FL (9.6-12.0); Monocytes % 5.8 % (1.7-12.7); Neutrophils % 71.6 % (38.7-73.9); Platelet Count 324 T/CUMM (130-400); Red Blood Count 4.97 MC/CUMM (3.8-5.5); White Blood Count 4.5 T/CUMM (4-12)
[2019-05-22 01:01] LABS: Albumin 3.4 G/DL (3.4-5.0); Bilirubin,Total 1.8 MG/DL (0.2-1.0); Calcium 8.8 MG/DL (8.5-10.1); Osmolality,Calculated 277.4 MOS/KG (273-304); Risk Ratio 4.11; Thyroid Stimulating Hormone 1.72 uIU/ml (0.358-3.74); Total Protein 8.5 G/DL (6.4-8.3); VLDL CHOLESTEROL 13.2 MG/DL
[2019-05-22] MEDS: DIGOXIN 0.125 MG TABLET PO SCH (08:43)
[2019-05-22] MEDS: SPIRONOLACTONE 25 MG TABLET PO SCH (08:44)
[2019-05-22] MEDS: PANTOPRAZOLE 40 MG TABLET PO SCH (08:44)
[2019-05-22] MEDS: METOPROLOL TARTRATE 25 MG TABLET PO SCH ×2 (08:44→20:44)
[2019-05-22] MEDS ORDERED: FUROSEMIDE 40 MG/4 ML VIAL IV SCH (09:00)
[2019-05-22] MEDS: LISINOPRIL 2.5 MG TABLET PO SCH ×2 (11:28→20:44)
[2019-05-22] MEDS: FUROSEMIDE 40 MG/4 ML VIAL IV SCH (20:35)
[2019-05-22] MEDS: diphenhydrAMINE CAP 25 MG CAPSULE PO PRN (23:11)
[2019-05-23] MEDS: ALBUTEROL/IPRATROPIUM 3 ML NEB RESP TX SCH ×4 (01:03→19:31)
[2019-05-23] MEDS: MORPHINE 4 MG/1 ML VIAL IV PRN ×2 (01:22→18:25)
[2019-05-23 02:54] LABS: Basophils % 0.6 % (0.0-0.8); Eosinophils # 0.1 10*3/uL (0.0-0.87); Eosinophils % 1.1 % (0.00-10.9); Hemoglobin 11.6 GM/DL (14.0-18.0); Immature Granulocytes % 0.2 %; Immature Granulocytes Absolute 0.01 #; Lymphocytes # 0.7 10*3/uL (1.4-4.0); Lymphocytes % 12.8 % (21.2-54.2); Mean Corpuscular HGB Conc 30.5 GM/DL (32-36); Mean Corpuscular Volume 81.5 FL (87-102); Mean Platelet Volume 9.6 FL (9.6-12.0); Monocytes % 6.3 % (1.7-12.7); Platelet Count 339 T/CUMM (130-400); Red Blood Count 4.66 MC/CUMM (3.8-5.5); Red Cell Distribution Width 20.9 % (9.3-17.3); White Blood Count 5.4 T/CUMM (4-12)
[2019-05-23 03:19] LABS: Albumin 3.7 G/DL (3.4-5.0); Bilirubin,Total 1.4 MG/DL (0.2-1.0); Calcium 9.5 MG/DL (8.5-10.1); Osmolality,Calculated 272.8 MOS/KG (273-304); Total Protein 9.1 G/DL (6.4-8.3)
[2019-05-23] MEDS: DIGOXIN 0.125 MG TABLET PO SCH (08:09)
[2019-05-23] MEDS: PANTOPRAZOLE 40 MG TABLET PO SCH (08:10)
[2019-05-23] MEDS: LISINOPRIL 2.5 MG TABLET PO SCH ×2 (08:10→21:42)
[2019-05-23] MEDS: FUROSEMIDE 40 MG/4 ML VIAL IV SCH ×2 (08:10→21:43)
[2019-05-23] MEDS: METOPROLOL TARTRATE 25 MG TABLET PO SCH ×2 (08:10→21:42)
[2019-05-23] MEDS: SPIRONOLACTONE 25 MG TABLET PO SCH (08:10)
[2019-05-23] MEDS: diphenhydrAMINE CAP 25 MG CAPSULE PO PRN ×2 (08:10→17:25)
[2019-05-23] MEDS: POTASSIUM CHLORIDE 20 MEQ TABLET PO PRN ×3 (08:10→18:25)
[2019-05-24] MEDS: diphenhydrAMINE CAP 25 MG CAPSULE PO PRN ×2 (00:10→09:33)
[2019-05-24] MEDS: ALBUTEROL/IPRATROPIUM 3 ML NEB RESP TX SCH ×3 (00:30→13:46)
[2019-05-24] MEDS: MORPHINE 4 MG/1 ML VIAL IV PRN ×2 (01:53→06:35)
[2019-05-24] MEDS ORDERED: FUROSEMIDE 20 MG/2 ML VIAL ONE (09:01)
[2019-05-24] MEDS: DIGOXIN 0.125 MG TABLET PO SCH (09:33)
[2019-05-24] MEDS: SPIRONOLACTONE 25 MG TABLET PO SCH (09:33)
[2019-05-24] MEDS: LISINOPRIL 2.5 MG TABLET PO SCH (09:34)
[2019-05-24] MEDS: PANTOPRAZOLE 40 MG TABLET PO SCH (09:35)
[2019-05-24] MEDS: METOPROLOL TARTRATE 25 MG TABLET PO SCH (09:35)
[2019-05-24] MEDS: FUROSEMIDE 40 MG/4 ML VIAL IV SCH (09:37)
[2019-05-24 09:52] LABS: Osmolality,Calculated 277.5 MOS/KG (273-304)
[2019-05-24] MEDS ORDERED: GABAPENTIN 100 MG CAPSULE PO SCH (12:30)
[2019-05-24 12:46] VITALS: BP 106/68
[2019-05-24] MEDS: POTASSIUM CHLORIDE 20 MEQ TABLET PO PRN (14:48)
[2019-05-24] MEDS ORDERED: FUROSEMIDE 40 MG TABLET PO SCH (16:00)
== END 2019-05-24 15:31 | disposition home or self-care (01) | DRG 293 ==
LOC: SUATTDRO 22:28 → N.2E 22:28 → INTOOBSV 22:28
PROVIDERS: ADMIT Internal Medicine; ATTEND Internal Medicine

== ENCOUNTER 2019-07-14 19:31 | Inpatient (IN) ==
[2019-07-14] MEDS ORDERED: NICOTINE 21 MG/24 HR PATCH TRANSDERM PRN (23:06)
[2019-07-14] MEDS ORDERED: ONDANSETRON 4 MG/2 ML VIAL IV PRN (23:06)
[2019-07-14] MEDS ORDERED: ACETAMINOPHEN 325 MG TABLET PO PRN (23:06)
[2019-07-14] MEDS ORDERED: diphenhydrAMINE CAP 25 MG CAPSULE PO PRN (23:06)
[2019-07-14] MEDS ORDERED: BISACODYL 5 MG TABLET PO PRN (23:06)
[2019-07-14 23:22] LABS: Basophils % 0.5 % (0.0-0.8); Eosinophils % 0.5 % (0.00-10.9); Hematocrit 33.6 VOL% (42.0-52.0); Hemoglobin 10.5 GM/DL (14.0-18.0); Immature Granulocytes % 0.2 %; Immature Granulocytes Absolute 0.01 #; Lymphocytes # 0.6 10*3/uL (1.4-4.0); Lymphocytes % 14.3 % (21.2-54.2); Mean Corpuscular HGB Conc 31.3 GM/DL (32-36); Mean Corpuscular Volume 79.4 FL (87-102); Mean Platelet Volume 9.1 FL (9.6-12.0); Neutrophils % 78.5 % (38.7-73.9); Platelet Count 243 T/CUMM (130-400); Red Blood Count 4.23 MC/CUMM (3.8-5.5); Red Cell Distribution Width 19.1 % (9.3-17.3); White Blood Count 4.1 T/CUMM (4-12)
[2019-07-14] MEDS: MORPHINE 4 MG/1 ML VIAL IV PRN (23:28)
[2019-07-14] MEDS: guaiFENesin/DM ER 600-30 MG TABLET PO PRN (23:30)
[2019-07-15 00:47] LABS: Albumin 3.4 G/DL (3.4-5.0); Bilirubin,Total 2.7 MG/DL (0.2-1.0); Calcium 8.7 MG/DL (8.5-10.1); Thyroid Stimulating Hormone 1.26 uIU/ml (0.358-3.74); Total Protein 7.9 G/DL (6.4-8.3)
[2019-07-15] MEDS ORDERED: MORPHINE 4 MG/1 ML VIAL IV ONE (02:44)
[2019-07-15] MEDS ORDERED: PNEUMOCOCCAL VACCINE (23 VALENT) 0.5 ML VIAL IM ONE (06:32)
[2019-07-15] MEDS: MORPHINE 4 MG/1 ML VIAL IV PRN ×3 (06:51→14:29)
[2019-07-15] MEDS ORDERED: POTASSIUM CHLORIDE 20 MEQ TABLET PO PRN (07:48)
[2019-07-15] MEDS ORDERED: MAGNESIUM SULF RIDER 4 GM in PREMIX 1 EACH IV PRN (07:49)
[2019-07-15] MEDS ORDERED: MAGNESIUM SULF RIDER 2 GM in PREMIX 1 EACH IV PRN (07:49)
[2019-07-15 10:34] LABS: Calcium 8.5 MG/DL (8.5-10.1); Osmolality,Calculated 267.2 MOS/KG (273-304)
[2019-07-15] MEDS: ASPIRIN EC 81 MG TABLET PO SCH (14:28)
[2019-07-15] MEDS: SPIRONOLACTONE 25 MG TABLET PO SCH (14:28)
[2019-07-15] MEDS: DIGOXIN 0.125 MG TABLET PO SCH (14:28)
[2019-07-15] MEDS: MAGNESIUM CHLORIDE 64 MG TABLET PO SCH (14:29)
[2019-07-15 17:58] LABS: Apearance,Urine CLEAR (Clear); Barbiturates Screen,Urine Negative (Negative); Benzodiazepines Screen,Urine Negative (Negative); Blood, Urine Negative (Negative); Cannabinoid Screen,Urine Positive (Negative); Glucose,Urine (UA) Negative (Negative); Hyaline Casts,Urine 22 /LPF (0-3); Ketones,Urine Negative (Negative); Mucus,Urine Many /LPF (Occasional); Nitrite,Urine Negative (Negative); Opiate Screen,Urine Positive (Negative); Phencyclidine Screen,Urine Negative (Negative); Protein,Urine 30 MG/DL; RBC,Urine 6 /HPF (0-4); Squamous Epithelial Cell,Urine Occasional /HPF (0-10); Transitional Epi Cells,Urine Occasional /HPF (<1); Urine Color Amber (Yellow); WBC,Urine 20 /HPF (0-6)
[2019-07-15 17:59] LABS: Bilirubin,Urine Small mg/dL (Negative)
[2019-07-15] MEDS: guaiFENesin/DM ER 600-30 MG TABLET PO PRN (20:22)
[2019-07-15] MEDS ORDERED: METOPROLOL TARTRATE 25 MG TABLET PO SCH (21:00)
[2019-07-15] MEDS ORDERED: LISINOPRIL 2.5 MG TABLET PO SCH (21:00)
[2019-07-15] MEDS: METOPROLOL SUCCINATE XL 25 MG TABLET PO SCH (21:28)
[2019-07-16 04:51] LABS: Basophils % 0.3 % (0.0-0.8); Eosinophils % 0.3 % (0.00-10.9); Hematocrit 35.5 VOL% (42.0-52.0); Hemoglobin 11.1 GM/DL (14.0-18.0); Immature Granulocytes % 0.5 %; Immature Granulocytes Absolute 0.02 #; Lymphocytes # 0.8 10*3/uL (1.4-4.0); Lymphocytes % 19.8 % (21.2-54.2); Mean Corpuscular HGB Conc 31.3 GM/DL (32-36); Mean Corpuscular Volume 79.6 FL (87-102); Mean Platelet Volume 10.3 FL (9.6-12.0); Monocytes % 6.8 % (1.7-12.7); Neutrophils % 72.3 % (38.7-73.9); Platelet Count 217 T/CUMM (130-400); Red Blood Count 4.46 MC/CUMM (3.8-5.5); Red Cell Distribution Width 18.8 % (9.3-17.3)
[2019-07-16 05:09] LABS: Calcium 8.2 MG/DL (8.5-10.1); Osmolality,Calculated 257.9 MOS/KG (273-304)
[2019-07-16 05:15] LABS: Burr Cells Slight; Hypochromasia 1+; Ovalocytes Slight; Platelet Estimate Adequate
[2019-07-16] MEDS: MORPHINE 4 MG/1 ML VIAL IV PRN ×2 (05:17→10:47)
[2019-07-16] MEDS ORDERED: LISINOPRIL 2.5 MG TABLET PO SCH (09:00)
[2019-07-16] MEDS: ASPIRIN EC 81 MG TABLET PO SCH (09:29)
[2019-07-16] MEDS: METOPROLOL SUCCINATE XL 25 MG TABLET PO SCH (09:29)
[2019-07-16] MEDS: SPIRONOLACTONE 25 MG TABLET PO SCH (09:29)
[2019-07-16] MEDS: MAGNESIUM CHLORIDE 64 MG TABLET PO SCH (09:29)
[2019-07-16 12:31] VITALS: BP 115/75
[2019-07-16] MEDS: DIGOXIN 0.125 MG TABLET PO SCH (12:41)
== END 2019-07-16 13:50 | disposition home or self-care (01) | DRG 309 ==
LOC: SUATTDRO 21:21 → N.TELES 21:21
PROVIDERS: ADMIT Emergency Medicine; ATTEND Hospitalist

== ENCOUNTER 2020-01-15 03:48 | Inpatient (IN) ==
[2020-01-15] MEDS ORDERED: NICOTINE 21 MG/24 HR PATCH TRANSDERM PRN (05:32)
[2020-01-15] MEDS ORDERED: hydrALAZINE 20 MG/1 ML VIAL IV PRN (05:32)
[2020-01-15] MEDS ORDERED: MORPHINE 4 MG/1 ML VIAL IV PRN (05:32)
[2020-01-15] MEDS ORDERED: ACETAMINOPHEN 325 MG TABLET PO PRN (05:32)
[2020-01-15] MEDS ORDERED: ZALEPLON 5 MG CAPSULE PO PRN (05:32)
[2020-01-15] MEDS ORDERED: DEXTROSE 50% 25 GM/50 ML VIAL IV PRN (05:32)
[2020-01-15] MEDS ORDERED: ALBUTEROL 2.5 MG/3 ML NEB RESP TX PRN (05:32)
[2020-01-15] MEDS ORDERED: ONDANSETRON 4 MG/2 ML VIAL IV PRN (05:32)
[2020-01-15] MEDS ORDERED: guaiFENesin/DM ER 600-30 MG TABLET PO PRN (05:32)
[2020-01-15] MEDS ORDERED: GLUCAGON 1 MG VIAL IM PRN (05:32)
[2020-01-15 06:33] LABS: Basophils % 0.7 % (0.0-0.8); Eosinophils % 0.2 % (0.00-10.9); Hematocrit 36.6 VOL% (42.0-52.0); Hemoglobin 11.5 GM/DL (14.0-18.0); Immature Granulocytes % 0.2 %; Immature Granulocytes Absolute 0.01 #; Lymphocytes # 0.5 10*3/uL (1.4-4.0); Mean Corpuscular HGB Conc 31.4 GM/DL (32-36); Mean Corpuscular Volume 85.7 FL (87-102); Mean Platelet Volume 8.9 FL (9.6-12.0); Monocytes % 8.3 % (1.7-12.7); Neutrophils % 78.6 % (38.7-73.9); Platelet Count 315 T/CUMM (130-400); Red Blood Count 4.27 MC/CUMM (3.8-5.5); Red Cell Distribution Width 18.3 % (9.3-17.3); White Blood Count 4.1 T/CUMM (4-12)
[2020-01-15 06:51] LABS: Osmolality,Calculated 268.2 MOS/KG (273-304)
[2020-01-15 06:53] LABS: INR 1.3; PT Patient Result 14.1 SECS (9.8-11.9)
[2020-01-15 07:40] LABS: Albumin 3.8 G/DL (3.4-5.0); Bilirubin,Direct 1.04 MG/DL (0.0-0.20); Bilirubin,Indirect 0.9 MG/DL (0.0-1.0); Bilirubin,Total 1.9 MG/DL (0.2-1.0); Total Protein 8.9 G/DL (6.4-8.3)
[2020-01-15] MEDS: ASPIRIN EC 81 MG TABLET PO SCH (09:14)
[2020-01-15] MEDS: PANTOPRAZOLE 40 MG TABLET PO SCH (09:14)
[2020-01-15] MEDS: FUROSEMIDE 40 MG/4 ML VIAL IV SCH ×2 (09:14→16:44)
[2020-01-15] MEDS: DOCUSATE SODIUM 100 MG CAPSULE PO SCH ×2 (09:15→22:28)
[2020-01-15] MEDS: METOPROLOL TARTRATE 25 MG TABLET PO SCH ×2 (09:15→22:29)
[2020-01-15] MEDS: DIGOXIN 0.125 MG TABLET PO SCH (09:15)
[2020-01-15 10:32] LABS: Barbiturates Screen,Urine Negative (Negative); Benzodiazepines Screen,Urine Negative (Negative); Cannabinoid Screen,Urine Positive (Negative); Opiate Screen,Urine Positive (Negative); Phencyclidine Screen,Urine Negative (Negative)
[2020-01-15] MEDS: GABAPENTIN 100 MG CAPSULE PO SCH (22:29)
[2020-01-15] MEDS: ACETAMINOPHEN 325 MG TABLET PO SCH (22:29)
[2020-01-16 07:12] LABS: Albumin 3.6 G/DL (3.4-5.0); Bilirubin,Total 2.4 MG/DL (0.2-1.0); Calcium 9.3 MG/DL (8.5-10.1); Osmolality,Calculated 264.5 MOS/KG (273-304); Total Protein 8.7 G/DL (6.4-8.3)
[2020-01-16] MEDS: ASPIRIN EC 81 MG TABLET PO SCH (08:31)
[2020-01-16] MEDS: DIGOXIN 0.125 MG TABLET PO SCH (08:31)
[2020-01-16] MEDS: METOPROLOL TARTRATE 25 MG TABLET PO SCH (08:31)
[2020-01-16] MEDS: PANTOPRAZOLE 40 MG TABLET PO SCH (08:31)
[2020-01-16] MEDS: GABAPENTIN 100 MG CAPSULE PO SCH (08:32)
[2020-01-16] MEDS: DOCUSATE SODIUM 100 MG CAPSULE PO SCH (08:32)
[2020-01-16] MEDS: ACETAMINOPHEN 325 MG TABLET PO SCH (08:32)
[2020-01-16] MEDS: FUROSEMIDE 40 MG/4 ML VIAL IV SCH (08:33)
[2020-01-16] MEDS ORDERED: SPIRONOLACTONE 25 MG TABLET PO SCH (09:00)
[2020-01-16 12:33] VITALS: BP 94/68
[2020-01-16] MEDS ORDERED: GABAPENTIN 300 MG CAPSULE PO SCH (15:00)
== END 2020-01-16 14:36 | disposition home or self-care (01) | DRG 293 ==
LOC: N.TELEN → SUATTDRO 05:11
PROVIDERS: ADMIT Internal Medicine; ATTEND Internal Medicine

== ENCOUNTER 2020-03-11 20:47 | Observation (INO) ==
[2020-03-11] MEDS ORDERED: ONDANSETRON 4 MG/2 ML VIAL IV PRN (23:32)
[2020-03-11] MEDS ORDERED: ACETAMINOPHEN 325 MG TABLET PO PRN (23:32)
[2020-03-11] MEDS ORDERED: DOCUSATE SODIUM 100 MG CAPSULE PO PRN (23:32)
[2020-03-12] MEDS ORDERED: NICOTINE 21 MG/24 HR PATCH TRANSDERM PRN (00:54)
[2020-03-12] MEDS ORDERED: NITROGLYCERIN SL 0.4 MG TABLET SL PRN (01:07)
[2020-03-12] MEDS: MORPHINE 4 MG/1 ML VIAL IV PRN ×4 (02:44→22:41)
[2020-03-12 06:22] LABS: Basophils % 0.4 % (0.0-0.8); Eosinophils # 0.1 10*3/uL (0.0-0.87); Hematocrit 33.3 VOL% (42.0-52.0); Hemoglobin 10.5 GM/DL (14.0-18.0); Immature Granulocytes % 0.2 %; Immature Granulocytes Absolute 0.01 #; Lymphocytes # 0.6 10*3/uL (1.4-4.0); Lymphocytes % 13.2 % (21.2-54.2); Mean Corpuscular HGB Conc 31.5 GM/DL (32-36); Mean Corpuscular Volume 82.8 FL (87-102); Mean Platelet Volume 9.5 FL (9.6-12.0); Monocytes % 3.8 % (1.7-12.7); Neutrophils % 80.4 % (38.7-73.9); Platelet Count 291 T/CUMM (130-400); Red Blood Count 4.02 MC/CUMM (3.8-5.5); Red Cell Distribution Width 17.2 % (9.3-17.3); White Blood Count 4.5 T/CUMM (4-12)
[2020-03-12 06:54] LABS: Bilirubin,Total 2.7 MG/DL (0.2-1.0); Calcium 8.4 MG/DL (8.5-10.1); Osmolality,Calculated 266.1 MOS/KG (273-304); Total Protein 7.3 G/DL (6.4-8.3)
[2020-03-12] MEDS: ASPIRIN EC 81 MG TABLET PO SCH (08:06)
[2020-03-12] MEDS: DIGOXIN 0.125 MG TABLET PO SCH (08:06)
[2020-03-12] MEDS: GABAPENTIN 300 MG CAPSULE PO SCH ×3 (08:06→20:34)
[2020-03-12] MEDS: METOPROLOL TARTRATE 25 MG TABLET PO SCH ×2 (08:06→20:34)
[2020-03-12] MEDS: lisinopriL 2.5 MG TABLET PO SCH ×2 (08:06→20:34)
[2020-03-12] MEDS: PANTOPRAZOLE 40 MG TABLET PO SCH (08:06)
[2020-03-12] MEDS: TAMSULOSIN 0.4 MG CAPSULE PO SCH (08:06)
[2020-03-12] MEDS: SPIRONOLACTONE 25 MG TABLET PO SCH (08:06)
[2020-03-12] MEDS ORDERED: FUROSEMIDE 40 MG TABLET PO SCH (09:00)
[2020-03-12] MEDS ORDERED: ENOXAPARIN 40 MG/0.4 ML SYRINGE SUBCUT SCH (09:00)
[2020-03-12] MEDS ORDERED: POTASSIUM CHLORIDE 20 MEQ TABLET PO ONE (09:04)
[2020-03-12] MEDS: FUROSEMIDE 40 MG/4 ML VIAL IV SCH (15:21)
[2020-03-13] MEDS: MORPHINE 4 MG/1 ML VIAL IV PRN ×3 (01:59→21:14)
[2020-03-13 06:38] LABS: Basophils % 0.7 % (0.0-0.8); Eosinophils # 0.2 10*3/uL (0.0-0.87); Eosinophils % 3.7 % (0.00-10.9); Hemoglobin 10.3 GM/DL (14.0-18.0); Immature Granulocytes % 0.2 %; Immature Granulocytes Absolute 0.01 #; Lymphocytes # 0.5 10*3/uL (1.4-4.0); Lymphocytes % 12.4 % (21.2-54.2); Mean Corpuscular HGB Conc 32.2 GM/DL (32-36); Mean Corpuscular Volume 81.6 FL (87-102); Mean Platelet Volume 9.3 FL (9.6-12.0); Monocytes % 6.3 % (1.7-12.7); Neutrophils % 76.7 % (38.7-73.9); Platelet Count 280 T/CUMM (130-400); Red Blood Count 3.92 MC/CUMM (3.8-5.5); Red Cell Distribution Width 17.1 % (9.3-17.3); White Blood Count 4.3 T/CUMM (4-12)
[2020-03-13 07:03] LABS: Albumin 2.8 G/DL (3.4-5.0); Bilirubin,Direct 1.02 MG/DL (0.0-0.20); Calcium 8.2 MG/DL (8.5-10.1); Osmolality,Calculated 265.2 MOS/KG (273-304); Total Protein 7.3 G/DL (6.4-8.3)
[2020-03-13] MEDS ORDERED: POTASSIUM CHLORIDE 20 MEQ TABLET PO ONE (07:31)
[2020-03-13] MEDS ORDERED: MAGNESIUM SULF INJ 3 GM in SODIUM CHLORIDE 0.9% 100 ML IV ONE (08:00)
[2020-03-13] MEDS: FUROSEMIDE 40 MG/4 ML VIAL IV SCH ×2 (08:45→15:25)
[2020-03-13] MEDS: PANTOPRAZOLE 40 MG TABLET PO SCH (08:46)
[2020-03-13] MEDS: METOPROLOL TARTRATE 25 MG TABLET PO SCH ×2 (08:47→21:08)
[2020-03-13] MEDS: SPIRONOLACTONE 25 MG TABLET PO SCH (08:47)
[2020-03-13] MEDS: ASPIRIN EC 81 MG TABLET PO SCH (08:47)
[2020-03-13] MEDS: lisinopriL 2.5 MG TABLET PO SCH ×2 (08:47→21:07)
[2020-03-13] MEDS: DIGOXIN 0.125 MG TABLET PO SCH (08:47)
[2020-03-13] MEDS: GABAPENTIN 300 MG CAPSULE PO SCH ×3 (08:47→21:10)
[2020-03-13] MEDS: TAMSULOSIN 0.4 MG CAPSULE PO SCH (08:48)
[2020-03-13] MEDS: ASCORBIC ACID 500 MG TABLET PO SCH ×2 (08:51→21:09)
[2020-03-13 11:32] LABS: INR 1.4; PT Patient Result 14.9 SECS (9.8-11.9)
[2020-03-13] MEDS ORDERED: ALBUMIN 25% 12.5 GM/50 ML VIAL IV ONE (13:16)
[2020-03-13] MEDS: ALBUTEROL 1.25 MG/3 ML NEB RESP TX SCH ×2 (13:32→19:40)
[2020-03-13] MEDS ORDERED: ALBUMIN 25% 12.5 GM in PREMIX 1 EACH IV ONE (14:00)
[2020-03-13] MEDS: OXYMETAZOLINE 0.05% NASAL SPRAY 15 ML BOTTLE BOTH NARES SCH ×2 (14:10→21:09)
[2020-03-14] MEDS: ALBUTEROL 1.25 MG/3 ML NEB RESP TX SCH ×3 (00:20→13:12)
[2020-03-14 04:31] LABS: Basophils % 0.4 % (0.0-0.8); Eosinophils # 0.1 10*3/uL (0.0-0.87); Eosinophils % 2.2 % (0.00-10.9); Hematocrit 34.1 VOL% (42.0-52.0); Hemoglobin 10.7 GM/DL (14.0-18.0); Immature Granulocytes % 0.2 %; Immature Granulocytes Absolute 0.01 #; Lymphocytes # 0.5 10*3/uL (1.4-4.0); Lymphocytes % 11.7 % (21.2-54.2); Mean Corpuscular HGB Conc 31.4 GM/DL (32-36); Mean Corpuscular Volume 82.6 FL (87-102); Mean Platelet Volume 9.1 FL (9.6-12.0); Monocytes % 7.5 % (1.7-12.7); Platelet Count 274 T/CUMM (130-400); Red Blood Count 4.13 MC/CUMM (3.8-5.5); Red Cell Distribution Width 17.2 % (9.3-17.3); White Blood Count 4.5 T/CUMM (4-12)
[2020-03-14 08:13] LABS: Osmolality,Calculated 256.9 MOS/KG (273-304)
[2020-03-14] MEDS: ASCORBIC ACID 500 MG TABLET PO SCH (08:56)
[2020-03-14] MEDS: GABAPENTIN 300 MG CAPSULE PO SCH (08:56)
[2020-03-14] MEDS: PANTOPRAZOLE 40 MG TABLET PO SCH (08:56)
[2020-03-14] MEDS: DIGOXIN 0.125 MG TABLET PO SCH (08:56)
[2020-03-14] MEDS: ASPIRIN EC 81 MG TABLET PO SCH (08:56)
[2020-03-14] MEDS: SPIRONOLACTONE 25 MG TABLET PO SCH (08:56)
[2020-03-14] MEDS: TAMSULOSIN 0.4 MG CAPSULE PO SCH (08:56)
[2020-03-14] MEDS: FUROSEMIDE 40 MG/4 ML VIAL IV SCH (08:57)
[2020-03-14] MEDS: METOPROLOL TARTRATE 25 MG TABLET PO SCH (08:59)
[2020-03-14] MEDS: lisinopriL 2.5 MG TABLET PO SCH (08:59)
[2020-03-14] MEDS: OXYMETAZOLINE 0.05% NASAL SPRAY 15 ML BOTTLE BOTH NARES SCH (08:59)
[2020-03-14] MEDS ORDERED: POTASSIUM CHLORIDE 20 MEQ TABLET PO ONE (11:03)
[2020-03-14 12:27] VITALS: BP 103/59
== END 2020-03-14 14:15 | disposition home or self-care (01) ==
LOC: N.TELEN → SUATTDRO 22:46
PROVIDERS: ADMIT Internal Medicine; ATTEND Internal Medicine